=== PATIENT | female | born 1955 | race Two or more races ===

== ENCOUNTER 2017-01-22 20:18 | Inpatient (IN) | payer MEDICAID ==
[~2017-01-22] VITALS: Ht 157.5 cm; Wt 64.9 kg
[~2017-01-22 20:18] MED LIST: ASPIR 8181 MG ORAL; BENAZEPRIL HCL10 MG ORAL; BP MEDS; CIPROFLOXACIN500 M2 ORAL; HUMULIN 70100 UNIT/2 SUBQ; IRON325 M1 PO; LEVAQUIN750 MG ORAL; METFORMIN HCL500 M1 ORAL; METRONIDAZOLE500 MG ORAL; NORCO 5-325 TA1 EACH ORAL; NOVOLOG100 UNIT/3 SUBQ; [UNRECOGNIZED DRUG - SUPPLY] MC; [UNRECOGNIZED DRUG - SUPPLY] MC
[2017-01-22 20:30] VITALS: BP 179/61
[2017-01-22] MEDS ORDERED: IBUPROFEN600 MG ORAL (20:31)
[2017-01-22] MEDS ORDERED: Morphine Sulfate 4mg/ml Inj IVP ONE ×2 (21:00→23:30)
[2017-01-22 21:12] LABS: BASOPHILS % (AUTO) 0.4 % (0.0-2.0); EOSINOPHILS % (AUTO) 0.1 % (0.0-3.0); LYMPHOCYTES % (AUTO) 11.7 % (20.0-45.0); MEAN CORPUSCULAR HEMOGLOBIN 24.4 PG (27.0-31.0); MEAN CORPUSCULAR HGB CONC 31.9 G/DL (32.0-36.0); MEAN CORPUSCULAR VOLUME 76 FL (80-99); MEAN PLATELET VOLUME 6.4 FL (6.5-10.1); MONOCYTES % (AUTO) 7.2 % (1.0-10.0); NEUTROPHILS % (AUTO) 80.6 % (45.0-75.0); PLATELET COUNT 359 K/UL (150-450); RED BLOOD COUNT 4.69 M/UL (4.20-5.40); RED CELL DISTRIBUTION WIDTH 14.6 % (11.6-14.8); WHITE BLOOD COUNT 9.7 K/UL (4.8-10.8)
--- NOTE | 2017-01-22 21:20 | Emergency Room Report ---
History of Present Illness General Chief Complaint: Abdominal Pain Source: Patient (Rubén Marsh) Present Illness HPI Patient is a 61 female who presented after having increased abdominal pain for one day. Patient was noted to be in the right lower abdomen. Patient prior history of bowel obstructions as well as colostomy and urostomy for cervical cancer. The patient had gradually worsening pain over the past one day. She reported having nausea without vomiting. As reported having intermittent worsening of pain. She reports taking medications for diabetes as well as hypertension. (Rubén Marsh) Allergies: Coded Allergies: METOCLOPRAMIDE (Verified Allergy, Unknown, 05/08/11) Patient History Past Medical History: see triage record Now: No Reviewed Nursing Documentation: PMH: Agreed, PSxH: Agreed (Rubén Marsh) Nursing Documentation-PMH Hx Cardiac Problems: Yes Hx Hypertension: Yes Hx Pacemaker: No Hx Asthma: No Hx COPD: No Hx Diabetes: Yes Hx Cancer: Yes - CERVICAL 2004 Hx Gastrointestinal Problems: Yes - Colostomy Hx Dialysis: No Hx Neurological Problems: No Hx Cerebrovascular Accident: No Hx Seizures: No (Rubén Marsh) Review of Systems All Other Systems: negative except mentioned in HPI (Rubén Marsh) Physical Exam Vital Signs Date Time Temp Pulse Resp B/P Pulse Ox O2 Delivery O2 Flow Rate FiO2 01/22/17 20:27 99.7 81 22 190/71 99 Room Air General Appearance: alert, GCS 15, non-toxic, moderate distress Head: normocephalic ENT: hearing grossly normal, normal pharynx Neck: full range of motion, supple, thyroid normal Respiratory: chest non-tender, normal breath sounds Cardiovascular #1: normal peripheral pulses, regular rate, rhythm, no edema Gastrointestinal: normal inspection, normal bowel sounds, non tender, soft, no mass, no organomegaly Musculoskeletal: normal inspection, back normal Neurologic: normal inspection, alert, oriented x3, responsive, movie shot 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 Differential diagnoses included ischemic bowel, appendicitis, perforated viscus, abdominal aortic aneurysm, inferior myocardial infarction, viral gastroenteritis, bowel obstruction. Because of complexity of patient's case laboratory testing and imaging studies were ordered.The patient was given IV fluids as well as IV pain medications. Laboratory studies showed a normal white blood count. Given the patient's prior history of obstruction the patient will likely need further evaluation as an inpatient A CT of the abdomen pelvis was ordered and is currently pending.Dr. Michelle was contacted for inpatient management due to complexity of medical condition. Labs Test 01/22/17 20:51 01/22/17 21:15 White Blood Count 9.7 K/UL (4.8-10.8) Red Blood Count 4.69 M/UL (4.20-5.40) Hemoglobin 11.4 G/DL (12.0-16.0) Hematocrit 35.8 % (37.0-47.0) Mean Corpuscular Volume 76 FL (80-99) Mean Corpuscular Hemoglobin 24.4 PG (27.0-31.0) Mean Corpuscular Hemoglobin Concent 31.9 G/DL (32.0-36.0) Red Cell Distribution Width 14.6 % (11.6-14.8) Platelet Count 359 K/UL (150-450) Mean Platelet Volume 6.4 FL (6.5-10.1) Neutrophils (%) (Auto) 80.6 % (45.0-75.0) Lymphocytes (%) (Auto) 11.7 % (20.0-45.0) Monocytes (%) (Auto) 7.2 % (1.0-10.0) Eosinophils (%) (Auto) 0.1 % (0.0-3.0) Basophils (%) (Auto) 0.4 % (0.0-2.0) Sodium Level 139 mEQ/L (135-145) Potassium Level 3.6 mEQ/L (3.4-4.9) Chloride Level 101 mEQ/L (98-107) Carbon Dioxide Level 24 mEQ/L (20-30) Anion Gap 14 (5-15) Blood Urea Nitrogen 16 mg/dL (7-23) Creatinine 0.6 mg/dL (0.5-0.9) Estimat Glomerular Filtration Rate > 60 mL/min (>60) Glucose Level 251 mg/dL (74-106) Calcium Level 9.3 mg/dL (8.6-10.2) Total Bilirubin 0.4 mg/dL (0.0-1.2) Aspartate Amino Transf (AST/SGOT) 16 U/L (5-40) Alanine Aminotransferase (ALT/SGPT) 17 U/L (3-33) Alkaline Phosphatase 82 U/L (35-104) Total Protein 7.1 g/dL (6.6-8.7) Albumin 3.9 g/dL (3.5-5.2) Globulin 3.2 g/dL Albumin/Globulin Ratio 1.2 (1.0-2.7) Lipase 13 U/L (< 60) (Rubén Marsh) ER Course This is an out to me. She was admitted for UTI and abdominal pain. She had a CT scan done. CT scan showed small bowel obstructions. NG tube will be ordered an x-ray ordered. (AGUSTIN JACOBS M.D.) CT/MRI/US Diagnostic Results CT/MRI/US Diagnostic Results : Imaging Test Ordered: CT abdomen and pelvis Impression read by radiologist. Small bowel obstructions. (AGUSTIN JACOBS M.D.) Last Vital Signs Date Time Temp Pulse Resp B/P Pulse Ox O2 Delivery O2 Flow Rate FiO2 01/22/17 20:30 99.7 73 16 179/61 99 Room Air Status: unchanged (Rubén Marsh) Status: improved (AGUSTIN JACOBS M.D.) Disposition: ADMITTED INPATIENT Condition: Serious Referrals: NOT CHOSEN YU/,REFERRING (PCP) Rubén Marsh Jan 22, 2017 21:20 AGUSTIN JACOBS M.D. Jan 23, 2017 00:14
[2017-01-22 21:29] LABS: ALANINE AMINOTRANSFERASE 17 U/L (3-33); ALBUMIN/GLOBULIN RATIO 1.2 (1.0-2.7); ANION GAP 14 (5-15); ASPARTATE AMINO TRANSFERASE 16 U/L (5-40); CALCIUM 9.3 mg/dL (8.6-10.2); CARBON DIOXIDE 24 mEQ/L (20-30); CHLORIDE 101 mEQ/L (98-107); CREATININE 0.6 mg/dL (0.5-0.9); GLOMERULAR FILTRATION RATE > 60 mL/min (>60); HEMOLYSIS 1; LIPASE 13 U/L (< 60); POTASSIUM 3.6 mEQ/L (3.4-4.9); SODIUM 139 mEQ/L (135-145); TOTAL PROTEIN 7.1 g/dL (6.6-8.7)
[2017-01-22 21:44] LABS: INR 0.9 (0.9-1.1); PROTHROMBIN TIME 9.4 SEC (9.30-11.50)
[2017-01-22 21:55] LABS: APPEARANCE,URINE SLIGHTLY CLOUDY; KETONES,URINE 2+ (NEGATIVE); LEUKOCYTE ESTERASE ,URINE 3+ (NEGATIVE); NITRITE,URINE POSITIVE (NEGATIVE); PH,URINE 9 (4.5-8.0); PROTEIN,URINE 3+ (NEGATIVE); UROBILINOGEN,URINE 4 MG/DL (0.0-1.0)
[2017-01-22 22:13] LABS: RBC,URINE 15-20 /HPF (0 - 2)
[2017-01-22 22:14] LABS: AMORPHOUS SEDIMENT,UR FEW /LPF; BACTERIA,URINE MANY /HPF; ICTOTEST NEGATIVE; SQUAMOUS EPITHELIAL CELL,UR FEW /LPF (NONE/OCC); URIC ACID CRYSTALS,URINE FEW /LPF
[2017-01-22 22:30] VITALS: BP 145/59
[2017-01-22] MEDS ORDERED: cefTRIAXone 1 GM in NS 55 ML IVPB ONE (22:30)
[2017-01-22] MEDS ORDERED: Mylanta II UD 30ml ORAL PRN (23:45)
[2017-01-22] MEDS ORDERED: Ketorolac 30mg Inj IV PRN (23:45)
[2017-01-22] MEDS ORDERED: Nitroglycerin Subl 0.4mg tab (Bottle Of 25) SL PRN (23:45)
[2017-01-22] MEDS ORDERED: Morphine Sulfate 2mg/ml Inj IVP PRN (23:45)
[2017-01-22] MEDS ORDERED: Miralax 17gm pkt ORAL PRN (23:45)
[2017-01-23] VITALS: BP_SYST 135; BP_SYST 153; BP_DIAS 56; BP_DIAS 78
[2017-01-23] MEDS ORDERED: Vancomycin 1gm inj IVPB ONE (00:42)
[2017-01-23] MEDS ORDERED: Zosyn 3.375gm inj ONE (00:42)
[2017-01-23] MEDS ORDERED: Vancomycin 1gm/D5W 275ml IVPB SCH ×2 (01:00)
[2017-01-23] MEDS: Morphine Sulfate 4mg/ml Inj IVP PRN ×2 (03:28→09:51)
[2017-01-23] MEDS: Piperacillin/Tazobactam 3.375 GM in NS 110 ML IVPB SCH ×3 (03:28→18:36)
[2017-01-23 04:00] VITALS: BP 133/67
[2017-01-23] MEDS ORDERED: NovoLOG Insulin Flexpen SUBQ SCH (06:30)
[2017-01-23 06:42] LABS: MEAN CORPUSCULAR HEMOGLOBIN 24.2 PG (27.0-31.0); MEAN CORPUSCULAR HGB CONC 31.6 G/DL (32.0-36.0); MEAN CORPUSCULAR VOLUME 77 FL (80-99); MEAN PLATELET VOLUME 6.4 FL (6.5-10.1); PLATELET COUNT 326 K/UL (150-450); RED BLOOD COUNT 4.35 M/UL (4.20-5.40); RED CELL DISTRIBUTION WIDTH 14.8 % (11.6-14.8); WHITE BLOOD COUNT 8.7 K/UL (4.8-10.8)
[2017-01-23 06:50] LABS: HEMOGLOBIN A1C 7.8 % (< 6.0)
[2017-01-23 07:04] LABS: INR 0.9 (0.9-1.1); PROTHROMBIN TIME 9.5 SEC (9.30-11.50)
[2017-01-23 07:44] LABS: ALANINE AMINOTRANSFERASE 14 U/L (3-33); ALBUMIN/GLOBULIN RATIO 1.2 (1.0-2.7); AMYLASE 40 U/L (10-110); ANION GAP 13 (5-15); ASPARTATE AMINO TRANSFERASE 13 U/L (5-40); CALCIUM 8.3 mg/dL (8.6-10.2); CARBON DIOXIDE 25 mEQ/L (20-30); CHLORIDE 103 mEQ/L (98-107); CREATININE 0.6 mg/dL (0.5-0.9); GLOMERULAR FILTRATION RATE > 60 mL/min (>60); HEMOLYSIS 1; LIPASE 11 U/L (< 60); POTASSIUM 3.1 mEQ/L (3.4-4.9); SODIUM 141 mEQ/L (135-145); TOTAL PROTEIN 6.5 g/dL (6.6-8.7)
[2017-01-23 07:46] LABS: THYROID STIMULATING HORMONE 0.559 uIU/mL (0.300-4.500)
[2017-01-23 08:00] VITALS: BP 136/62
[2017-01-23] MEDS: Benazepril 10mg tab ORAL SCH (09:23)
[2017-01-23] MEDS: Heparin 5000 units/ml inj SUBQ SCH ×2 (09:29→20:33)
--- NOTE | 2017-01-23 09:48 | History and Physical ---
History of Present Illness General Date patient seen: Jan 23, 2017 Time patient seen: 09:00 Reason for Hospitalization: Abdominal Pain Present Illness HPI 61 female with PMH of DM, HTN, cervical cancer presented with increased right lower quadrant abdominal pain for one day. Patient with prior history of bowel obstructions as well as colostomy and urostomy for cervical cancer. Reported nausea w/out vomiting . CT A/P revealed small bowel obstruction versus ileus/enteritis, Fatty liver, Chronic persistent hydronephrosis patient afebrile, no leucocytosis anemic -11.4/35.8 UA with evidence of UTI patient admitted for further management Allergies: Coded Allergies: METOCLOPRAMIDE (Verified Allergy, Unknown, 05/08/11) Medication History Scheduled Aspirin* (Aspir 81*), 81 MG ORAL DAILY, (Reported) Benazepril Hcl* (Benazepril Hcl*), 10 MG ORAL DAILY, (Reported) Ibuprofen* (Motrin*), 600 MG ORAL FOUR TIMES A DAY, (Reported) Metformin Hcl* (Metformin Hcl*), 500 MG ORAL TWICE A DAY, (Reported) Scheduled PRN Ciprofloxacin Hcl* (Ciprofloxacin Hcl*), 500 MG ORAL EVERY 12 HOURS PRN Miscellaneous Medications Hum Insulin Nph/Reg Insulin Hm (Humulin 70-30 Vial), 0 SUBQ, (Reported) Durable Medical Equipment Colostomy Bags (One-Piece Drainable Pouch), 1 EACH [facility], (DME) Colostomy Washer (Adapt Barrier Ring), 1 EACH [facility], (DME) Patient History Healthcare decision maker Resuscitation status Advanced Directive on File Past Medical/Surgical History Past Medical/Surgical History: (1) Cervical cancer (2) Diabetes (3) HTN (hypertension) (4) Anemia Review of Systems Constitutional: Reports: weakness ENT: Reports: no symptoms Respiratory: Reports: no symptoms Cardiovascular: Reports: no symptoms Gastrointestinal: Reports: see HPI Genitourinary: Reports: other - hx of cervical Ca Musculoskeletal: Reports: no symptoms Psychiatric: Reports: no symptoms Neurological: Reports: no symptoms Endocrine: Reports: other - DM Hematologic/Lymphatic: Reports: no symptoms Physical Exam General Appearance: no apparent distress, alert Lines, tubes and drains: peripheral HEENT: normocephalic, atraumatic, anicteric Neck: supple Respiratory/Chest: lungs clear, normal breath sounds, no respiratory distress Cardiovascular/Chest: normal peripheral pulses, normal rate, regular rhythm Abdomen: soft - mild lower abdomen tenderness, no rebound, no guarding, no rigidity , other - colostomy Extremities: normal range of motion, non-tender, no calf tenderness Skin Exam: normal pigmentation, warm/dry Neurologic: alert, oriented x 3, responsive Musculoskeletal: normal muscle bulk Last 24 Hour Vital Signs Date Time Temp Pulse Resp B/P Pulse Ox O2 Delivery O2 Flow Rate FiO2 01/23/17 09:23 136/62 01/23/17 08:00 98.4 73 18 136/62 95 Room Air 01/23/17 04:11 98.2 01/23/17 04:00 98.4 82 20 133/67 Room Air 01/23/17 01:53 98.2 01/23/17 00:00 99.7 87 13 135/56 95 Room Air 01/23/17 00:00 99.7 87 13 135/56 95 Room Air 01/23/17 00:00 98.2 75 20 153/78 97 Room Air 01/22/17 23:53 99.7 01/22/17 22:30 99.7 78 17 145/59 96 Room Air 01/22/17 21:43 99.7 01/22/17 20:30 99.7 73 16 179/61 99 Room Air 01/22/17 20:27 99.7 81 22 190/71 99 Room Air Intake and Output 01/22/17 01/23/17 19:00 07:00 Intake Total 499.916 ml Output Total 1050 ml Balance -550.084 ml Intake IV Total 499.916 ml Output Urine Total 1050 ml Laboratory Tests Test 01/22/17 20:51 01/22/17 21:15 01/23/17 04:30 White Blood Count 9.7 K/UL (4.8-10.8) 8.7 K/UL (4.8-10.8) Red Blood Count 4.69 M/UL (4.20-5.40) 4.35 M/UL (4.20-5.40) Hemoglobin 11.4 G/DL (12.0-16.0) L 10.5 G/DL (12.0-16.0) L Hematocrit 35.8 % (37.0-47.0) L 33.3 % (37.0-47.0) L Mean Corpuscular Volume 76 FL (80-99) L 77 FL (80-99) L Mean Corpuscular Hemoglobin 24.4 PG (27.0-31.0) L 24.2 PG (27.0-31.0) L Mean Corpuscular Hemoglobin Concent 31.9 G/DL (32.0-36.0) L 31.6 G/DL (32.0-36.0) L Red Cell Distribution Width 14.6 % (11.6-14.8) 14.8 % (11.6-14.8) Platelet Count 359 K/UL (150-450) 326 K/UL (150-450) Mean Platelet Volume 6.4 FL (6.5-10.1) L 6.4 FL (6.5-10.1) L Neutrophils (%) (Auto) 80.6 % (45.0-75.0) H % (45.0-75.0) Lymphocytes (%) (Auto) 11.7 % (20.0-45.0) L % (20.0-45.0) Monocytes (%) (Auto) 7.2 % (1.0-10.0) % (1.0-10.0) Eosinophils (%) (Auto) 0.1 % (0.0-3.0) % (0.0-3.0) Basophils (%) (Auto) 0.4 % (0.0-2.0) % (0.0-2.0) Prothrombin Time 9.4 SEC (9.30-11.50) 9.5 SEC (9.30-11.50) Prothromb Time International Ratio 0.9 (0.9-1.1) 0.9 (0.9-1.1) Activated Partial Thromboplast Time 23 SEC (23-33) 24 SEC (23-33) Sodium Level 139 mEQ/L (135-145) 141 mEQ/L (135-145) Potassium Level 3.6 mEQ/L (3.4-4.9) 3.1 mEQ/L (3.4-4.9) L Chloride Level 101 mEQ/L (98-107) 103 mEQ/L (98-107) Carbon Dioxide Level 24 mEQ/L (20-30) 25 mEQ/L (20-30) Anion Gap 14 (5-15) 13 (5-15) Blood Urea Nitrogen 16 mg/dL (7-23) 11 mg/dL (7-23) Creatinine 0.6 mg/dL (0.5-0.9) 0.6 mg/dL (0.5-0.9) Estimat Glomerular Filtration Rate > 60 mL/min (>60) > 60 mL/min (>60) Glucose Level 251 mg/dL (74-106) H 271 mg/dL (74-106) H Calcium Level 9.3 mg/dL (8.6-10.2) 8.3 mg/dL (8.6-10.2) L Total Bilirubin 0.4 mg/dL (0.0-1.2) 0.4 mg/dL (0.0-1.2) Aspartate Amino Transf (AST/SGOT) 16 U/L (5-40) 13 U/L (5-40) Alanine Aminotransferase (ALT/SGPT) 17 U/L (3-33) 14 U/L (3-33) Alkaline Phosphatase 82 U/L (35-104) 74 U/L (35-104) Total Protein 7.1 g/dL (6.6-8.7) 6.5 g/dL (6.6-8.7) L Albumin 3.9 g/dL (3.5-5.2) 3.6 g/dL (3.5-5.2) Globulin 3.2 g/dL 2.9 g/dL Albumin/Globulin Ratio 1.2 (1.0-2.7) 1.2 (1.0-2.7) Lipase 13 U/L (< 60) 11 U/L (< 60) Urine Color Brown Urine Appearance Slightly cloudy Urine pH 9 (4.5-8.0) Urine Specific [place] 1.015 (1.005-1.035) Urine Protein 3+ (NEGATIVE) H Urine Glucose (UA) Negative (NEGATIVE) Urine Ketones 2+ (NEGATIVE) H Urine Occult Blood 4+ (NEGATIVE) H Urine Nitrite Positive (NEGATIVE) H Urine Bilirubin 1+ (NEGATIVE) H Urine Ictotest Negative Urine Urobilinogen 4 MG/DL (0.0-1.0) H Urine Leukocyte Esterase 3+ (NEGATIVE) H Urine RBC 15-20 /HPF (0 - 2) H Urine WBC 10-15 /HPF (0 - 2) H Urine Squamous Epithelial Cells Few /LPF (NONE/OCC) Urine Uric Acid Crystals Few /LPF (NONE) H Urine Amorphous Sediment Few /LPF (NONE) H Urine Bacteria Many /HPF (NONE) H Neutrophils % (Manual) Pending Lymphocytes % (Manual) Pending Platelet Estimate Pending Platelet Morphology Pending Hemoglobin A1c 7.8 % (< 6.0) H Amylase Level 40 U/L (10-110) Thyroid Stimulating Hormone (TSH) 0.559 uIU/mL (0.300-4.500) Height (Feet): 5 Height (Inches): 2.00 Weight (Pounds): 143 Medications Current Medications Medications (Trade) Dose Ordered Sig/Jeannie Route PRN Reason Start Time Stop Time Status Last Admin Dose Admin Acetaminophen (Tylenol) 650 mg Q4H PRN ORAL fever 01/22/17 23:45 02/21/17 23:44 Al Hydroxide/Mg Hydroxide (Mylanta II) 30 ml Q6H PRN ORAL dyspepsia 01/22/17 23:45 02/21/17 23:44 Benazepril HCl (Lotensin) 10 mg DAILY ORAL 01/23/17 09:00 02/22/17 08:59 01/23/17 09:23 Dextrose (Dextrose 50%) STAT PRN IV Hypoglycemia 01/22/17 23:45 02/21/17 23:44 Diphenhydramine HCl (Benadryl) 25 mg Q6H PRN ORAL Itching/Pruritis 01/22/17 23:45 02/21/17 23:44 Heparin Sodium (Porcine) (Heparin 5000 units/ml) 5,000 units EVERY 12 HOURS SUBQ 01/23/17 09:00 02/22/17 08:59 01/23/17 09:29 Insulin Aspart BEFORE MEALS AND HS SUBQ 01/23/17 06:30 02/22/17 06:29 Ketorolac Tromethamine 30 mg 30 mg Q6H PRN IV moderate pian 4-6 01/22/17 23:45 01/27/17 23:44 Morphine Sulfate (Morphine Sulfate) 4 mg Q2H PRN IVP For Severe Pain 01/23/17 03:15 01/30/17 03:14 01/23/17 03:28 Nitroglycerin (Ntg) 0.4 mg Q5M X 3 DOSES PRN SL Prn Chest Pain 01/22/17 23:45 02/21/17 23:44 Ondansetron HCl (Zofran) 4 mg Q6H PRN IVP Nausea & Vomiting 01/22/17 23:45 02/21/17 23:44 Piperacillin Sod/ Tazobactam Sod/ Sodium Chloride (Zosyn/Sodium Chloride) 110 ml @ 27.5 mls/hr Q8H IVPB 01/23/17 02:00 01/30/17 01:59 01/23/17 09:22 Polyethylene Glycol (Miralax) 17 gm HSPRN PRN ORAL Constipation 01/22/17 23:45 02/21/17 23:44 Sodium Chloride (Sodium Chloride 1000ml bag) 1,000 ml @ 50 mls/hr Q20H IV 01/23/17 00:00 02/22/17 00:00 01/23/17 00:29 Temazepam (Restoril) 15 mg HSPRN PRN ORAL Insomnia 01/22/17 23:45 01/29/17 23:44 Vancomycin HCl 1 ea 1 ea DAILY PRN MISC Per rx protocol 01/22/17 23:45 02/21/17 23:44 Vancomycin HCl/ Dextrose (Vancomycin/D5W) 275 ml @ 183.708 mls/hr Q12H IVPB 01/23/17 01:00 01/28/17 00:59 01/23/17 00:57 Assessment/Plan Assessment/Plan ASSESSMENT partial SBO UTI abdominal pain DM hx of cervical Ca HTN colostomy PLAN OF CARE MS floor NPO IVF NGT to suction surgery eval pain management colostomy care abdominal X ray in am empiric abx, fup with cx ID follows BS management with SS of insulin BP management with JASSON and optimize further as needed replace K, check K and Mg in am venous Duplex BLE abdominal US DVT prophylaxis case discussed and evaluated by supervising physician Jackie Alegre NP (Vanchtein) Jan 23, 2017 09:48
--- NOTE | 2017-01-23 10:18 | Diagnostic Imaging Report ---
Indication: Abdominal pain Technique: Continuous helical transaxial imaging of the abdomen and pelvis was obtained from the lung bases to the pubic symphysis during intravenous contrast administration. Coronal 2-D reformats were also obtained. Study obtained in a Siemens sensation [address] Total Dose length Product (DLP): [address] Dose Index Volume (CTDIvol): 19 mGy Comparison: 04/13/14 and 10/10/15 CTs Findings: Previous studies were reviewed. Once again there is persistent dilated segment of small bowel in the right lower quadrant of the abdomen associated with anastomotic sutures and moderate fecal material (fecalized small bowel) indicative of stasis. This is chronic and involves the terminal ileum. There is an apparent transition between this chronically dilated dilated loop and more distal terminal ileum which is relatively decompressed. Small bowel obstruction is the obvious concern and certainly possible but the transition between fecalized portion of terminal ileum and more distal terminal ileum was more or less seen before as well. The more proximal small bowel dilatation however is new since the last study and could reflect a bowel obstruction or ileus/enteritis. Please correlate clinically. There is no pneumatosis or free air. There is a small amount of free fluid present. The patient has had a previous total cystectomy with formation of ileal conduit and urostomy in the right lower quadrant. Once again there is mild hydronephrosis bilaterally which does not appear obstructive. Is there is a stone demonstrated within the ileal conduit (for example image 50 series 3). At the site of the urostomy there is a parastomal hernia containing nondilated small bowel. However there is no transition of the small bowel to suggest obstruction. A small right paraumbilical hernia noted containing small bowel without associated obstruction. Patient is had previous partial left hemicolectomy. There is a diverting left lower quadrant colostomy which appears unremarkable. The liver is low in attenuation consistent with fatty infiltration. Small hiatal hernia is present. Atrophic uterus is noted. Degenerative changes of the lumbar spine demonstrated multiple locations associated with vacuum phenomena and osteophytes. Anterolisthesis noted at L4-5. Impression: Development of moderate small bowel dilatation to the level of atonic fecalized surgically anastomosed region of partially resected terminal ileum in the right lower quadrant. Although the fecalized portion of the terminal ileum appearance is unchanged, the more proximal small bowel dilatation is new. Considerations include small bowel obstruction versus ileus/enteritis. Please correlate clinically. Followup is recommended. Chronic persistent hydronephrosis without apparent obstruction terminating in an ileal conduit. Urostomy with a parastomal hernia noted. Status post total cystectomy. 1.2 cm stone noted within the proximal ileal conduit. Status post left hemicolectomy and diverting colostomy. Fatty liver Hiatal hernia Spondylosis The CT scanner at [facility] is accredited by the [employer] and the scans are performed using dose optimization techniques as appropriate to a performed exam including Automatic Exposure control.
[2017-01-23 10:50] LABS: BAND NEUTROPHILS % (MANUAL) 3 % (0-8); BASOPHILS % (MANUAL) 0 % (0-2); EOSINOPHILS % (MANUAL) 1 % (0-3); LYMPHOCYTES % (MANUAL) 15 % (20-45); NEUTROPHILS % (MANUAL) 73 % (45-75); PLATELET ESTIMATE ADEQUATE; PLATELET MORPHOLOGY NORMAL; TOTAL CELLS COUNTED 100
--- NOTE | 2017-01-23 11:08 | General Progress Note ---
Progress Note Progress Note Consult dictated, pt examined. Pt has a partial SBO complicated by dietary indiscretions. She will need bowel rest for now. We will obtain a 2 view abdomen x-ray tomorrow. Bong Amaya MD Jan 23, 2017 11:08
[2017-01-23 12:00] VITALS: BP 150/67
[2017-01-23] MEDS: NovoLOG Insulin Flexpen SUBQ SCH ×3 (12:12→20:33)
[2017-01-23] MEDS ORDERED: KCl 10% 40mEq/30ml liquid NG ONE (13:00)
--- NOTE | 2017-01-23 13:21 | Consultation ---
Consult Note Consult Note ID Dic # [id number] MENDY WALDEN M.D. Jan 23, 2017 13:21
--- NOTE | 2017-01-23 14:16 | Consultation ---
DATE OF CONSULTATION: INFECTIOUS DISEASES CONSULTATION CONSULTING PHYSICIAN: Alton Edgar M.D. REQUESTING PHYSICIAN: Luis M Michelle M.D. REASON FOR CONSULTATION: Intraabdominal sepsis and antibiotic management. HISTORY OF PRESENT ILLNESS: The patient is an unfortunate 61-year-old female with multiple medical problems, who was admitted to this medical center due to abdominal pain. Surgical consultation was requested and the patient has partial small bowel obstruction. The patient was placed on NPO and G-tube was placed. An Infectious Disease consultation has been requested for further evaluation of the patient. PAST MEDICAL HISTORY: 1. History of colostomy. 2. History of urostomy. 3. History of cervical cancer. 4. Hypertension. 5. Diabetes MEDICATIONS: IV Zosyn and vancomycin. ALLERGIES: Metoclopramide. SOCIAL HISTORY: Negative for alcohol, drug abuse, or smoking. FAMILY HISTORY: Noncontributory. REVIEW OF SYSTEMS: A 10-point was done and except what is mentioned above has been negative. PHYSICAL EXAMINATION: VITAL SIGNS: Temperature 98.4 degrees, blood pressure 150/61, pulse 66, and respiratory rate 18. HEENT: Mild pale conjunctivae. No icterus. NECK: No lymphadenopathy. CHEST: Coarse breath sounds. HEART: S1 and S2. ABDOMEN: Soft. The patient has urostomy and colostomy. Nontender at the time of my exam . EXTREMITIES: No cyanosis at this time. NEUROLOGIC: Awake. LABORATORY AND DIAGNOSTIC DATA: White blood cell count is 8.7, hemoglobin 10.4, and platelets 226,000. UA showed 10 to 15 white blood cells. BUN is 13.6. ALT, AST, and alkaline phosphatase are unremarkable. CT of the abdomen, moderate small bowel dilatation and chronic persistent hydronephrosis. ASSESSMENT: The patient is a 61-year-old female with multiple medical problems, who has: 1. Partial small bowel obstruction. 2. Abdominal pain. PLAN: 1. We will continue the patient on IV Zosyn day #2, discontinue IV vancomycin. 2. Monitor CBC. 3. Monitor BMP. 4. Monitor urine culture. 5. We will follow surgical recommendation. 6. We will follow ultrasound of the abdomen. 7. Based on the patient's clinical course and labs, we will do further recommendation. I will follow the patient with you during this admission. Alton Edgar M.D. DR: NATHALIE JOB#: [id number] CC:
--- NOTE | 2017-01-23 15:46 | Consultation ---
DATE OF CONSULTATION: 01/23/2017 REASON FOR CONSULTATION: Abdominal pain, rule out small bowel obstruction. HISTORY OF PRESENT ILLNESS: This 61-year-old female ate some pizza and gelatin last night, resulting in nausea and abdominal pain. The patient has a complex history of having had a cervical carcinoma in 2003. She underwent a diverting sigmoid colostomy in 2004. Due to problems with vesicovaginal fistula, she underwent a cystectomy and ileal loop urinary diversion in 2005. The patient reports occasional problems due to dietary indiscretion. She has had prior problems with intestinal obstruction before. PAST MEDICAL HISTORY/PREVIOUS SURGERY: See history of present illness. ALLERGIES: Metoclopramide. MEDICATIONS: Aspirin 81 mg daily, benazepril 10 mg daily, Humulin insulin, metformin 500 mg twice a day. SOCIAL HISTORY: Tobacco, none. Alcohol, none. FAMILY HISTORY: Noncontributory. REVIEW OF SYSTEMS: Essentially negative. PHYSICAL EXAMINATION: GENERAL: Reveals a well-developed and well-nourished female, complaining of discomfort from her nasogastric tube. HEENT: Normocephalic, pupils are equal and reactive to light. There was no scleral icterus. NECK: Supple without adenopathy. LUNGS: Clear. HEART: Showed a regular rhythm without murmurs or gallops. ABDOMEN: Soft. There is a healed midline scar. There is a colostomy in the left lower quadrant. There is some stool in the bag. The right lower quadrant shows an ileal conduit with urine in the bag. There was no tenderness or guarding. There were no palpable masses. EXTREMITIES: Showed no clubbing, cyanosis, or edema. LABORATORY DATA: CBC today shows a white blood count of 8700, hemoglobin 10.5 grams percent, hematocrit 33.3%, platelet count 326,000. Urinalysis showed evidence of a urinary tract infection with many bacteria, 3+ leukocyte esterase, 10 to 15 white blood cells. Clinical chemistry today shows sodium 141, potassium 3.1 chloride 103, bicarbonate 25, BUN 11, creatinine 0.6, glucose 271. SGOT 14, SGPT 13, total bilirubin 0.4, amylase was normal at 40. The CT scan was reviewed with the radiologist. There is some dilated small bowel as well as fecalization in the terminal ileum. The changes appear somewhat chronic as a study from 2013 also showed the fecalization of the distal ileum. IMPRESSION: Partial small bowel obstruction, possibly exacerbated by dietary indiscretion. PLAN: The patient will need to continue on bowel rest and intravenous antibiotics for now. We will repeat an abdominal series tomorrow morning. Bong Amaya M.D. DR: Eden JOB#: [id number] CC:
[2017-01-23 15:59] VITALS: BP 135/68
[2017-01-23 20:11] VITALS: BP 121/64
[2017-01-23] MEDS ORDERED: Tubing IV Secondary IV ONE (22:57)
[2017-01-23] MEDS ORDERED: D5W 275ml ONE (22:57)
[2017-01-24 00:03] VITALS: BP 146/68
[2017-01-24] MEDS: Piperacillin/Tazobactam 3.375 GM in NS 110 ML IVPB SCH ×3 (01:17→17:00)
[2017-01-24] MEDS: Morphine Sulfate 4mg/ml Inj IVP PRN (01:18)
[2017-01-24 04:16] VITALS: BP 109/57
[2017-01-24] MEDS: NovoLOG Insulin Flexpen SUBQ SCH ×4 (06:35→21:06)
[2017-01-24 08:09] VITALS: BP_SYST 106; BP_SYST 120; BP_DIAS 62; BP_DIAS 66
[2017-01-24 08:22] LABS: ANION GAP 13 (5-15); CALCIUM 8.6 mg/dL (8.6-10.2); CARBON DIOXIDE 24 mEQ/L (20-30); CHLORIDE 107 mEQ/L (98-107); CREATININE 0.7 mg/dL (0.5-0.9); GLOMERULAR FILTRATION RATE > 60 mL/min (>60); HEMOLYSIS 2; MAGNESIUM 2.2 mg/dL (1.7-2.5); POTASSIUM 3.7 mEQ/L (3.4-4.9); SODIUM 144 mEQ/L (135-145)
[2017-01-24 08:28] LABS: EOSINOPHILS % (AUTO) 1.6 % (0.0-3.0); LYMPHOCYTES % (AUTO) 31.9 % (20.0-45.0); MEAN CORPUSCULAR HEMOGLOBIN 23.6 PG (27.0-31.0); MEAN CORPUSCULAR HGB CONC 30.5 G/DL (32.0-36.0); MEAN CORPUSCULAR VOLUME 77 FL (80-99); MEAN PLATELET VOLUME 6.5 FL (6.5-10.1); MONOCYTES % (AUTO) 8.1 % (1.0-10.0); NEUTROPHILS % (AUTO) 57.5 % (45.0-75.0); PLATELET COUNT 313 K/UL (150-450); RED BLOOD COUNT 4.32 M/UL (4.20-5.40)
[2017-01-24] MEDS: Benazepril 10mg tab ORAL SCH (09:16)
[2017-01-24] MEDS: Heparin 5000 units/ml inj SUBQ SCH ×2 (09:17→21:05)
--- NOTE | 2017-01-24 09:19 | Diagnostic Imaging Report ---
Indication: Abdominal pain Comparison: None Single view of the abdomen obtained NG tube is in good position. There is contrast within the stomach. Bowel gas pattern is nonspecific. There are multiple clips within the abdomen. Degenerative changes of the lumbar spine noted. Impression: No acute findings. NG tube in good position
[2017-01-24 12:00] VITALS: BP 131/65
--- NOTE | 2017-01-24 12:07 | Infectious Diseases Prog Note ---
Assessment/Plan Assessment/Plan A; Small bowel obstruction improving UTI DM Cervical cancer s/p Colostomy s/p Urostomy Anemia P; continue Zosyn will f/u cultures Subjective ROS Limited/Unobtainable: No Respiratory: Reports: no symptoms Cardiovascular: Reports: no symptoms Gastrointestinal/Abdominal: Reports: no symptoms Genitourinary: Reports: no symptoms Allergies: Coded Allergies: METOCLOPRAMIDE (Verified Allergy, Unknown, 05/08/11) Objective Vital Signs Last 24 Hour Vital Signs Date Time Temp Pulse Resp B/P Pulse Ox O2 Delivery O2 Flow Rate FiO2 01/24/17 09:16 120/62 01/24/17 08:09 98.1 57 18 120/62 97 Room Air 01/24/17 04:16 98.7 66 18 109/57 96 Room Air 01/24/17 01:58 97.3 01/24/17 00:03 97.3 70 18 146/68 97 Room Air 01/23/17 20:11 98.6 67 18 121/64 96 Room Air 01/23/17 15:59 97.7 69 18 135/68 97 Room Air 01/23/17 12:59 98.4 Height (Feet): 5 Height (Inches): 2.00 Weight (Pounds): 143 General Appearance: no acute distress HEENT: mucous membranes moist Respiratory/Chest: lungs clear Cardiovascular: normal rate Abdomen: soft, non tender, other - s/p colostomy, s/p urostomy Extremities: no edema Neurologic/Psychiatric: alert, oriented x 3, responsive Microbiology Date/Time Source Procedure Growth Status 01/22/17 21:15 Urine,Clean Catch Urine Culture - Preliminary Gram Negative Bacillus 1 Resulted Laboratory Tests Test 01/24/17 05:45 White Blood Count 5.0 K/UL (4.8-10.8) Red Blood Count 4.32 M/UL (4.20-5.40) Hemoglobin 10.2 G/DL (12.0-16.0) L Hematocrit 33.3 % (37.0-47.0) L Mean Corpuscular Volume 77 FL (80-99) L Mean Corpuscular Hemoglobin 23.6 PG (27.0-31.0) L Mean Corpuscular Hemoglobin Concent 30.5 G/DL (32.0-36.0) L Red Cell Distribution Width 15.0 % (11.6-14.8) H Platelet Count 313 K/UL (150-450) Mean Platelet Volume 6.5 FL (6.5-10.1) Neutrophils (%) (Auto) 57.5 % (45.0-75.0) Lymphocytes (%) (Auto) 31.9 % (20.0-45.0) Monocytes (%) (Auto) 8.1 % (1.0-10.0) Eosinophils (%) (Auto) 1.6 % (0.0-3.0) Basophils (%) (Auto) 1.0 % (0.0-2.0) Sodium Level 144 mEQ/L (135-145) Potassium Level 3.7 mEQ/L (3.4-4.9) Chloride Level 107 mEQ/L (98-107) Carbon Dioxide Level 24 mEQ/L (20-30) Anion Gap 13 (5-15) Blood Urea Nitrogen 13 mg/dL (7-23) Creatinine 0.7 mg/dL (0.5-0.9) Estimat Glomerular Filtration Rate > 60 mL/min (>60) Glucose Level 148 mg/dL (74-106) #H Calcium Level 8.6 mg/dL (8.6-10.2) Magnesium Level 2.2 mg/dL (1.7-2.5) Current Medications Medications (Trade) Dose Ordered Sig/Jeannie Route PRN Reason Start Time Stop Time Status Last Admin Dose Admin Acetaminophen (Tylenol) 650 mg Q4H PRN ORAL fever 01/22/17 23:45 02/21/17 23:44 01/23/17 12:00 Al Hydroxide/Mg Hydroxide (Mylanta II) 30 ml Q6H PRN ORAL dyspepsia 01/22/17 23:45 02/21/17 23:44 Benazepril HCl (Lotensin) 10 mg DAILY ORAL 01/23/17 09:00 02/22/17 08:59 01/24/17 09:16 Dextrose (Dextrose 50%) STAT PRN IV Hypoglycemia 01/22/17 23:45 02/21/17 23:44 Diphenhydramine HCl (Benadryl) 25 mg Q6H PRN ORAL Itching/Pruritis 01/22/17 23:45 02/21/17 23:44 Heparin Sodium (Porcine) (Heparin 5000 units/ml) 5,000 units EVERY 12 HOURS SUBQ 01/23/17 09:00 02/22/17 08:59 01/24/17 09:17 Insulin Aspart (NovoLOG) if NPO give half of coverage BEFORE MEALS AND HS SUBQ 01/23/17 12:30 02/22/17 12:29 01/24/17 06:35 Ketorolac Tromethamine 30 mg 30 mg Q6H PRN IV moderate pian 4-6 01/22/17 23:45 01/27/17 23:44 Morphine Sulfate (Morphine Sulfate) 4 mg Q2H PRN IVP For Severe Pain 01/23/17 03:15 01/30/17 03:14 01/24/17 01:18 Nitroglycerin (Ntg) 0.4 mg Q5M X 3 DOSES PRN SL Prn Chest Pain 01/22/17 23:45 02/21/17 23:44 Ondansetron HCl (Zofran) 4 mg Q6H PRN IVP Nausea & Vomiting 01/22/17 23:45 02/21/17 23:44 Piperacillin Sod/ Tazobactam Sod/ Sodium Chloride (Zosyn/Sodium Chloride) 110 ml @ 27.5 mls/hr Q8H IVPB 01/23/17 02:00 01/30/17 01:59 01/24/17 10:44 Polyethylene Glycol (Miralax) 17 gm HSPRN PRN ORAL Constipation 01/22/17 23:45 02/21/17 23:44 Sodium Chloride 1,000 ml @ 50 mls/hr Q20H IV 01/23/17 00:00 02/22/17 00:00 01/23/17 20:30 Temazepam (Restoril) 15 mg HSPRN PRN ORAL Insomnia 01/22/17 23:45 01/29/17 23:44 GUANAKO CASTRO Jan 24, 2017 12:07
--- NOTE | 2017-01-24 12:24 | Pulmonology Progress Note ---
Assessment/Plan Assessment/Plan ASSESSMENT partial SBO UTI abdominal pain DM hx of cervical Ca HTN colostomy PLAN OF CARE MS floor NPO IVF NGT with suction stopped by surgeon,. no drainage abdominal X ray 01/23 no evidence of bowel obstruction pain management colostomy care start clear liquid diet as tolerated surgery follows empiric abx, urine cx + GNB ID follows BS management with SS of insulin , [id number], not at goal BP management with JASSON and optimize further as needed K stable after replacement , Mg stable venous Duplex BLE abdominal US DVT prophylaxis case discussed and evaluated by supervising physician Subjective Allergies: Coded Allergies: METOCLOPRAMIDE (Verified Allergy, Unknown, 05/08/11) Subjective afebrile, no leucocytosis abdominal pain resolved abdominal X ray pending NGT with suction dc by surgeon , no drainage Objective Last 24 Hour Vital Signs Date Time Temp Pulse Resp B/P Pulse Ox O2 Delivery O2 Flow Rate FiO2 01/24/17 12:00 98.2 62 18 131/65 97 Room Air 01/24/17 09:16 120/62 01/24/17 08:09 98.1 57 18 120/62 97 Room Air 01/24/17 04:16 98.7 66 18 109/57 96 Room Air 01/24/17 01:58 97.3 01/24/17 00:03 97.3 70 18 146/68 97 Room Air 01/23/17 20:11 98.6 67 18 121/64 96 Room Air 01/23/17 15:59 97.7 69 18 135/68 97 Room Air 01/23/17 12:59 98.4 Intake and Output 01/23/17 01/24/17 19:00 07:00 Intake Total 610.0 ml 370.0 ml Output Total 900 ml 1050 ml Balance -290.0 ml -680.0 ml Intake IV Total 610.0 ml 370.0 ml Other 900 ml 1050 ml Objective General Appearance: no apparent distress, alert Lines, tubes and drains: peripheral HEENT: normocephalic, atraumatic, anicteric, NGT Neck: supple Respiratory/Chest: lungs clear, normal breath sounds, no respiratory distress Cardiovascular/Chest: normal peripheral pulses, normal rate, regular rhythm Abdomen: soft - mild lower abdomen tenderness, no rebound, no guarding, no rigidity , other - colostomy Extremities: normal range of motion, non-tender, no calf tenderness Skin Exam: normal pigmentation, warm/dry Neurologic: alert, oriented x 3, responsive Musculoskeletal: normal muscle bulk Microbiology Date/Time Source Procedure Growth Status 01/22/17 21:15 Urine,Clean Catch Urine Culture - Preliminary Gram Negative Bacillus 1 Resulted Laboratory Tests 01/24/17 05:45: White Blood Count 5.0, Red Blood Count 4.32, Hemoglobin 10.2L, Hematocrit 33.3L , Mean Corpuscular Volume 77L, Mean Corpuscular Hemoglobin 23.6L, Mean Corpuscular Hemoglobin Concent 30.5L, Red Cell Distribution Width 15.0H, Platelet Count 313, Mean Platelet Volume 6.5, Neutrophils (%) (Auto) 57.5, Lymphocytes (%) (Auto) 31.9, Monocytes (%) (Auto) 8.1, Eosinophils (%) (Auto) 1.6, Basophils (%) (Auto) 1.0, Sodium Level 144, Potassium Level 3.7, Chloride Level 107, Carbon Dioxide Level 24, Anion Gap 13, Blood Urea Nitrogen 13, Creatinine 0.7, Estimat Glomerular Filtration Rate > 60, Glucose Level 148#H, Calcium Level 8.6, Magnesium Level 2.2 Current Medications Medications (Trade) Dose Ordered Sig/Jeannie Route PRN Reason Start Time Stop Time Status Last Admin Dose Admin Acetaminophen (Tylenol) 650 mg Q4H PRN ORAL fever 01/22/17 23:45 02/21/17 23:44 01/23/17 12:00 Al Hydroxide/Mg Hydroxide (Mylanta II) 30 ml Q6H PRN ORAL dyspepsia 01/22/17 23:45 02/21/17 23:44 Benazepril HCl (Lotensin) 10 mg DAILY ORAL 01/23/17 09:00 02/22/17 08:59 01/24/17 09:16 Dextrose (Dextrose 50%) STAT PRN IV Hypoglycemia 01/22/17 23:45 02/21/17 23:44 Diphenhydramine HCl (Benadryl) 25 mg Q6H PRN ORAL Itching/Pruritis 01/22/17 23:45 02/21/17 23:44 Heparin Sodium (Porcine) (Heparin 5000 units/ml) 5,000 units EVERY 12 HOURS SUBQ 01/23/17 09:00 02/22/17 08:59 01/24/17 09:17 Insulin Aspart (NovoLOG) if NPO give half of coverage BEFORE MEALS AND HS SUBQ 01/23/17 12:30 02/22/17 12:29 01/24/17 06:35 Ketorolac Tromethamine 30 mg 30 mg Q6H PRN IV moderate pian 4-6 01/22/17 23:45 01/27/17 23:44 Morphine Sulfate (Morphine Sulfate) 4 mg Q2H PRN IVP For Severe Pain 01/23/17 03:15 01/30/17 03:14 01/24/17 01:18 Nitroglycerin (Ntg) 0.4 mg Q5M X 3 DOSES PRN SL Prn Chest Pain 01/22/17 23:45 02/21/17 23:44 Ondansetron HCl (Zofran) 4 mg Q6H PRN IVP Nausea & Vomiting 01/22/17 23:45 02/21/17 23:44 Piperacillin Sod/ Tazobactam Sod/ Sodium Chloride (Zosyn/Sodium Chloride) 110 ml @ 27.5 mls/hr Q8H IVPB 01/23/17 02:00 01/30/17 01:59 01/24/17 10:44 Polyethylene Glycol (Miralax) 17 gm HSPRN PRN ORAL Constipation 01/22/17 23:45 02/21/17 23:44 Sodium Chloride 1,000 ml @ 50 mls/hr Q20H IV 01/23/17 00:00 02/22/17 00:00 01/23/17 20:30 Temazepam (Restoril) 15 mg HSPRN PRN ORAL Insomnia 01/22/17 23:45 01/29/17 23:44 Jackie Alegre NP (Vanchtein) Jan 24, 2017 12:24
--- NOTE | 2017-01-24 14:11 | General Progress Note ---
Progress Note Progress Note Afebrile, VSS. Pt is feeling better, no N or V. KUB yesterday did not reveal an obstructive pattern. Colostomy is draining well. We will start a clear liquid diet. Bong Amaya MD Jan 24, 2017 14:11
[2017-01-24 16:15] VITALS: BP 142/70
[2017-01-24 20:13] VITALS: BP 138/68
[2017-01-25] MEDS: Piperacillin/Tazobactam 3.375 GM in NS 110 ML IVPB SCH ×2 (01:25→09:02)
[2017-01-25 04:48] VITALS: BP 117/57
[2017-01-25] MEDS: NovoLOG Insulin Flexpen SUBQ SCH ×2 (05:59→11:53)
[2017-01-25 07:15] LABS: BASOPHILS % (AUTO) 0.7 % (0.0-2.0); EOSINOPHILS % (AUTO) 2.4 % (0.0-3.0); LYMPHOCYTES % (AUTO) 35.7 % (20.0-45.0); MEAN CORPUSCULAR HEMOGLOBIN 23.6 PG (27.0-31.0); MEAN CORPUSCULAR HGB CONC 30.4 G/DL (32.0-36.0); MEAN CORPUSCULAR VOLUME 78 FL (80-99); MEAN PLATELET VOLUME 6.5 FL (6.5-10.1); MONOCYTES % (AUTO) 11.6 % (1.0-10.0); NEUTROPHILS % (AUTO) 49.6 % (45.0-75.0); PLATELET COUNT 285 K/UL (150-450); RED BLOOD COUNT 4.03 M/UL (4.20-5.40); RED CELL DISTRIBUTION WIDTH 15.2 % (11.6-14.8); WHITE BLOOD COUNT 4.4 K/UL (4.8-10.8)
[2017-01-25 07:35] LABS: ANION GAP 13 (5-15); CALCIUM 8.7 mg/dL (8.6-10.2); CARBON DIOXIDE 22 mEQ/L (20-30); CHLORIDE 106 mEQ/L (98-107); CREATININE 0.6 mg/dL (0.5-0.9); GLOMERULAR FILTRATION RATE > 60 mL/min (>60); HEMOLYSIS 2; POTASSIUM 3.6 mEQ/L (3.4-4.9); SODIUM 141 mEQ/L (135-145)
[2017-01-25 08:00] VITALS: BP 138/71
[2017-01-25] MEDS: Benazepril 10mg tab ORAL SCH (09:00)
[2017-01-25] MEDS: Heparin 5000 units/ml inj SUBQ SCH (09:01)
--- NOTE | 2017-01-25 09:36 | Diagnostic Imaging Report ---
Indication: Abdominal pain Comparison: 01/23/17 Single view of the abdomen obtained Findings: Bowel gas pattern is nonspecific. Surgical clips noted. NG tube previously seen was removed. No mass, ectopic calcifications, or abnormal gas collections are identified. The bones are unremarkable. Impression: No significant change.
--- NOTE | 2017-01-25 09:37 | Diagnostic Imaging Report ---
Indication:Abdominal pain Technique: Grayscale and duplex Doppler imaging of the abdomen performed. Comparison: None Findings: The liver is echogenic with no biliary dilatation or focal lesions. The main portal vein is patent by Doppler examination. There is no free fluid or splenomegaly. There are some pelvocaliectasis bilaterally. Urinary bladder and IVC are unremarkable. Demonstrated part of the pancreas and spleen appear unremarkable. Gallbladder is unremarkable. No biliary ductal dilatation is appreciated. Impression: Fatty liver. Mild pelvocaliectasis demonstrated bilaterally. Findings may be normal. Please correlate clinically
[2017-01-25 11:44] VITALS: BP 156/90
--- NOTE | 2017-01-25 11:49 | General Progress Note ---
Progress Note Progress Note surgery: patient seen and examined at bedside. doing well. no acute events. comfortable. tolerating clears. ambulatory. no pain. no n/v/f/c. afebrile, HD stable, labs okay, exam benign. X-rays okay okay to d/c from surgical standpoint. diet as tolerated. Andrea Bernal Jan 25, 2017 11:49
--- NOTE | 2017-01-25 13:40 | Diagnostic Imaging Report ---
APPROVED REPORT CPT Code: 45823 Present Symptoms Lower Extremity Pain: Bilateral BILATERAL: Imaging reveals a patent deep venous system bilaterally. There is no evidence of thrombus within the femoral, popliteal or tibial segments. The greater saphenous veins are also within normal limits. Doppler indicates normal spontaneous flow within these segments.
--- NOTE | 2017-01-25 14:18 | Pulmonology Progress Note ---
Assessment/Plan Problems: (1) Abdominal pain (2) Diabetes (3) Anemia (4) Colostomy care (5) Cervical cancer Assessment/Plan improving symptomatic treatment dc home Subjective ROS Limited/Unobtainable: No Constitutional: Reports: no symptoms Respiratory: Reports: no symptoms Allergies: Coded Allergies: METOCLOPRAMIDE (Verified Allergy, Unknown, 05/08/11) Objective Last 24 Hour Vital Signs Date Time Temp Pulse Resp B/P Pulse Ox O2 Delivery O2 Flow Rate FiO2 01/25/17 11:44 97.0 58 18 156/90 98 Room Air 01/25/17 09:00 138/71 01/25/17 08:00 60 18 138/71 98 Room Air 01/25/17 04:48 98.3 58 18 117/57 98 Room Air 01/24/17 20:13 98.1 53 15 138/68 100 Room Air 01/24/17 16:15 97.9 58 18 142/70 99 Room Air Intake and Output 01/24/17 01/25/17 19:00 07:00 Intake Total 1075.0 ml 250 ml Output Total 900 ml Balance 1075.0 ml -650 ml Intake Oral 610 ml IV Total 465.0 ml 250 ml Output Urine Total 600 ml Other 300 ml General Appearance: WD/WN HEENT: normocephalic, atraumatic Respiratory/Chest: chest wall non-tender, lungs clear Cardiovascular: normal peripheral pulses, normal rate Abdomen: normal bowel sounds, soft, non tender Genitourinary: normal external genitalia Extremities: no clubbing Skin: no ulcers Microbiology Date/Time Source Procedure Growth Status 01/22/17 21:15 Urine,Clean Catch Urine Culture - Final Escherichia Coli Complete Laboratory Tests 01/25/17 05:30: White Blood Count 4.4L, Red Blood Count 4.03L, Hemoglobin 9.5L, Hematocrit 31.3L , Mean Corpuscular Volume 78L, Mean Corpuscular Hemoglobin 23.6L, Mean Corpuscular Hemoglobin Concent 30.4L, Red Cell Distribution Width 15.2H, Platelet Count 285, Mean Platelet Volume 6.5, Neutrophils (%) (Auto) 49.6, Lymphocytes (%) (Auto) 35.7, Monocytes (%) (Auto) 11.6H, Eosinophils (%) (Auto) 2.4, Basophils (%) (Auto) 0.7, Sodium Level 141, Potassium Level 3.6, Chloride Level 106, Carbon Dioxide Level 22, Anion Gap 13, Blood Urea Nitrogen 13, Creatinine 0.6, Estimat Glomerular Filtration Rate > 60, Glucose Level 184H, Calcium Level 8.7 Current Medications Medications (Trade) Dose Ordered Sig/Jeannie Route PRN Reason Start Time Stop Time Status Last Admin Dose Admin Acetaminophen (Tylenol) 650 mg Q4H PRN ORAL fever 01/22/17 23:45 02/21/17 23:44 01/23/17 12:00 Al Hydroxide/Mg Hydroxide (Mylanta II) 30 ml Q6H PRN ORAL dyspepsia 01/22/17 23:45 02/21/17 23:44 Benazepril HCl (Lotensin) 10 mg DAILY ORAL 01/23/17 09:00 02/22/17 08:59 01/25/17 09:00 Dextrose (Dextrose 50%) STAT PRN IV Hypoglycemia 01/22/17 23:45 02/21/17 23:44 Diphenhydramine HCl (Benadryl) 25 mg Q6H PRN ORAL Itching/Pruritis 01/22/17 23:45 02/21/17 23:44 Heparin Sodium (Porcine) (Heparin 5000 units/ml) 5,000 units EVERY 12 HOURS SUBQ 01/23/17 09:00 02/22/17 08:59 01/25/17 09:01 Insulin Aspart (NovoLOG) if NPO give half of coverage BEFORE MEALS AND HS SUBQ 01/23/17 12:30 02/22/17 12:29 01/25/17 11:53 Ketorolac Tromethamine 30 mg 30 mg Q6H PRN IV moderate pian 4-6 01/22/17 23:45 01/27/17 23:44 Morphine Sulfate (Morphine Sulfate) 4 mg Q2H PRN IVP For Severe Pain 01/23/17 03:15 01/30/17 03:14 01/24/17 01:18 Nitroglycerin (Ntg) 0.4 mg Q5M X 3 DOSES PRN SL Prn Chest Pain 01/22/17 23:45 02/21/17 23:44 Ondansetron HCl (Zofran) 4 mg Q6H PRN IVP Nausea & Vomiting 01/22/17 23:45 02/21/17 23:44 Piperacillin Sod/ Tazobactam Sod/ Sodium Chloride (Zosyn/Sodium Chloride) 110 ml @ 27.5 mls/hr Q8H IVPB 01/23/17 02:00 01/30/17 01:59 01/25/17 09:02 Polyethylene Glycol (Miralax) 17 gm HSPRN PRN ORAL Constipation 01/22/17 23:45 02/21/17 23:44 Sodium Chloride 1,000 ml @ 50 mls/hr Q20H IV 01/23/17 00:00 02/22/17 00:00 01/24/17 16:59 Temazepam (Restoril) 15 mg HSPRN PRN ORAL Insomnia 01/22/17 23:45 01/29/17 23:44 ANNETTE SCRUGGS Jan 25, 2017 14:18
--- NOTE | 2017-01-25 14:53 | GI Initial Consult Note ---
History of Present Illness General Date patient seen: Jan 25, 2017 Time patient seen: 11:00 Reason for Hospitalization: Abdominal Pain Referring physician: ANNETTE SCRUGGS Reason for Consultation: ABDOMINAL PAIN Present Illness HPI Patient is a 61 female who presented after having increased abdominal pain for one day. Patient was noted to be in the right lower abdomen. Patient prior history of bowel obstructions as well as colostomy and urostomy for cervical cancer. The patient had gradually worsening pain over the past one day. She reported having nausea without vomiting. As reported having intermittent worsening of pain. She reports taking medications for diabetes as well as hypertension. GI Consult. HPI as noted above. GI consulted for abdominal pain. Pt seen on floor A&Ox4 sitting by bedside. HX DM, , Cervical CA in 2003 with radiation and chemo, and multiple abdominal surgeries for SBO. Colostomy noted with no hematochezia or melena. Urostomy noted RLQ - clear yellow. Presents today with abdominal pain r/o SBO. Home Meds Active Scripts Colostomy Bags (ONE-PIECE DRAINABLE POUCH) 1 Each Each, 1 EACH , #14 Prov:Rubén Marsh 05/30/16 Colostomy Washer (Adapt Barrier Ring) 1 Each Miscell, 1 EACH , #14 Prov:Rubén Marsh 05/30/16 Ciprofloxacin Hcl* (CIPROFLOXACIN HCL*) 500 Mg Tab, 500 MG ORAL EVERY 12 HOURS Y , #5 TAB Prov:JOSE MANUEL CASTRO 04/15/14 Reported Medications Ibuprofen* (MOTRIN*) 600 Mg Tablet, 600 MG ORAL FOUR TIMES A DAY, #30 TAB 0 Refills 01/22/17 Hum Insulin Nph/Reg Insulin Hm (HUMULIN 70-30 VIAL) 100 Unit/1 Ml Vial, 0 SUBQ, VIAL 04/13/14 Benazepril Hcl* (BENAZEPRIL HCL*) 10 Mg Tablet, 10 MG ORAL DAILY, TAB 04/13/14 Metformin Hcl* (METFORMIN HCL*) 500 Mg Tablet, 500 MG ORAL TWICE A DAY, TAB 04/13/14 Aspirin* (ASPIR 81*) 81 Mg Tablet.dr, 81 MG ORAL DAILY, TAB 10/21/13 Allergies: Coded Allergies: METOCLOPRAMIDE (Verified Allergy, Unknown, 05/08/11) Patient History History Provided By: Patient, Medical Record PMH Narrative Hx Cardiac Problems: Yes Hx Hypertension: Yes Hx Pacemaker: No Hx Asthma: No Hx COPD: No Hx Diabetes: Yes Hx Cancer: Yes - CERVICAL 2004 Hx Gastrointestinal Problems: Yes - Colostomy Hx Dialysis: No Hx Neurological Problems: No Hx Cerebrovascular Accident: No Hx Seizures: No Review of Systems All Other Systems: negative except mentioned in HPI Physical Exam Vital Signs Date Time Temp Pulse Resp B/P Pulse Ox O2 Delivery O2 Flow Rate FiO2 01/22/17 20:27 99.7 81 22 190/71 99 Room Air Sp02 EP Interpretation: reviewed Labs Laboratory Tests Test 01/25/17 05:30 White Blood Count 4.4 K/UL (4.8-10.8) L Red Blood Count 4.03 M/UL (4.20-5.40) L Hemoglobin 9.5 G/DL (12.0-16.0) L Hematocrit 31.3 % (37.0-47.0) L Mean Corpuscular Volume 78 FL (80-99) L Mean Corpuscular Hemoglobin 23.6 PG (27.0-31.0) L Mean Corpuscular Hemoglobin Concent 30.4 G/DL (32.0-36.0) L Red Cell Distribution Width 15.2 % (11.6-14.8) H Platelet Count 285 K/UL (150-450) Mean Platelet Volume 6.5 FL (6.5-10.1) Neutrophils (%) (Auto) 49.6 % (45.0-75.0) Lymphocytes (%) (Auto) 35.7 % (20.0-45.0) Monocytes (%) (Auto) 11.6 % (1.0-10.0) H Eosinophils (%) (Auto) 2.4 % (0.0-3.0) Basophils (%) (Auto) 0.7 % (0.0-2.0) Sodium Level 141 mEQ/L (135-145) Potassium Level 3.6 mEQ/L (3.4-4.9) Chloride Level 106 mEQ/L (98-107) Carbon Dioxide Level 22 mEQ/L (20-30) Anion Gap 13 (5-15) Blood Urea Nitrogen 13 mg/dL (7-23) Creatinine 0.6 mg/dL (0.5-0.9) Estimat Glomerular Filtration Rate > 60 mL/min (>60) Glucose Level 184 mg/dL (74-106) H Calcium Level 8.7 mg/dL (8.6-10.2) General Appearance: well appearing, no apparent distress, alert Head: normocephalic EENT: PERRL/EOMI, normal ENT inspection Neck: supple Respiratory: no respiratory distress Cardiovascular: normal rate Gastrointestinal: other - colostomy Musculoskeletal: back normal Neurologic: normal inspection, alert, oriented x3, responsive Psychiatric: normal inspection, judgement/insight normal, memory normal Skin: normal inspection, normal color, no rash Lymphatic: normal inspection, no adenopathy GI: Plan Problems: (1) Colostomy care (2) Abdominal pain (3) Diabetes (4) Anemia (5) Small bowel obstruction Plan APCT reviewed >> Development of moderate small bowel dilatation to the level of atonic focalized surgically anastomosed region of partially resected terminal ileum in the right lower quadrant. Considerations include small bowel obstruction versus ileus/ enteritis. KUB reviewed >> No acute findings. Abdominal U/S reviewed >> fatty liver fu surgical recs >> okay to d/c from surgical standpoint colostomy draining well >> colostomy care prn adv to ADA diet H2B monitor H&H, transfuse prn fu labs Discussed with Dr. Garcia. Thank you for referring this patient, we will follow. Teresa Randhawa N.P. Jan 25, 2017 14:53
--- NOTE | 2017-02-02 13:54 | Discharge Summary ---
Discharge Summary Hospital Course Date of Admission Jan 22, 2017 at 22:16 Date of Discharge Jan 25, 2017 at 14:20 Admitting Diagnosis abdominal pain, cervical ca HPI Keisha Haley is a 61 year old female who was admitted on Jan 22, 2017 at 22: 16 for Abdominal Pain/Cervical Cancer Hospital Course dc summary#[id number] Discharge Medications Continued Medications: Aspirin* (Aspir 81*) 81 Mg Tablet.dr 81 MG ORAL DAILY, TAB Benazepril Hcl* (Benazepril Hcl*) 10 Mg Tablet 10 MG ORAL DAILY, TAB Ciprofloxacin Hcl* (Ciprofloxacin Hcl*) 500 Mg Tab 500 MG ORAL EVERY 12 HOURS PRN for 5 Days, #10 TAB (This prescription has been renewed) Hum Insulin Nph/Reg Insulin Hm (Humulin 70-30 Vial) 100 Unit/1 Ml Vial 0 SUBQ, VIAL Ibuprofen* (Motrin*) 600 Mg Tablet 600 MG ORAL FOUR TIMES A DAY, #30 TAB 0 Refills Metformin Hcl* (Metformin Hcl*) 500 Mg Tablet 500 MG ORAL TWICE A DAY, TAB Discharge Condition Upon Discharge: stable Discharge Disposition Patient was discharged to Home () Discharge Diagnoses: Codey (Mary)Jackie NP Feb 02, 2017 13:54
[2017-02-02] MEDS ORDERED: CIPROFLOXACIN500 M2 ORAL (13:55)
--- NOTE | 2017-02-02 17:31 | Discharge Summary 2 SIG ---
DATE OF ADMISSION: 01/22/2017 DATE OF DISCHARGE: 01/25/2017 REASON FOR ADMISSION: The patient is a 61-year-old female with past medical history significant for cervical cancer, diabetes and hypertension presented with increased right lower quadrant abdominal pain for one day. The patient has a prior history of bowel obstruction as well as a colostomy and urostomy for cervical cancer. The patient reported nausea, but without vomiting. CT of the abdomen and pelvis done in the emergency room revealed small bowel obstruction versus ileus/enteritis. Fatty liver. Chronic persistent hydronephrosis. The patient was afebrile. No leukocytosis. Anemic, hemoglobin 11.4 and hematocrit 35.8. Urinalysis with evidence of urinary tract infection. The patient was admitted for further management. ADMITTING DIAGNOSES: 1. Partial small bowel obstruction. 2. Urinary tract infection. 3. Abdominal pain likely secondary to partial small bowel obstruction. 4. Diabetes mellitus. 5. History of cervical cancer. 6. Hypertension. 7. Colostomy. 8. Anemia. HOSPITAL STAY: The patient was admitted. Surgery consult was requested. GI consult was requested. Pain management provided. Initially NPO, intravenous fluids, NG tube to suction and colostomy care. Surgeon seen and evaluated the patient. Per surgeon, the patient had a partial small bowel obstruction possibly exacerbated by dietary indiscretions. Recommended bowel rest, IV antibiotics and repeat again abdominal x-ray in the morning. The patient was on empiric antibiotic. ID followed. Blood sugar was managed with sliding scale of insulin. Blood pressure was managed with JASSON inhibitor and was stable. Electrolytes were replaced as needed. Venous duplex of bilateral lower extremity was negative. DVT prophylaxis provided. Abdominal ultrasound revealed fatty liver. Urine culture positive for E coli. Antibiotic regimen optimized as per ID. Follow up x-ray. Surgery closely followed. The patient was feeling better. No nausea. No vomiting. KUB did not relieve any obstructive pattern. Colostomy was draining well. The patient was started on clear liquid diet. The patient able to tolerate diet. Diet was advanced as tolerated. Hemodynamically stable. Exam benign. No nausea. No vomiting. No fever. No chills. Ambulatory, tolerated diet, and pain control. Surgery cleared the patient for discharge. The patient also seen by GI doctor prior to discharge. GI recommended H2 orestes. Monitor hemoglobin and hematocrit and transfuse as needed prior to discharge. No leukocytosis. Hemoglobin 9.5 and hematocrit 31.3. Electrolytes stable after replacement. The patient was stable for discharge home. DISCHARGE DIAGNOSES: 1. Partial small bowel obstruction, resolved. 2. Abdominal pain secondary to partial small bowel obstruction, resolved. 3. Diabetes mellitus. 4. Hypertension. 5. Anemia of chronic disease. 6. History of cervical cancer. 7. Colostomy. DISCHARGE MEDICATIONS: See medication reconciliation list. Continue Cipro for five more days as outlined in medication reconciliation list. DISCHARGE INSTRUCTIONS: The patient to follow up with the primary medical doctor. Encouraged compliance with medication regimen. Luis M Michelle M.D. I have been assigned to dictate discharge summary on this account and I was not involved in the patient's management. Jackie Goodmad[facility] hospitalShirl[facility] NSooPSoo DR: EFREM JOB#: [id number] CC:
== END 2017-01-25 14:20 | disposition home or self-care (01) | DRG 247 ==
LOC: EMR 21:12 → 4W 22:16 → EDBEDREQ 22:58
DX: K56.60 Unspecified intestinal obstruction (principal); K76.0 Fatty (change of) liver, not elsewhere classified; N39.0 Urinary tract infection, site not specified; I10 Essential (primary) hypertension; E11.9 Type 2 diabetes mellitus without complications; D63.8 Anemia in other chronic diseases classified elsewhere; Z98.890 Other specified postprocedural states; Z85.41 Personal history of malignant neoplasm of cervix uteri; Z88.8 Allergy status to other drugs, medicaments and biological substances; Z43.3 Encounter for attention to colostomy
CPT/HCPCS: 36415; 74000; 74177; 76700; 80048; 80053; 81003; 82150; 82962; 83036; 83690; 83735; 84443; 85007; 85025; 85610; 85730; 87086; 87181; 93970; J1815; J2405

== ENCOUNTER 2017-12-22 00:51 | Inpatient (IN) | payer MEDICAID ==
[~2017-12-22] VITALS: Ht 152.4 cm; Wt 63.5 kg
[~2017-12-22 00:51] MED LIST changes: +IBUPROFEN600 MG ORAL
--- NOTE | 2017-12-22 01:29 | Emergency Room Report ---
History of Present Illness General Chief Complaint: Abdominal Pain Source: Patient Present Illness HPI 62-year-old female history of diabetes, cervical cancer, colostomy bag, as well as suprapubic ostomy, p/w abdominal pain one day. Patient states pain started today, localized to all over the abdomen, non radiating, sharp in nature, intermittent. No relieving or exacerbating factors. Severity is 10 out of 10 Denies nvd. Denies fever, chills. \ Allergies: Coded Allergies: METOCLOPRAMIDE (Verified Allergy, Unknown, 05/08/11) Patient History Past Medical History: see triage record Past Surgical History: none Pertinent Family History: none Last Menstrual Period: NA Reviewed Nursing Documentation: PMH: Agreed; PSxH: Agreed Nursing Documentation-PMH Hx Cardiac Problems: Yes Hx Hypertension: Yes Hx Pacemaker: No Hx Asthma: No Hx COPD: No Hx Diabetes: Yes Hx Cancer: Yes - CERVICAL 2004 Hx Gastrointestinal Problems: Yes - Colostomy Hx Dialysis: No Hx Neurological Problems: No Hx Cerebrovascular Accident: No Hx Seizures: No Review of Systems All Other Systems: negative except mentioned in HPI Physical Exam Vital Signs Date Time Temp Pulse Resp B/P (MAP) Pulse Ox O2 Delivery O2 Flow Rate FiO2 12/22/17 01:06 98.8 72 18 171/71 99 Room Air 98.8 Sp02 EP Interpretation: reviewed, normal General Appearance: alert, GCS 15, moderate distress Head: normocephalic, atraumatic Eyes: bilateral eye normal inspection, bilateral eye PERRL, bilateral eye EOMI ENT: normal ENT inspection, normal pharynx, normal voice, moist mucus membranes Neck: normal inspection, full range of motion, supple Respiratory: normal inspection, lungs clear, normal breath sounds, no respiratory distress, no wheezing, speaking full sentences, chest symmetrical Cardiovascular #1: normal inspection, regular rate, rhythm, normal capillary refill Cardiovascular #2: 2+ radial (R), 2+ radial (L) Gastrointestinal: other - Well-healed vertical surgical scar on abdomen, ostomy bag in place, bladder ostomy as well, diffuse tenderness and voluntary guarding, no rigidity. Musculoskeletal: normal inspection, back normal, normal range of motion, non- tender Neurologic: normal inspection, alert, oriented x3, responsive, motor strength/ tone normal, sensory intact, normal gait, speech normal Psychiatric: normal inspection, judgement/insight normal, memory normal Skin: normal inspection, normal color, no rash, warm/dry, well hydrated, normal turgor Medical Decision Making Diagnostic Impression: Primary Impression: Small bowel obstruction Additional Impression: UTI (lower urinary tract infection) ER Course 8-year-old female with abdominal pain Differential Diagnosis: Gastritis, gastroenteritis, cholecystitis, appendicitis, diverticulitis, SBO, mesenteric ischemia, cardiac, UTI/pyelo Plan: Basic labs, ua, ekg pain control, IVF CT abdopelvis ER course: Patient has remained HD stable during ED stay. noted to have UTI given ceftriaxone states pain lessen with morphine +SBO on CT abdo pelvis Disposition: Patient will be admitted to med surg. Discussed with hospitalist Dr Michelle, also Dr Bernal consulted from surgery Please note that this Emergency Department Report was dictated using [employer] boiler technology software, occasionally this can lead to erroneous entry secondary to interpretation by the dictation equipment Laboratory Tests Test 12/22/17 01:25 White Blood Count 7.6 K/UL (4.8-10.8) Red Blood Count 4.77 M/UL (4.20-5.40) Hemoglobin 11.1 G/DL (12.0-16.0) L Hematocrit 35.2 % (37.0-47.0) L Mean Corpuscular Volume 74 FL (80-99) L Mean Corpuscular Hemoglobin 23.3 PG (27.0-31.0) L Mean Corpuscular Hemoglobin Concent 31.6 G/DL (32.0-36.0) L Red Cell Distribution Width 15.3 % (11.6-14.8) H Platelet Count 311 K/UL (150-450) Mean Platelet Volume 6.5 FL (6.5-10.1) Neutrophils (%) (Auto) 73.4 % (45.0-75.0) Lymphocytes (%) (Auto) 19.4 % (20.0-45.0) L Monocytes (%) (Auto) 5.7 % (1.0-10.0) Eosinophils (%) (Auto) 0.9 % (0.0-3.0) Basophils (%) (Auto) 0.5 % (0.0-2.0) Urine Color Pale yellow Urine Appearance Cloudy Urine pH 9 (4.5-8.0) Urine Specific [place] 1.015 (1.005-1.035) Urine Protein 2+ (NEGATIVE) H Urine Glucose (UA) Negative (NEGATIVE) Urine Ketones Negative (NEGATIVE) Urine Occult Blood 4+ (NEGATIVE) H Urine Nitrite Negative (NEGATIVE) Urine Bilirubin Negative (NEGATIVE) Urine Urobilinogen Normal MG/DL (0.0-1.0) Urine Leukocyte Esterase 3+ (NEGATIVE) H Urine RBC 30-40 /HPF (0 - 2) H Urine WBC Tntc /HPF (0 - 2) H Urine Squamous Epithelial Cells Few /LPF (NONE/OCC) Urine Bacteria Many /HPF (NONE) H Sodium Level 140 MMOL/L (136-145) Potassium Level 3.7 MMOL/L (3.5-5.1) Chloride Level 103 MMOL/L (98-107) Carbon Dioxide Level 28 MMOL/L (21-32) Anion Gap 9 mmol/L (5-15) Blood Urea Nitrogen 8 mg/dL (7-18) Creatinine 0.7 MG/DL (0.55-1.30) Estimate Glomerular Filtration Rate > 60 mL/min (>60) Glucose Level 152 MG/DL (74-106) H Lactic Acid Level 1.20 mmol/L (0.66-2.22) Calcium Level 9.0 MG/DL (8.5-10.1) Total Bilirubin 0.3 MG/DL (0.2-1.0) Aspartate Amino Transferase (AST) 17 U/L (15-37) Alanine Aminotransferase (ALT) 19 U/L (12-78) Alkaline Phosphatase 83 U/L (46-116) Total Protein 7.7 G/DL (6.4-8.2) Albumin 3.6 G/DL (3.4-5.0) Globulin 4.1 g/dL Albumin/Globulin Ratio 0.9 (1.0-2.7) L Lipase 57 U/L (73-393) L CT/MRI/US Diagnostic Results CT/MRI/US Diagnostic Results : Imaging Test Ordered: CT ABDO PELVIS Impression CT ABDOMEN & PELVIS With Contrast: Findings: Lung bases are clear. Heart is not enlarged. Liver, gallbladder, spleen, pancreas, and adrenals are unremarkable. Symmetric nephrograms. Bilateral hydroureteronephrosis down to an ileal conduit. No stones. Once again seen is right lower quadrant small bowel dilatation, which persists through the level of the right lower quadrant ostomy. Whereas previously the bowel was fluid-filled, there is now intraluminal fecal material, suggesting progression of a long-standing process. Decompressed small bowel loops are also present. Once again seen is a fluid-filled ileal conduit down to the level of the right lower quadrant ostomy, which may represent obstruction. Small stones persist. Large stone seen on the prior scan has passed. No change in the appearance of the right lower quadrant small bowel anastomosis. Presacral edema is again seen. Left lower quadrant colostomy is unchanged. No parastomal hernia. Multiple small ventral hernias containing segments of obstructed and nonobstructed small bowel. No ascites or free air. Impression: Small bowel obstruction. 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 Last Vital Signs Date Time Temp Pulse Resp B/P (MAP) Pulse Ox O2 Delivery O2 Flow Rate FiO2 12/22/17 01:06 98.8 72 18 171/71 99 Room Air 98.8 Disposition: ELOPED Condition: Serious Scripts Cephalexin* (KEFLEX*) 500 Mg Capsule 500 MG ORAL EVERY 6 HOURS for 7 Days, #28 CAP Prov: Valentina Marshall M.D. 12/22/17 Valentina Marshall M.D. December 22, 2017 01:29
[2017-12-22] MEDS ORDERED: Morphine Sulfate 4mg/ml Inj ONE (01:32)
[2017-12-22 01:41] LABS: BASOPHILS % (AUTO) 0.5 % (0.0-2.0); EOSINOPHILS % (AUTO) 0.9 % (0.0-3.0); HEMATOCRIT 35.2 % (37.0-47.0); HEMOGLOBIN 11.1 G/DL (12.0-16.0); LYMPHOCYTES % (AUTO) 19.4 % (20.0-45.0); MEAN CORPUSCULAR VOLUME 74 FL (80-99); MONOCYTES % (AUTO) 5.7 % (1.0-10.0); NEUTROPHILS % (AUTO) 73.4 % (45.0-75.0); PLATELET COUNT 311 K/UL (150-450); RED BLOOD COUNT 4.77 M/UL (4.20-5.40); RED CELL DISTRIBUTION WIDTH 15.3 % (11.6-14.8); WHITE BLOOD COUNT 7.6 K/UL (4.8-10.8)
[2017-12-22 01:43] LABS: APPEARANCE,URINE CLOUDY; BILIRUBIN, URINE NEGATIVE (NEGATIVE); COLOR,URINE PALE YELLOW; GLUCOSE, URINE (UA) NEGATIVE (NEGATIVE); KETONES,URINE NEGATIVE (NEGATIVE); LEUKOCYTE ESTERASE ,URINE 3+ (NEGATIVE); NITRITE,URINE NEGATIVE (NEGATIVE); PH,URINE 9 (4.5-8.0); PROTEIN,URINE 2+ (NEGATIVE); UROBILINOGEN,URINE NORMAL MG/DL (0.0-1.0)
[2017-12-22] MEDS ORDERED: Morphine Sulfate 4mg/ml Inj IVP ONE (01:45)
[2017-12-22] MEDS ORDERED: Isovue-300 100ml vial INJ PRN (01:45)
[2017-12-22 01:54] LABS: ANION GAP 9 mmol/L (5-15); BLOOD UREA NITROGEN 8 mg/dL (7-18); CARBON DIOXIDE 28 MMOL/L (21-32); CHLORIDE 103 MMOL/L (98-107); CREATININE 0.7 MG/DL (0.55-1.30); POTASSIUM 3.7 MMOL/L (3.5-5.1); SODIUM 140 MMOL/L (136-145)
[2017-12-22 02:01] LABS: ALANINE AMINOTRANSFERASE 19 U/L (12-78); ALBUMIN 3.6 G/DL (3.4-5.0); ALBUMIN/GLOBULIN RATIO 0.9 (1.0-2.7); ALKALINE PHOSPHATASE 83 U/L (46-116); ASPARTATE AMINO TRANSFERASE 17 U/L (15-37); BILIRUBIN,TOTAL 0.3 MG/DL (0.2-1.0)
[2017-12-22] MEDS ORDERED: cefTRIAXone 1 GM in NS 55 ML IVPB ONE (02:15)
[2017-12-22 02:55] VITALS: BP 151/65
[2017-12-22] MEDS ORDERED: CEPHALEXIN500 MG ORAL (02:59)
[2017-12-22] MEDS ORDERED: HYDROMORPHONE HC4 M1 PO (04:37)
[2017-12-22 05:16] VITALS: BP 129/64
[2017-12-22 08:00] VITALS: BP 126/65
[2017-12-22] MEDS: D5 1/2NS 1,000 ML IV SCH ×2 (08:09→20:21)
[2017-12-22] MEDS: Morphine Sulfate 4mg/ml Inj IVP PRN ×3 (08:09→20:13)
[2017-12-22] MEDS: Heparin 5000 units/ml inj SUBQ SCH ×2 (08:19→20:17)
--- NOTE | 2017-12-22 09:11 | Diagnostic Imaging Report ---
Indication: Abdominal pain Technique: Continuous helical transaxial imaging of the abdomen and pelvis was obtained from the lung bases to the pubic symphysis during intravenous contrast administration. Coronal 2-D reformats were also obtained. Study obtained in a Siemens sensation [address] Automatic Exposure Control was utilized. Total Dose length Product (DLP): 625.[address] Dose Index Volume (CTDIvol): 13.68 mGy Comparison: 01/22/2017 Findings: Lung bases are clear. The patient has had prior radical cystectomy and ureteral diversion surgery with the ileal conduit. The ileal conduit is persistently dilated. Some degree of impediment to outflow or obstruction of the conduit is not excluded. Please correlate clinically. The ileal conduit appears to show an abrupt caliber change right at the site of the right lower quadrant ostomy opening. There is also mild, chronic hydronephrosis mainly at the levels of the renal pelvis. Small intraluminal stones noted within the ileal conduit. Dilatation of the ileal conduit may be associated with presence of a parastomal hernia which contains small bowel. The small bowel associated with the parastomal hernia show signs of stasis with chronic dilatation and fecalization. This is also the loop of bowel that is associated with anastomotic sutures and it is likely that the chronic dilatation and a postsurgical phenomenon. These findings more or less unchanged from the last 2 CT examinations dating back to 10/10/2015. Doubt this is obstructive. There is also a left lower quadrant diverting colostomy demonstrated. Small stones demonstrated within the ileal conduit. Minimal bilateral hydronephrosis noted, all chronic. Small amount of the presacral fluid or edema noted. Degenerative changes of the lumbar spine are present. The lung bases are clear. Gallbladder, liver and spleen, pancreas appear unremarkable. IMPRESSION: Mild dilatation of the ileal conduit which appears to be at the ostomy site in the right lower quadrant. This is a chronic phenomenon and has been present on multiple prior studies. That said, with still consider the possibility of a partial impediment to outflow or obstruction. Please correlate clinically with regard to output of the urostomy. Small stones noted within the ileostomy conduit. Chronic dilatation of the distal small bowel loops in an area of anastomosis and surgery. Fecalization indicative of stasis. This is a chronic phenomenon likely related to surgery and has been present on multiple prior studies dating back to 2015. Doubt obstruction. The CT scanner at [facility] is accredited by the [employer] and the scans are performed using dose optimization techniques as appropriate to a performed exam including Automatic Exposure control.
[2017-12-22 12:00] VITALS: BP 156/70
--- NOTE | 2017-12-22 14:45 | Consultation ---
History of Present Illness General Date patient seen: December 22, 2017 Chief Complaint: Abdominal Pain Reason for Consultation: abdominal pain Present Illness HPI 62-year-old female history of diabetes, cervical cancer, colostomy bag, as well as suprapubic ostomy presented with abdominal pain x1day. Patient states pain started just prior to admission and localized to all over the abdomen, non radiating, sharp in nature, intermittent. No relieving or exacerbating factors. Severity is 10 out of 10. Denies fever, chills. Has had history of such episodes intermittently for some time now. CT ordered and reviewed. Multiple findings but stable as prior. surgery called to evaluate for abdominal pain Allergies: Coded Allergies: METOCLOPRAMIDE (Verified Allergy, Unknown, 05/08/11) Medication History Scheduled Aspirin* (Aspir 81*), 81 MG ORAL DAILY, (Reported) Benazepril Hcl* (Benazepril Hcl*), 10 MG ORAL DAILY, (Reported) Cephalexin* (Keflex*), 500 MG ORAL EVERY 6 HOURS Hydromorphone Hcl (Hydromorphone Hcl), 4 MG PO Q4HR, (Reported) Ibuprofen* (Motrin*), 600 MG ORAL FOUR TIMES A DAY, (Reported) Metformin Hcl* (Metformin Hcl*), 500 MG ORAL TWICE A DAY, (Reported) Scheduled PRN Ciprofloxacin Hcl* (Ciprofloxacin Hcl*), 500 MG ORAL EVERY 12 HOURS PRN Miscellaneous Medications Hum Insulin Nph/Reg Insulin Hm (Humulin 70-30 Vial), 0 SUBQ, (Reported) Durable Medical Equipment Colostomy Bags (One-Piece Drainable Pouch), 1 EACH [facility], (DME) Colostomy Washer (Adapt Barrier Ring), 1 EACH [facility], (DME) Patient History History Provided By: Patient, Medical Record, PMD Healthcare decision maker gray Haley Resuscitation status Full Code Advanced Directive on File Past Medical/Surgical History Past Medical/Surgical History: (1) UTI (lower urinary tract infection) (2) UTI (lower urinary tract infection) (3) Small bowel obstruction (4) Sepsis (5) colitis (6) Anemia (7) Diabetes (8) Cervical cancer (9) HTN (hypertension) (10) Colostomy care (11) Small bowel obstruction (12) Abdominal pain Review of Systems All Other Systems: negative except mentioned in HPI Physical Exam General Appearance: no apparent distress Lines, tubes and drains: peripheral Neck: normal inspection Respiratory/Chest: normal breath sounds, no respiratory distress, no accessory muscle use Cardiovascular/Chest: normal peripheral pulses Abdomen: normal bowel sounds, soft, no organomegaly, no mass, tender, other - ostomy Left / urostomy Right Extremities: normal range of motion Skin Exam: normal pigmentation Neurologic: alert Last 24 Hour Vital Signs Date Time Temp Pulse Resp B/P (MAP) Pulse Ox O2 Delivery O2 Flow Rate FiO2 12/22/17 14:35 98.2 12/22/17 12:00 98.2 68 20 156/70 98 98.2 12/22/17 08:39 97.1 12/22/17 08:09 97.1 12/22/17 08:00 97.7 66 21 126/65 100 97.7 12/22/17 05:16 97.1 62 18 129/64 98 Room Air 97.1 12/22/17 04:40 98.8 65 18 151/65 98 Room Air 209.8 12/22/17 02:55 65 18 151/65 98 Room Air 12/22/17 01:57 98.8 12/22/17 01:06 98.8 72 18 171/71 99 Room Air 98.8 Intake and Output 12/21/17 12/22/17 19:00 07:00 Output Total 60 ml Balance -60 ml Output Urine Total 60 ml # Voids 1 Laboratory Tests Test 12/22/17 01:25 White Blood Count 7.6 K/UL (4.8-10.8) Red Blood Count 4.77 M/UL (4.20-5.40) Hemoglobin 11.1 G/DL (12.0-16.0) L Hematocrit 35.2 % (37.0-47.0) L Mean Corpuscular Volume 74 FL (80-99) L Mean Corpuscular Hemoglobin 23.3 PG (27.0-31.0) L Mean Corpuscular Hemoglobin Concent 31.6 G/DL (32.0-36.0) L Red Cell Distribution Width 15.3 % (11.6-14.8) H Platelet Count 311 K/UL (150-450) Mean Platelet Volume 6.5 FL (6.5-10.1) Neutrophils (%) (Auto) 73.4 % (45.0-75.0) Lymphocytes (%) (Auto) 19.4 % (20.0-45.0) L Monocytes (%) (Auto) 5.7 % (1.0-10.0) Eosinophils (%) (Auto) 0.9 % (0.0-3.0) Basophils (%) (Auto) 0.5 % (0.0-2.0) Urine Color Pale yellow Urine Appearance Cloudy Urine pH 9 (4.5-8.0) Urine Specific [place] 1.015 (1.005-1.035) Urine Protein 2+ (NEGATIVE) H Urine Glucose (UA) Negative (NEGATIVE) Urine Ketones Negative (NEGATIVE) Urine Occult Blood 4+ (NEGATIVE) H Urine Nitrite Negative (NEGATIVE) Urine Bilirubin Negative (NEGATIVE) Urine Urobilinogen Normal MG/DL (0.0-1.0) Urine Leukocyte Esterase 3+ (NEGATIVE) H Urine RBC 30-40 /HPF (0 - 2) H Urine WBC Tntc /HPF (0 - 2) H Urine Squamous Epithelial Cells Few /LPF (NONE/OCC) Urine Bacteria Many /HPF (NONE) H Sodium Level 140 MMOL/L (136-145) Potassium Level 3.7 MMOL/L (3.5-5.1) Chloride Level 103 MMOL/L (98-107) Carbon Dioxide Level 28 MMOL/L (21-32) Anion Gap 9 mmol/L (5-15) Blood Urea Nitrogen 8 mg/dL (7-18) Creatinine 0.7 MG/DL (0.55-1.30) Estimat Glomerular Filtration Rate > 60 mL/min (>60) Glucose Level 152 MG/DL (74-106) H Lactic Acid Level 1.20 mmol/L (0.66-2.22) Calcium Level 9.0 MG/DL (8.5-10.1) Total Bilirubin 0.3 MG/DL (0.2-1.0) Aspartate Amino Transf (AST/SGOT) 17 U/L (15-37) Alanine Aminotransferase (ALT/SGPT) 19 U/L (12-78) Alkaline Phosphatase 83 U/L (46-116) Total Protein 7.7 G/DL (6.4-8.2) Albumin 3.6 G/DL (3.4-5.0) Globulin 4.1 g/dL Albumin/Globulin Ratio 0.9 (1.0-2.7) L Lipase 57 U/L (73-393) L Height (Feet): 5 Height (Inches): 0.00 Weight (Pounds): 140 Medications Current Medications Medications (Trade) Dose Ordered Sig/Jeannie Route PRN Reason Start Time Stop Time Status Last Admin Dose Admin Dextrose/Sodium Chloride 1,000 ml @ 75 mls/hr [id number] IV 12/22/17 08:00 01/21/18 07:59 12/22/17 08:09 Heparin Sodium (Porcine) (Heparin 5000 units/ml) 5,000 units EVERY 12 HOURS SUBQ 12/22/17 09:00 01/21/18 08:59 12/22/17 08:19 Iopamidol (Isovue-300 100ml) 100 ml NOW PRN INJ Radiology Procedure 12/22/17 01:45 Morphine Sulfate (Morphine Sulfate) 4 mg Q4H PRN IVP For Pain 12/22/17 08:00 12/29/17 07:59 12/22/17 14:35 Assessment/Plan Problem List: (1) Small bowel obstruction Assessment & Plan: unlikely to have SBO as ostomy functional and CT findings chronic. likely has some mild ileus or chronic slow bowel transit given CT findings but this is chronic issue. abdominal pain likely from UTI. exam benign. -okay for diet from surgical standpoint -abx for uti -treat conservatively. thank you for this consultation. will follow with recs. Status: stable Andrea Bernal December 22, 2017 14:45
--- NOTE | 2017-12-22 15:04 | Consultation ---
History of Present Illness General Date patient seen: December 22, 2017 Chief Complaint: Abdominal Pain Reason for Consultation: abdominal pain Present Illness HPI 62-year-old female history of diabetes, cervical cancer, colostomy bag, as well as suprapubic ostomy, p/w abdominal pain one day. pain started today, localized to all over the abdomen, non radiating, sharp in nature, intermittent. No relieving or exacerbating factors. Severity is 10 out of 10 Allergies: Coded Allergies: METOCLOPRAMIDE (Verified Allergy, Unknown, 05/08/11) Medication History Scheduled Aspirin* (Aspir 81*), 81 MG ORAL DAILY, (Reported) Benazepril Hcl* (Benazepril Hcl*), 10 MG ORAL DAILY, (Reported) Cephalexin* (Keflex*), 500 MG ORAL EVERY 6 HOURS Hydromorphone Hcl (Hydromorphone Hcl), 4 MG PO Q4HR, (Reported) Ibuprofen* (Motrin*), 600 MG ORAL FOUR TIMES A DAY, (Reported) Metformin Hcl* (Metformin Hcl*), 500 MG ORAL TWICE A DAY, (Reported) Scheduled PRN Ciprofloxacin Hcl* (Ciprofloxacin Hcl*), 500 MG ORAL EVERY 12 HOURS PRN Miscellaneous Medications Hum Insulin Nph/Reg Insulin Hm (Humulin 70-30 Vial), 0 SUBQ, (Reported) Durable Medical Equipment Colostomy Bags (One-Piece Drainable Pouch), 1 EACH [facility], (DME) Colostomy Washer (Adapt Barrier Ring), 1 EACH [facility], (DME) Patient History Healthcare decision maker gray Haley Resuscitation status Full Code Advanced Directive on File Past Medical/Surgical History Past Medical/Surgical History: (1) Colostomy care (2) Cervical cancer Review of Systems All Other Systems: negative except mentioned in HPI Physical Exam General Appearance: WD/WN Lines, tubes and drains: peripheral Neck: non-tender Respiratory/Chest: chest wall non-tender, lungs clear Breasts: no masses Cardiovascular/Chest: normal peripheral pulses Abdomen: normal bowel sounds Genitourinary/Rectal: normal rectal exam Last 24 Hour Vital Signs Date Time Temp Pulse Resp B/P (MAP) Pulse Ox O2 Delivery O2 Flow Rate FiO2 12/22/17 14:35 98.2 12/22/17 12:00 98.2 68 20 156/70 98 98.2 12/22/17 08:39 97.1 12/22/17 08:09 97.1 12/22/17 08:00 97.7 66 21 126/65 100 97.7 12/22/17 05:16 97.1 62 18 129/64 98 Room Air 97.1 12/22/17 04:40 98.8 65 18 151/65 98 Room Air 209.8 12/22/17 02:55 65 18 151/65 98 Room Air 12/22/17 01:57 98.8 12/22/17 01:06 98.8 72 18 171/71 99 Room Air 98.8 Intake and Output 12/21/17 12/22/17 19:00 07:00 Output Total 60 ml Balance -60 ml Output Urine Total 60 ml # Voids 1 Laboratory Tests Test 12/22/17 01:25 White Blood Count 7.6 K/UL (4.8-10.8) Red Blood Count 4.77 M/UL (4.20-5.40) Hemoglobin 11.1 G/DL (12.0-16.0) L Hematocrit 35.2 % (37.0-47.0) L Mean Corpuscular Volume 74 FL (80-99) L Mean Corpuscular Hemoglobin 23.3 PG (27.0-31.0) L Mean Corpuscular Hemoglobin Concent 31.6 G/DL (32.0-36.0) L Red Cell Distribution Width 15.3 % (11.6-14.8) H Platelet Count 311 K/UL (150-450) Mean Platelet Volume 6.5 FL (6.5-10.1) Neutrophils (%) (Auto) 73.4 % (45.0-75.0) Lymphocytes (%) (Auto) 19.4 % (20.0-45.0) L Monocytes (%) (Auto) 5.7 % (1.0-10.0) Eosinophils (%) (Auto) 0.9 % (0.0-3.0) Basophils (%) (Auto) 0.5 % (0.0-2.0) Urine Color Pale yellow Urine Appearance Cloudy Urine pH 9 (4.5-8.0) Urine Specific [place] 1.015 (1.005-1.035) Urine Protein 2+ (NEGATIVE) H Urine Glucose (UA) Negative (NEGATIVE) Urine Ketones Negative (NEGATIVE) Urine Occult Blood 4+ (NEGATIVE) H Urine Nitrite Negative (NEGATIVE) Urine Bilirubin Negative (NEGATIVE) Urine Urobilinogen Normal MG/DL (0.0-1.0) Urine Leukocyte Esterase 3+ (NEGATIVE) H Urine RBC 30-40 /HPF (0 - 2) H Urine WBC Tntc /HPF (0 - 2) H Urine Squamous Epithelial Cells Few /LPF (NONE/OCC) Urine Bacteria Many /HPF (NONE) H Sodium Level 140 MMOL/L (136-145) Potassium Level 3.7 MMOL/L (3.5-5.1) Chloride Level 103 MMOL/L (98-107) Carbon Dioxide Level 28 MMOL/L (21-32) Anion Gap 9 mmol/L (5-15) Blood Urea Nitrogen 8 mg/dL (7-18) Creatinine 0.7 MG/DL (0.55-1.30) Estimat Glomerular Filtration Rate > 60 mL/min (>60) Glucose Level 152 MG/DL (74-106) H Lactic Acid Level 1.20 mmol/L (0.66-2.22) Calcium Level 9.0 MG/DL (8.5-10.1) Total Bilirubin 0.3 MG/DL (0.2-1.0) Aspartate Amino Transf (AST/SGOT) 17 U/L (15-37) Alanine Aminotransferase (ALT/SGPT) 19 U/L (12-78) Alkaline Phosphatase 83 U/L (46-116) Total Protein 7.7 G/DL (6.4-8.2) Albumin 3.6 G/DL (3.4-5.0) Globulin 4.1 g/dL Albumin/Globulin Ratio 0.9 (1.0-2.7) L Lipase 57 U/L (73-393) L Height (Feet): 5 Height (Inches): 0.00 Weight (Pounds): 140 Medications Current Medications Medications (Trade) Dose Ordered Sig/Jeannie Route PRN Reason Start Time Stop Time Status Last Admin Dose Admin Dextrose/Sodium Chloride 1,000 ml @ 75 mls/hr [id number] IV 12/22/17 08:00 01/21/18 07:59 12/22/17 08:09 Heparin Sodium (Porcine) (Heparin 5000 units/ml) 5,000 units EVERY 12 HOURS SUBQ 12/22/17 09:00 01/21/18 08:59 12/22/17 08:19 Iopamidol (Isovue-300 100ml) 100 ml NOW PRN INJ Radiology Procedure 12/22/17 01:45 Morphine Sulfate (Morphine Sulfate) 4 mg Q4H PRN IVP For Pain 12/22/17 08:00 12/29/17 07:59 12/22/17 14:35 Assessment/Plan Problem List: (1) Abdominal pain ICD Codes: R10.9 - Abdominal pain SNOMED: 64121660 (2) Small bowel obstruction ICD Codes: K56.69 - Other intestinal obstruction SNOMED: 458857191 (3) Colostomy care ICD Codes: Z43.3 - Encounter for attention to colostomy SNOMED: 887943290 (4) Diabetes ICD Codes: E11.9 - Type 2 diabetes mellitus without complications SNOMED: 83295892 Assessment/Plan GI and surgery evaluation IV fluids check electrolytes sliding scale Luis M Michelle MD December 22, 2017 15:04
--- NOTE | 2017-12-22 15:53 | Cardiology Report ---
APPROVED REPORT EKG Measurement Heart [id number] Normal sinus rhythm Nonspecific ST abnormality Abnormal ECG
[2017-12-22 16:00] VITALS: BP 121/59
[2017-12-22 19:47] VITALS: BP 134/69
--- NOTE | 2017-12-22 19:48 | History & Physical ---
History and Physical History & Physicial Dictated for Int Med Dr Murillo no. [id number]. Johnathon Richard MD December 22, 2017 19:48
[2017-12-22] MEDS: NovoLOG Insulin Flexpen SUBQ SCH (22:01)
[2017-12-22] MEDS ORDERED: cefTRIAXone 1 GM in D5W 110 ML IVPB SCH (23:00)
[2017-12-22] MEDS ORDERED: cefTRIAXone 1 GM in D5W 55 ML IVPB SCH (23:00)
[2017-12-23] VITALS: BP 138/68
--- NOTE | 2017-12-23 02:30 | History and Physical Report ---
DATE OF ADMISSION: 12/22/2017 CHIEF COMPLAINT: The patient is a 62-year-old female, who presents with chief complaint of abdominal pain. HISTORY OF PRESENT ILLNESS: Began yesterday, 12/21/2017. The patient began to experience abdominal pain. Abdominal pain is generalized. The patient states it comes and goes. The patient presented to [facility] emergency room. The patient has a history of colostomy and ostomy. The patient is admitted for abdominal pain to rule out obstruction. PAST MEDICAL HISTORY: Significant for: 1. Diabetes type 2. 2. Hypertension. 3. History of cervical cancer, status post chemotherapy and radiation therapy in 2003. PAST SURGICAL HISTORY: Significant for: 1. Colostomy in 2005. 2. Ostomy in 2006. 3. section x1. CURRENT MEDICATIONS: 1. Aspirin 81 mg one tablet p.o. daily. 2. Benazepril 10 mg p.o. daily. 3. 70/30 insulin subcutaneously at bedtime. 4. Metformin 500 mg p.o. twice daily. ALLERGIES: To Reglan. SOCIAL HISTORY: The patient is . The patient is disabled. The patient denies tobacco or alcohol use. REVIEW OF SYSTEMS: CONSTITUTIONAL: The patient denies weight loss or weight gain. The patient denies fevers or chills. HEENT: The patient denies ear or throat pain. The patient denies headache. CARDIOVASCULAR: The patient denies palpitations or chest pain. CHEST: The patient denies wheeze or shortness of breath. ABDOMEN: The patient complains of generalized abdominal pain as above. The patient denies nausea, vomiting, diarrhea, or constipation. GENITOURINARY: The patient denies dysuria or increased frequency of urination. NEUROMUSCULAR: The patient denies seizures or generalized weakness. PHYSICAL EXAMINATION: GENERAL: The patient is a well-developed and well-nourished female, in no apparent distress. VITAL SIGNS: Temperature 97.7 degrees, respirations 21, pulse 66, and blood pressure 126/65. HEENT: Eyes, pupils are equal and responsive to light and accommodation. Extraocular movements are intact. NECK: Supple without lymphadenopathy. CHEST: Lungs are clear to auscultation bilaterally without wheezes or rales. CARDIOVASCULAR: Regular rhythm and rate. S1 and S2 are normal without murmurs, rubs, or gallops. ABDOMEN: Soft, nontender, and nondistended with positive bowel sounds. There is pain to palpation in all four quadrants. There is no rebound or guarding noted. EXTREMITIES: Negative for clubbing, cyanosis, or edema. RECTAL/GENITAL: Refused. NEUROLOGIC: Cranial nerves II through XII are grossly intact without focal deficits. Motor strength is 5/5 bilaterally. Deep tendon reflexes are 2+ plantar. LABORATORY STUDIES: WBC 7.6, hemoglobin 11.1, hematocrit 35.2, and platelets 311,000. Sodium 140, potassium 3.7, chloride 103, CO2 28, BUN 8, creatinine 0.7, and glucose 152. Urinalysis showed 4+ blood, 3+ leukocyte esterase, 30 to 40 rbc's with wbc too numerous to count. A CT scan of the abdomen demonstrates acute obstruction. ASSESSMENT: This is a 62-year-old female with: 1. Abdominal pain. 2. Urinary tract infection. 3. Diabetes type 2. 4. Hypertension. 5. Colostomy in situ. 6. Ostomy in situ. TREATMENT: 1. Abdominal pain. A General Surgery consultation has been obtained with Dr. Bernal. Abdominal pain seems to be secondary to urinary tract infection and not obstruction. We will follow recommendation of General Surgery. 2. Urinary tract infection. The patient has been placed empirically on ceftriaxone. Urine culture is pending. 3. Hypertension. Continue benazepril as above. 4. Diabetes type 2. The patient has been placed on a regular insulin sliding scale. Johnathon Richard M.D. DR: BRIAN JOB#: [id number] CC:
[2017-12-23 04:00] VITALS: BP 136/66
[2017-12-23] MEDS: NovoLOG Insulin Flexpen SUBQ SCH ×2 (05:50→12:15)
[2017-12-23 08:18] LABS: ANION GAP 9 mmol/L (5-15); BLOOD UREA NITROGEN 6 mg/dL (7-18); CALCIUM 8.6 MG/DL (8.5-10.1); CARBON DIOXIDE 25 MMOL/L (21-32); CHLORIDE 105 MMOL/L (98-107); CREATININE 0.6 MG/DL (0.55-1.30); POTASSIUM 3.5 MMOL/L (3.5-5.1); SODIUM 139 MMOL/L (136-145)
[2017-12-23 08:19] LABS: BASOPHILS % (AUTO) 0.7 % (0.0-2.0); EOSINOPHILS % (AUTO) 2.7 % (0.0-3.0); HEMATOCRIT 31.5 % (37.0-47.0); LYMPHOCYTES % (AUTO) 27.1 % (20.0-45.0); MEAN CORPUSCULAR VOLUME 75 FL (80-99); MONOCYTES % (AUTO) 11.2 % (1.0-10.0); NEUTROPHILS % (AUTO) 58.4 % (45.0-75.0); PLATELET COUNT 253 K/UL (150-450); RED BLOOD COUNT 4.22 M/UL (4.20-5.40); WHITE BLOOD COUNT 3.8 K/UL (4.8-10.8)
[2017-12-23 08:48] VITALS: BP 140/76
[2017-12-23] MEDS: Heparin 5000 units/ml inj SUBQ SCH (09:04)
[2017-12-23] MEDS: D5 1/2NS 1,000 ML IV SCH (11:03)
[2017-12-23 11:44] VITALS: BP 142/78
[2017-12-23] MEDS: Morphine Sulfate 4mg/ml Inj IVP PRN (12:10)
--- NOTE | 2017-12-23 14:31 | Pulmonology Progress Note ---
Assessment/Plan Problems: (1) Abdominal pain (2) Small bowel obstruction (3) Colostomy care (4) Diabetes Subjective Allergies: Coded Allergies: METOCLOPRAMIDE (Verified Allergy, Unknown, 05/08/11) Objective Last 24 Hour Vital Signs Date Time Temp Pulse Resp B/P (MAP) Pulse Ox O2 Delivery O2 Flow Rate FiO2 12/23/17 12:40 98.1 12/23/17 12:10 98.1 12/23/17 11:44 98.1 65 18 142/78 98 98.1 12/23/17 08:48 98.1 64 18 140/76 98 98.1 12/23/17 04:00 98.1 61 18 136/66 97 98.1 12/23/17 00:00 98.2 62 18 138/68 97 98.2 12/22/17 19:47 98.1 65 18 134/69 98 98.1 12/22/17 16:00 98.4 67 19 121/59 97 98.4 12/22/17 14:35 98.2 Intake and Output 12/22/17 12/23/17 19:00 07:00 Intake Total 375 ml 525 ml Balance 375 ml 525 ml Intake IV Total 375 ml 525 ml # Voids 3 Microbiology Date/Time Source Procedure Growth Status 12/22/17 01:25 Urine,Clean Catch Urine Culture - Preliminary Gram Negative Bacillus 1 Resulted Laboratory Tests 12/23/17 07:12: White Blood Count 3.8L, Red Blood Count 4.22, Hemoglobin 10.0L, Hematocrit 31.5L , Mean Corpuscular Volume 75L, Mean Corpuscular Hemoglobin 23.8L, Mean Corpuscular Hemoglobin Concent 31.9L, Red Cell Distribution Width 15.0H, Platelet Count 253, Mean Platelet Volume 7.3, Neutrophils (%) (Auto) 58.4, Lymphocytes (%) (Auto) 27.1, Monocytes (%) (Auto) 11.2H, Eosinophils (%) (Auto) 2.7, Basophils (%) (Auto) 0.7, Sodium Level 139, Potassium Level 3.5, Chloride Level 105, Carbon Dioxide Level 25, Anion Gap 9, Blood Urea Nitrogen 6L, Creatinine 0.6, Estimat Glomerular Filtration Rate > 60, Glucose Level 159H, Calcium Level 8.6 Current Medications Medications (Trade) Dose Ordered Sig/Jeannie Route PRN Reason Start Time Stop Time Status Last Admin Dose Admin Ceftriaxone Sodium 1 gm/ Dextrose 110 ml @ 220 mls/hr Q24H IVPB 12/22/17 23:00 12/29/17 22:59 12/22/17 22:02 Dextrose (Dextrose 50%) 25 ml STAT PRN IV Hypoglycemia 12/22/17 19:45 01/21/18 19:44 Dextrose (Dextrose 50%) 50 ml STAT PRN IV Hypoglycemia 12/22/17 19:45 01/21/18 19:44 Dextrose/Sodium Chloride 1,000 ml @ 75 mls/hr [id number] IV 12/22/17 08:00 01/21/18 07:59 12/23/17 11:03 Heparin Sodium (Porcine) (Heparin 5000 units/ml) 5,000 units EVERY 12 HOURS SUBQ 12/22/17 09:00 01/21/18 08:59 12/23/17 09:04 Insulin Aspart (NovoLOG) BEFORE MEALS AND HS SUBQ 12/22/17 21:00 01/21/18 20:59 12/23/17 12:15 Iopamidol (Isovue-300 100ml) 100 ml NOW PRN INJ Radiology Procedure 12/22/17 01:45 Morphine Sulfate (Morphine Sulfate) 4 mg Q4H PRN IVP For Pain 12/22/17 08:00 12/29/17 07:59 12/23/17 12:10 Luis M Michelle MD December 23, 2017 14:31
--- NOTE | 2017-12-23 14:36 | Consultation ---
Consult Note Consult Note Job ID # [id number] Torrey Caballero MD December 23, 2017 14:36
--- NOTE | 2017-12-23 15:30 | General Surgery Progress Note ---
General Surgery-Progress Note Subjective Symptoms: improved, pain absent, tolerating diet, other - ostomy functional Objective Last 24 Hour Vital Signs Date Time Temp Pulse Resp B/P (MAP) Pulse Ox O2 Delivery O2 Flow Rate FiO2 12/23/17 12:40 98.1 12/23/17 12:10 98.1 12/23/17 11:44 98.1 65 18 142/78 98 98.1 12/23/17 08:48 98.1 64 18 140/76 98 98.1 12/23/17 04:00 98.1 61 18 136/66 97 98.1 12/23/17 00:00 98.2 62 18 138/68 97 98.2 12/22/17 19:47 98.1 65 18 134/69 98 98.1 12/22/17 16:00 98.4 67 19 121/59 97 98.4 I&O Intake and Output 12/22/17 12/23/17 19:00 07:00 Intake Total 375 ml 525 ml Balance 375 ml 525 ml Intake IV Total 375 ml 525 ml # Voids 3 Cardiovascular: RSR Respiratory: clear Abdomen: soft, flat, non-tender, present bowel sounds Extremities: no cyanosis Laboratory Tests Test 12/23/17 07:12 White Blood Count 3.8 K/UL (4.8-10.8) L Red Blood Count 4.22 M/UL (4.20-5.40) Hemoglobin 10.0 G/DL (12.0-16.0) L Hematocrit 31.5 % (37.0-47.0) L Mean Corpuscular Volume 75 FL (80-99) L Mean Corpuscular Hemoglobin 23.8 PG (27.0-31.0) L Mean Corpuscular Hemoglobin Concent 31.9 G/DL (32.0-36.0) L Red Cell Distribution Width 15.0 % (11.6-14.8) H Platelet Count 253 K/UL (150-450) Mean Platelet Volume 7.3 FL (6.5-10.1) Neutrophils (%) (Auto) 58.4 % (45.0-75.0) Lymphocytes (%) (Auto) 27.1 % (20.0-45.0) Monocytes (%) (Auto) 11.2 % (1.0-10.0) H Eosinophils (%) (Auto) 2.7 % (0.0-3.0) Basophils (%) (Auto) 0.7 % (0.0-2.0) Neutrophils % (Manual) Pending Lymphocytes % (Manual) Pending Platelet Estimate Pending Platelet Morphology Pending Reticulocyte Count Pending Sodium Level 139 MMOL/L (136-145) Potassium Level 3.5 MMOL/L (3.5-5.1) Chloride Level 105 MMOL/L (98-107) Carbon Dioxide Level 25 MMOL/L (21-32) Anion Gap 9 mmol/L (5-15) Blood Urea Nitrogen 6 mg/dL (7-18) L Creatinine 0.6 MG/DL (0.55-1.30) Estimat Glomerular Filtration Rate > 60 mL/min (>60) Glucose Level 159 MG/DL (74-106) H Calcium Level 8.6 MG/DL (8.5-10.1) Iron Level Pending Unsaturated Iron Binding Pending Ferritin Pending Vitamin B12 Level Pending Folate Pending Hepatitis A IgM Antibody Pending Hepatitis B Surface Antigen Pending Hepatitis B Core IgM Antibody Pending Hepatitis C Antibody Pending HIV (1&2) Antibody Rapid Pending Plan Problems: (1) Small bowel obstruction Assessment & Plan: unlikely to have SBO as ostomy functional and CT findings chronic. likely has some mild ileus or chronic slow bowel transit given CT findings but this is chronic issue. abdominal pain likely from UTI. exam benign. -okay for diet from surgical standpoint -abx for uti -treat conservatively. thank you for this consultation. will follow with recs. Andrea Bernal December 23, 2017 15:30
[2017-12-23] MEDS ORDERED: Tubing IV Secondary IV ONE (15:49)
[2017-12-23] MEDS ORDERED: D5 1/2NS 1000ml IV ONE (15:49)
[2017-12-23 16:04] LABS: FERRITIN 10 NG/ML (8-388)
[2017-12-23 16:27] LABS: % IRON SATURATION 11 % (15-50); IRON 41 ug/dL (50-175); TOTAL IRON BINDING CAPACITY 359 ug/dL (250-450)
--- NOTE | 2017-12-24 02:16 | Consultation ---
DATE OF CONSULTATION: 12/23/2017 NOTE: POOR AUDIO HEMATOLOGY/ONCOLOGY CONSULTATION CONSULTING PHYSICIAN: Annie Parsons M.D. REFERRING PHYSICIAN: Jordan Murillo M.D. REASON FOR CONSULTATION: Cervical cancer and anemia. HISTORY OF PRESENT ILLNESS: The patient is an extremely pleasant, unfortunate 62-year-old female with a history of cervical cancer that is going back to 2003. Apparently, at that time, the patient was evaluated at [facility]. The patient did undergo extensive surgery requiring ostomy as well as urostomy. The patient did undergo apparently chemotherapy and radiation. I have had an extensive discussion with the patient through network systems operator at the bedside. The patient does not recall the exact course of radiation and chemotherapy or the name of the doctor, who actually treated her. The patient apparently has been followed up closely at [facility] on yearly basis. The patient does not recall any known history of recurrence of disease. The patient currently has to have significant abdominal pain for approximately 1 day. The patient is concerned about possibility of any intra-abdominal pathology related to cancer, radiation, or other issues. The patient apparently was complaining of her reports of other consultants on admission 05/04. Currently, the patient does not have any abdominal pain. PAST MEDICAL HISTORY: History of cervical cancer, status post extensive surgery, ostomy, colostomy, as well as urine diversion with urinary bag in place on the abdominal wall. History of diabetes, history of chronic intermittent abdominal pain, and history of hypertension. PAST SURGICAL HISTORY: As above. ALLERGIES: No drug allergies that the patient recalls. FAMILY HISTORY: The patient does not have any cancer in the family. SOCIAL HISTORY: The patient denies any tobacco, alcohol, or drugs. The patient resides at home. REVIEW OF SYSTEMS: CONSTITUTIONAL: The patient denies any headaches, vision changes, or hearing loss. PULMONARY: The patient denies any shortness of breath or cough. The patient denies any pleuritic chest pain. NEUROLOGIC: The patient has no focal weakness or numbness. SKIN: The patient denies any bruising or petechiae. ABDOMEN: The patient does have an ostomy in place. The patient did have significant abdominal pain on admission, currently significantly improved. GENITOURINARY: The patient does have a urinary diversion with urinary bag in place. PHYSICAL EXAMINATION: GENERAL: The patient is a well-developed female, currently in no acute distress. The patient is alert and oriented. She has been evaluated via [facility] waxer tender. VITAL SIGNS: Temperature of 98 degrees, pulse of 68, breathing at 20, and blood pressure of 130/60. HEENT: Sclerae anicteric. CHEST: Clear to auscultation with no rhonchi noted. ABDOMEN: Soft. Minimally tender around the ostomy area, however, no rebound or guarding whatsoever. There is an ostomy placed with brown soft stool in place. No blood noted. There is also a urinary diversion bag with clear mildly yellowish urine with no cloudiness. EXTREMITIES: There is no cyanosis, clubbing, or edema. LYMPH NODES: There is no cervical, supraclavicular, , axillary, or groin adenopathy. BREASTS: Done with the mica laminating machine feeder in the room. Bilateral breast examination, no nodularity noted. Of note, the patient has had mammograms in the past. The patient also has had a colonoscopy per the report. LABORATORY AND DIAGNOSTIC DATA: Laboratory as well as investigations includes a white count of 7.6, hemoglobin of 11, and platelet count of 311,000. CT scan of the abdomen and pelvis was done. The report has been evaluated, discussed with the patient, as well as the nursing staff, Rustam. The study demonstrated a mild dilation of the ileal conduit, which appeared to be at the ostomy site in the right lower quadrant. This is chronic phenomenon has been present on multiple prior studies. ASSESSMENT AND PLAN: 1. Cervical cancer, status post extensive course of surgery, chemotherapy, and radiation. The patient is currently with no evidence of disease on the CT scan. The patient is being followed by her physicians at [facility]. I have had extensive discussion with the patient. I have reassured her that the CT scan does not demonstrate based on the radiologist's report any evidence of disease. The patient does have significant abdominal pain. In the future, the patient needs to be evaluated by the surgical team at [facility]. Consideration for PICC line at that point has been made if necessary. However, the CT does not demonstrate any evidence of abnormalities at this point in time. The patient's diagnosis was in 2003, no need for any chest CT scan at this point in time. The patient is to have clinical examination by [facility]. 2. Anemia, mild. The patient has been followed in this regard. The patient's iron and ferritin needs to be evaluated. The patient needs to have a gastrointestinal evaluation. The patient continues to have anemia. Outpatient evaluation can be done with evaluation of the patient's B12, folate, iron, ferritin, serum protein electrophoresis, urine protein electrophoresis, as well as serum light chains. Obviously, if the patient's anemia worsens, this will require hematologic outpatient evaluation. 3. Abdominal pain, currently significantly improved. No evidence of obstruction based on the CT scan. The patient has been followed up by multiple teams here in the hospital. Oncologically, however, the patient is cleared at this point in time. 4. Increase ambulation. 5. Disposition per primary team. Annie Parsons M.D. DR: ANAND JOB#: [id number] CC:
--- NOTE | 2017-12-24 03:16 | Consultation ---
DATE OF CONSULTATION: 12/23/2017 NOTE: POOR AUDIO HEMATOLOGY/ONCOLOGY CONSULTATION CONSULTING PHYSICIAN: Torrey Caballero M.D. REQUESTING PHYSICIAN: Johnathon Richard M.D. REASON FOR CONSULTATION: Evaluation of anemia and cervical cancer. IDENTIFYING DATA: Dear Dr. Richard, The patient is a pleasant 62-year-old female with past medical history significant for diabetes mellitus, cervical cancer, colostomy bag, with ostomy, at this time presents with abdominal pain, localized all over the abdomen, non-sharp, nonradiating. No fevers, chills, or night sweats. Pain 10/10. At this time, hemoglobin of 10 and hematocrit of 32. Hematology/Oncology Service was consulted given ongoing history of malignancy. PAST MEDICAL HISTORY: Cervical cancer, status post chemotherapy and radiation in 2003; hypertension; diabetes mellitus; anemia; and leukopenia. PAST SURGICAL HISTORY: As noted above. CURRENT MEDICATIONS: Aspirin, benazepril, insulin, and metformin. ALLERGIES: To Reglan. SOCIAL HISTORY: , disabled. No alcohol, tobacco, or illicit drug use. REVIEW OF SYSTEMS: CONSTITUTIONAL: No fevers, chills, or night sweats. SKIN: No rashes, bumps, or itching. HEENT: No headache, hearing or vision changes. BREASTS: No lumps, pain, or discharge. PULMONARY: No cough, sputum, or shortness of breath. GASTROINTESTINAL: No nausea, vomiting, or diarrhea. GENITOURINARY: No dysuria, frequency, or urgency. MUSCULOSKELETAL: No joint swelling, muscle pain, or trauma. PHYSICAL EXAMINATION: VITAL SIGNS: Reviewed. GENERAL: No distress. PULMONARY: Decreased breath sounds. CARDIOVASCULAR: Regular rate. No S3 or S4. ABDOMEN: Soft, nontender, and nondistended. EXTREMITIES: No cyanosis, swelling, or edema noted. LABORATORY AND DIAGNOSTIC DATA: WBC 5.8, hemoglobin 10, hematocrit 32, and platelet count 253,000. Chemistry, BUN of 6 and creatinine 0.6. Lactic acid . Albumin 3.6. Lipase 57. Imaging, CT scan of the abdomen and pelvis reviewed. Mild dilation of the ileal conduit. Mild dilation of the small bowel. Historical labs have been reviewed. The patient has not had hepatitis or HIV checked. ASSESSMENT AND RECOMMENDATIONS: 1. Leukopenia, potentially secondary to underlying infection versus reactive process. 2. Abdominal pain, chronic slow bowel transit, has been seen by Surgical Service. 3. Hepatitis and HIV pending. 4. Anemia due to underlying chronic disease. Anemia workup has been ordered at this time and results are pending. 5. Cervical cancer, status post resection, colostomy bag. Closely monitor. No changes, many years since last treatment. 6. Abdominal pain, has been seen by Surgical Service. 7. Urinary tract infection, is on broad-spectrum antibiotics. 8. Diabetes mellitus type 2, on regular insulin sliding scale. 9. I appreciate the consultation. Thank you for consultation. Torrey Caballero M.D. DR: DENNIS JOB#: [id number] CC:
--- NOTE | 2017-12-25 12:30 | Discharge Summary ---
Discharge Summary Discharge Summary _ DATE OF ADMISSION: 12/22/2017 DATE OF DISCHARGE: 12/23/2017 ATTENDING: Dr. Jordan Murillo CONSULTANTS: Dr. Luis M Parsons BRIEF HOSPITAL COURSE: Patient is a 62-year-old female, presented with chief complaint of abdominal pain. Symptoms began 12/21/2017, when she developed abdominal pain, pain was generalized and comes and goes. Intensity was 10 over 10, she denied any nausea or vomiting. Denied fever or chills. She has medical history significant for diabetes mellitus type 2, hypertension, history of cervical CA status post chemotherapy and radiation therapy in 2003 and colostomy in 2005. On evaluation at ED, there was no leukocytosis, urinalysis was with 3+ leukocyte esterase, 30-40 RBC, too many to count WBC. She had a CT of the abdomen and pelvis that showed small bowel obstruction. She was then admitted for further workup. Surgical evaluation was done. Abdominal exam was benign, unlikely for SBO as ostomy was functional. CT findings may be chronic. No surgical intervention was recommended. She was continued on IV ceftriaxone. She was started on diet. She was seen by oncologist. Patient currently with no evidence of disease on CT scan. She was reassured that CT scan did not demonstrate any evidence of disease. She was recommended to undergo clinical examination by gynecology -oncologist at a [facility] facility. In terms of anemia, workup showed iron level of 41, TIBC 259 and ferritin of 10. HIV and hepatitis panel were negative. Urine culture came out positive for Escherichia coli sensitive to ceftriaxone. She was discharged home. FINAL DIAGNOSES: Abdominal pain possible small bowel obstruction Escherichia coli UTI Colostomy Diabetes mellitus Iron deficiency anemia Leukopenia Anemia due to underlying chronic disease Cervical cancer status post resection DISPOSITION: Patient was discharged home. DISCHARGE MEDICATIONS: Refer to Discharge Medication List. DISCHARGE INSTRUCTIONS: Follow up with PCP in a [facility]/ [facility]. I have been assigned to dictate discharge summary on this account, and I was not involved in the patient's management. Shellie Falk NP Dec 25, 2017 12:30
== END 2017-12-23 15:50 | disposition home or self-care (01) | DRG 251 ==
LOC: EMR 01:22 → 4W 03:40 → EDBEDREQ 04:03
DX: R10.9 Unspecified abdominal pain (principal); Z43.3 Encounter for attention to colostomy; I10 Essential (primary) hypertension; N39.0 Urinary tract infection, site not specified; E11.9 Type 2 diabetes mellitus without complications; D50.9 Iron deficiency anemia, unspecified; Z43.5 Encounter for attention to cystostomy; Z85.41 Personal history of malignant neoplasm of cervix uteri; Z92.3 Personal history of irradiation; Z79.4 Long term (current) use of insulin; Z88.8 Allergy status to other drugs, medicaments and biological substances; Z79.84 Long term (current) use of oral hypoglycemic drugs; D72.819 Decreased white blood cell count, unspecified
CPT/HCPCS: 36415; 74177; 80048; 80053; 81003; 82607; 82728; 82746; 82962; 83036; 83540; 83550; 83605; 83690; 85007; 85025; 85044; 85060; 86703; 86705; 86709; 86803; 87086; 87181; 87340; 93005; 96372; 96374; 96375; 99284; J1815; J2405

== ENCOUNTER 2018-02-09 17:42 | Emergency (ER) | payer MEDICAID ==
[~2018-02-09] VITALS: Ht 157.5 cm; Wt 64.9 kg
[~2018-02-09 17:42] MED LIST changes: +CEPHALEXIN500 MG ORAL; +HYDROMORPHONE HC4 M1 PO
[2018-02-09 17:57] VITALS: BP 136/72
[2018-02-09] MEDS ORDERED: Isovue-300 100ml vial INJ PRN (18:15)
[2018-02-09 18:57] LABS: BASOPHILS % (AUTO) 0.8 % (0.0-2.0); EOSINOPHILS % (AUTO) 2.7 % (0.0-3.0); HEMATOCRIT 34.3 % (37.0-47.0); HEMOGLOBIN 10.9 G/DL (12.0-16.0); LYMPHOCYTES % (AUTO) 23.2 % (20.0-45.0); MEAN CORPUSCULAR VOLUME 73 FL (80-99); MONOCYTES % (AUTO) 9.3 % (1.0-10.0); NEUTROPHILS % (AUTO) 64.1 % (45.0-75.0); PLATELET COUNT 395 K/UL (150-450); RED BLOOD COUNT 4.67 M/UL (4.20-5.40); RED CELL DISTRIBUTION WIDTH 14.9 % (11.6-14.8); WHITE BLOOD COUNT 6.6 K/UL (4.8-10.8)
[2018-02-09 18:58] LABS: APPEARANCE,URINE CLEAR; BILIRUBIN, URINE NEGATIVE (NEGATIVE); COLOR,URINE PALE YELLOW; GLUCOSE, URINE (UA) NEGATIVE (NEGATIVE); KETONES,URINE NEGATIVE (NEGATIVE); LEUKOCYTE ESTERASE ,URINE 2+ (NEGATIVE); NITRITE,URINE NEGATIVE (NEGATIVE); PH,URINE 8 (4.5-8.0); PROTEIN,URINE 2+ (NEGATIVE); UROBILINOGEN,URINE NORMAL MG/DL (0.0-1.0)
[2018-02-09 19:09] LABS: ANION GAP 8 mmol/L (5-15); BLOOD UREA NITROGEN 12 mg/dL (7-18); CALCIUM 9.1 MG/DL (8.5-10.1); CARBON DIOXIDE 25 MMOL/L (21-32); CHLORIDE 102 MMOL/L (98-107); CREATININE 0.6 MG/DL (0.55-1.30); POTASSIUM 3.7 MMOL/L (3.5-5.1); SODIUM 135 MMOL/L (136-145)
[2018-02-09 19:13] LABS: ALANINE AMINOTRANSFERASE 18 U/L (12-78); ALBUMIN 3.3 G/DL (3.4-5.0); ALBUMIN/GLOBULIN RATIO 0.7 (1.0-2.7); ALKALINE PHOSPHATASE 100 U/L (46-116); ASPARTATE AMINO TRANSFERASE 16 U/L (15-37); BILIRUBIN,TOTAL 0.1 MG/DL (0.2-1.0)
[2018-02-09] MEDS ORDERED: cefTRIAXone 1 GM in NS 55 ML IVPB ONE (19:30)
--- NOTE | 2018-02-09 20:33 | Emergency Room Report ---
History of Present Illness General Chief Complaint: Gastrointestinal Illness Source: Patient Present Illness HPI This patient has both a colostomy and urostomy bag. This is secondary to a history of cervical cancer. This initial surgery was in 2003. She has failed takedown procedures which is why she continues to have a colostomy and urostomy bag. She states that for the past 2 months she has noticed watery stool in her colostomy. She has not seen her primary care physician for this. She denies fever or chills. She denies pain. She denies nausea or vomiting. She has no other complaints. Allergies: Coded Allergies: METOCLOPRAMIDE (Verified Allergy, Unknown, 05/08/11) Patient History Past Medical History: see triage record, DM Past Surgical History: other - colostomy, urostomy Social History: Denies: smoking, alcohol use, drug use Reviewed Nursing Documentation: PMH: Agreed; PSxH: Agreed Nursing Documentation-PMH Hx Cardiac Problems: No Hx Hypertension: Yes Hx Pacemaker: No Hx Asthma: No Hx COPD: No Hx Diabetes: Yes Hx Cancer: Yes - CERVICAL 2003 Hx Gastrointestinal Problems: Yes - Colostomy Hx Dialysis: No Hx Neurological Problems: No Hx Cerebrovascular Accident: No Hx Seizures: No Review of Systems All Other Systems: negative except mentioned in HPI Physical Exam Vital Signs Date Time Temp Pulse Resp B/P (MAP) Pulse Ox O2 Delivery O2 Flow Rate FiO2 02/09/18 17:46 98.4 77 18 136/72 95 Room Air 98.4 Sp02 EP Interpretation: reviewed, normal General Appearance: no apparent distress, alert, GCS 15, non-toxic Head: normocephalic, atraumatic Eyes: bilateral eye normal inspection, bilateral eye PERRL ENT: hearing grossly normal, normal pharynx, no angioedema, normal voice Neck: full range of motion, supple/symm/no masses Respiratory: chest non-tender, lungs clear, normal breath sounds, no respiratory distress, no retraction, no accessory muscle use, speaking full sentences Cardiovascular #1: regular rate, rhythm, no edema Gastrointestinal: normal bowel sounds, non tender, soft, non-distended, no guarding, no rebound, other - Colostomy bag clean, no stool. Site clear. Urostomy bag clean/site intact and normal. Rectal: deferred Musculoskeletal: back normal, gait/station normal, normal range of motion, non- tender Neurologic: alert, oriented x3, responsive, motor strength/tone normal, sensory intact, speech normal Psychiatric: judgement/insight normal, memory normal, mood/affect normal, no suicidal/homicidal ideation Skin: normal color, no rash, warm/dry, well hydrated Medical Decision Making Diagnostic Impression: Primary Impression: Diarrhea Additional Impression: UTI (urinary tract infection) ER Course This patient has 2 months of diarrhea. Given the colostomy and urostomy bags, I did obtain a CT of the abdomen and pelvis. There are areas of mild small bowel wall thickening consistent with a mild enteritis. Otherwise incidental finding of other ventral wall hernias. The patient is well-appearing and nontoxic. Laboratory workup is benign. The patient did have a urinalysis that showed some evidence of infection. However, this could be colonization given a urostomy bag. Given the mild enteritis and the findings on urinalysis, I will go ahead and give the patient a course of antibiotics. I will give Cipro to treat both the enteritis and the UTI. The patient is instructed to follow closely with her primary care physician for further testing to include stool testing. At this time, there is no emergency medical condition. The patient is given close return precautions and follow-up instructions. Laboratory Tests Test 02/09/18 18:25 White Blood Count 6.6 K/UL (4.8-10.8) Red Blood Count 4.67 M/UL (4.20-5.40) Hemoglobin 10.9 G/DL (12.0-16.0) L Hematocrit 34.3 % (37.0-47.0) L Mean Corpuscular Volume 73 FL (80-99) L Mean Corpuscular Hemoglobin 23.4 PG (27.0-31.0) L Mean Corpuscular Hemoglobin Concent 31.9 G/DL (32.0-36.0) L Red Cell Distribution Width 14.9 % (11.6-14.8) H Platelet Count 395 K/UL (150-450) Mean Platelet Volume 5.8 FL (6.5-10.1) L Neutrophils (%) (Auto) 64.1 % (45.0-75.0) Lymphocytes (%) (Auto) 23.2 % (20.0-45.0) Monocytes (%) (Auto) 9.3 % (1.0-10.0) Eosinophils (%) (Auto) 2.7 % (0.0-3.0) Basophils (%) (Auto) 0.8 % (0.0-2.0) Urine Color Pale yellow Urine Appearance Clear Urine pH 8 (4.5-8.0) Urine Specific [place] 1.010 (1.005-1.035) Urine Protein 2+ (NEGATIVE) H Urine Glucose (UA) Negative (NEGATIVE) Urine Ketones Negative (NEGATIVE) Urine Occult Blood 4+ (NEGATIVE) H Urine Nitrite Negative (NEGATIVE) Urine Bilirubin Negative (NEGATIVE) Urine Urobilinogen Normal MG/DL (0.0-1.0) Urine Leukocyte Esterase 2+ (NEGATIVE) H Urine RBC 10-15 /HPF (0 - 2) H Urine WBC 20-30 /HPF (0 - 2) H Urine Squamous Epithelial Cells Occasional /LPF Urine Bacteria Few /HPF (NONE) Sodium Level 135 MMOL/L (136-145) L Potassium Level 3.7 MMOL/L (3.5-5.1) Chloride Level 102 MMOL/L (98-107) Carbon Dioxide Level 25 MMOL/L (21-32) Anion Gap 8 mmol/L (5-15) Blood Urea Nitrogen 12 mg/dL (7-18) Creatinine 0.6 MG/DL (0.55-1.30) Estimate Glomerular Filtration Rate > 60 mL/min (>60) Glucose Level 159 MG/DL (74-106) H Calcium Level 9.1 MG/DL (8.5-10.1) Total Bilirubin 0.1 MG/DL (0.2-1.0) L Aspartate Amino Transferase (AST) 16 U/L (15-37) Alanine Aminotransferase (ALT) 18 U/L (12-78) Alkaline Phosphatase 100 U/L (46-116) Total Protein 7.8 G/DL (6.4-8.2) Albumin 3.3 G/DL (3.4-5.0) L Globulin 4.5 g/dL Albumin/Globulin Ratio 0.7 (1.0-2.7) L Lipase 100 U/L (73-393) CT/MRI/US Diagnostic Results CT/MRI/US Diagnostic Results : Imaging Test Ordered: CT abd/pelvis Impression See official report. No bowel injection. Areas of mild small bowel wall thickening suggesting mild enteritis. Bilateral enterostomies are noted. Interval development of parastomal hernia at the right lower quadrant enterostomy, containing a moderate segmental nonobstructive small bowel. Multiple other ventral wall hernias are present. Presacral edema is again noted. Last Vital Signs Date Time Temp Pulse Resp B/P (MAP) Pulse Ox O2 Delivery O2 Flow Rate FiO2 02/09/18 17:57 98.4 84 18 136/72 95 Room Air 98.4 Status: improved Disposition: HOME, SELF-CARE Condition: Improved Referrals: NON PHYSICIAN (PCP) Pamela Quigley DO Feb 09, 2018 20:33
[2018-02-09] MEDS ORDERED: CIPROFLOXACIN500 M2 ORAL (20:51)
[2018-02-09 21:14] VITALS: BP 126/50
--- NOTE | 2018-02-10 08:59 | Diagnostic Imaging Report ---
Clinical Indication: Abdominal pain with watery stool x1 month Technique: No oral contrast utilized, per emergency room physician request IV administration nonionic contrast. Venous phase spiral acquisition obtained through the abdomen and pelvis. Multiplanar reconstructions were generated. Total dose length product 629.91 mGycm. CTDIvol(s) 13.01 mGy. Dose reduction achieved using automated exposure control Comparison: 12/22/2017 Findings: There is a right lower urinary diversion. A few loops of small bowel are herniated into this. The urinary diversion pouch is considerably less dilated than on the prior study. One or more high attenuation foci in the conduit may represent small calculi. These were described previously There is also a distal descending colostomy. Small bowel loops are nondilated. There is equivocally minimal small bowel wall thickening of the jejunum. Previously demonstrated small bowel dilatation leading into the urinary conduit hernia has resolved. There is also an adjacent but probably separate small ventral hernia containing a knuckle of small bowel There is a surgical distal ileal anastomosis in the right lower quadrant which is slightly distended with feces but much less so than on the previous study. No free or loculated intraperitoneal air or fluid is evident. There is evidence of prior Rodriguez procedure, as well as a colocolic anastomosis at the rectosigmoid junction. Again demonstrated is infiltration of the presacral fat. The distal esophagus, stomach, duodenum are unremarkable. There is an umbilical hernia containing a knuckle of small bowel again demonstrated. The liver demonstrates a capsular calcification in the tip of the right lobe, and a subcentimeter low-attenuation lesion in segment 4A which is too small to characterize, most likely benign simple cyst or bile hamartoma. The gallbladder, bile ducts, pancreas, spleen, adrenals are unremarkable. The kidneys again demonstrate mild bilateral hydronephrosis and proximal extrarenal pelves. As mentioned above, there is evidence of prior urinary diversion surgery. The bladder is surgically absent. The uterus and adnexal structures are unremarkable. The included lung bases demonstrate posterior dependent atelectatic changes. The bones demonstrate degenerative spondylosis changes. There is grade 1-2 L4 on L5 spondylolisthesis without associated spondylolysis. Impression: Equivocal mild proximal small bowel wall thickening, could indicate mild enteritis changes. Right lower quadrant urinary diversion, appearing less distended than on previous study of 12/22/2017. Associated evidence of prior cystectomy. Note calculi within the diversion pouch, also previously reported Persistent herniation of small bowel into the above. Note, however, that previously demonstrated small bowel distention and stasis appears to have resolved. Evidence of other extensive bowel surgery, including multiple ileoileal anastomoses, descending colostomy and Rodriguez procedure, prior rectosigmoid anastomosis. Mild bilateral hydronephrosis, decreased from previous exam. Umbilical and right lower quadrant ventral hernias, containing a knuckle of small bowel, apparently nonobstructive Other findings as noted, including alignment abnormality at L4-5, degenerative spondylosis, posterior dependent pulmonary atelectatic changes This agrees with the preliminary interpretation provided overnight by [facility] teleradiology service. The CT scanner at [facility] is accredited by the [employer] and the scans are performed using protocols designed to limit radiation exposure to as low as reasonably achievable to attain images of sufficient resolution adequate for diagnostic evaluation.
== END 2018-02-09 21:12 | disposition home or self-care (01) ==
LOC: EMR 18:20
DX: R19.7 Diarrhea, unspecified (principal); N39.0 Urinary tract infection, site not specified; Z93.3 Colostomy status; Z88.8 Allergy status to other drugs, medicaments and biological substances; I10 Essential (primary) hypertension; Z85.41 Personal history of malignant neoplasm of cervix uteri; E11.9 Type 2 diabetes mellitus without complications; M47.9 Spondylosis, unspecified; K42.9 Umbilical hernia without obstruction or gangrene; K43.9 Ventral hernia without obstruction or gangrene; N13.39 Other hydronephrosis
CPT/HCPCS: 36415; 74177; 80053; 81003; 83690; 85025; 87086; 87181; 96361; 96365; 99284; J0696; Q9967

== ENCOUNTER 2018-02-23 22:58 | Inpatient (IN) | payer MEDICAID ==
[~2018-02-23] VITALS: Ht 154.9 cm; Wt 63.0 kg
[2018-02-23 23:05] VITALS: BP 164/70
[2018-02-23] MEDS ORDERED: UNOBMED (23:11)
[2018-02-23] MEDS ORDERED: Isovue-300 100ml vial INJ PRN (23:30)
[2018-02-23] MEDS ORDERED: Morphine Sulfate 4mg/ml Inj (IV USE ONLY) IVP ONE (23:30)
[2018-02-24 00:34] LABS: BASOPHILS % (AUTO) 0.8 % (0.0-2.0); EOSINOPHILS % (AUTO) 1.3 % (0.0-3.0); HEMATOCRIT 37.2 % (37.0-47.0); HEMOGLOBIN 11.7 G/DL (12.0-16.0); LYMPHOCYTES % (AUTO) 22.6 % (20.0-45.0); MEAN CORPUSCULAR VOLUME 73 FL (80-99); MONOCYTES % (AUTO) 9.4 % (1.0-10.0); NEUTROPHILS % (AUTO) 65.9 % (45.0-75.0); PLATELET COUNT 329 K/UL (150-450); RED BLOOD COUNT 5.11 M/UL (4.20-5.40); RED CELL DISTRIBUTION WIDTH 14.4 % (11.6-14.8); WHITE BLOOD COUNT 5.8 K/UL (4.8-10.8)
[2018-02-24 00:39] LABS: ANION GAP 11 mmol/L (5-15); BLOOD UREA NITROGEN 9 mg/dL (7-18); CALCIUM 9.8 MG/DL (8.5-10.1); CARBON DIOXIDE 27 MMOL/L (21-32); CHLORIDE 103 MMOL/L (98-107); CREATININE 0.7 MG/DL (0.55-1.30); POTASSIUM 3.8 MMOL/L (3.5-5.1); SODIUM 141 MMOL/L (136-145)
[2018-02-24 00:46] LABS: ALANINE AMINOTRANSFERASE 21 U/L (12-78); ALBUMIN 3.6 G/DL (3.4-5.0); ALBUMIN/GLOBULIN RATIO 0.9 (1.0-2.7); ALKALINE PHOSPHATASE 97 U/L (46-116); ASPARTATE AMINO TRANSFERASE 8 U/L (15-37); BILIRUBIN,TOTAL 0.6 MG/DL (0.2-1.0)
[2018-02-24 01:18] LABS: APPEARANCE,URINE CLEAR; BILIRUBIN, URINE NEGATIVE (NEGATIVE); COLOR,URINE PALE YELLOW; GLUCOSE, URINE (UA) NEGATIVE (NEGATIVE); KETONES,URINE NEGATIVE (NEGATIVE); LEUKOCYTE ESTERASE ,URINE NEGATIVE (NEGATIVE); NITRITE,URINE NEGATIVE (NEGATIVE); PH,URINE 8 (4.5-8.0); PROTEIN,URINE NEGATIVE (NEGATIVE); UROBILINOGEN,URINE NORMAL MG/DL (0.0-1.0)
--- NOTE | 2018-02-24 02:21 | Emergency Room Report ---
History of Present Illness General Chief Complaint: Abdominal Pain Source: Patient Present Illness HPI 62-year-old female presents ED complaining of abdominal pain. Started yesterday. Left-sided, sharp, 8 out of 10, nonradiating. Getting worse today. Patient has colostomy and nephrostomy bags in place. History of cervical cancer. Surgery done many years ago at [facility]. Denies chest pain or shortness of breath. Denies fevers or chills. No other aggravating relieving factors. Denies any other associated symptoms Allergies: Coded Allergies: METOCLOPRAMIDE (Verified Allergy, Unknown, 02/23/18) Patient History Past Medical History: DM, HTN, other - cervical cancer Past Surgical History: other - colostomy, nephrostomy Pertinent Family History: none Social History: Denies: smoking, alcohol use, drug use Now: No Immunizations: UTD Reviewed Nursing Documentation: PMH: Agreed; PSxH: Agreed Nursing Documentation-PMH Hx Hypertension: Yes Hx Diabetes: Yes Hx Gastrointestinal Problems: Yes - colostomy,nephrostomy Review of Systems All Other Systems: negative except mentioned in HPI Physical Exam Vital Signs Date Time Temp Pulse Resp B/P (MAP) Pulse Ox O2 Delivery O2 Flow Rate FiO2 02/23/18 23:05 98.5 60 14 164/70 100 Nasal Cannula 2.0 98.5 Sp02 EP Interpretation: reviewed, normal General Appearance: alert, GCS 15, non-toxic, mild distress Head: normocephalic, atraumatic Eyes: bilateral eye normal inspection, bilateral eye PERRL ENT: hearing grossly normal, normal pharynx, no angioedema, normal voice Neck: full range of motion, supple/symm/no masses Respiratory: chest non-tender, lungs clear, normal breath sounds, speaking full sentences Cardiovascular #1: regular rate, rhythm, no edema Cardiovascular #2: 2+ carotid (R), 2+ carotid (L), 2+ radial (R), 2+ radial (L) , 2+ dorsalis pedis (R), 2+ dorsalis pedis (L) Gastrointestinal: normal bowel sounds, soft, non-distended, no guarding, no rebound, tenderness, other - neprhostomy/colostomy sites, C/D/I Rectal: deferred Genitourinary: normal inspection, no CVA tenderness Musculoskeletal: back normal, gait/station normal, normal range of motion, non- tender Neurologic: alert, oriented x3, responsive, motor strength/tone normal, sensory intact, speech normal Psychiatric: judgement/insight normal, memory normal, mood/affect normal, no suicidal/homicidal ideation Reflexes: 3+ bicep (R), 3+ bicep (L), 3+ tricep (R), 3+ tricep (L), 3+ knee (R) , 3+ knee (L) Skin: normal color, no rash, warm/dry, well hydrated Lymphatic: no adenopathy Medical Decision Making Diagnostic Impression: Primary Impression: SBO (small bowel obstruction) ER Course Hospital Course 62-year-old female presents to ED with abdominal pain. h/o colostomy/nephrostomy Differential diagnoses include: BPH, cystitis, pyelonephritis, kidney stone,SBO Clinical course Patient placed on stretcher. 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 After initial history and physical I ordered labs, IV fluids, UA, pain medication and CT scan Labs - no leukocytosis, Hb/Hct stable. electrolytes ok. CT abdomen and pelvis - SBO Patient continues to have pain requiring multiple rounds of analgesic medications Case discussed with Dr. Simons and he agreed to accept the patient to his service for further care and support. Dr. Millard agreed to consult on case I feel this is a highly complex case requiring extensive working including EKG/ Rhythm strip, Xray/CT/US, Blood/urine lab work, repeat exams while in ED, and administration of strong opiates/narcotics for pain control, admission to hospital or close patient follow up. Diagnosis - small bowel obstruction Patient admitted to floor in serious condition Labs Test 02/24/18 00:10 02/24/18 00:40 White Blood Count 5.8 K/UL (4.8-10.8) Red Blood Count 5.11 M/UL (4.20-5.40) Hemoglobin 11.7 G/DL (12.0-16.0) Hematocrit 37.2 % (37.0-47.0) Mean Corpuscular Volume 73 FL (80-99) Mean Corpuscular Hemoglobin 22.8 PG (27.0-31.0) Mean Corpuscular Hemoglobin Concent 31.3 G/DL (32.0-36.0) Red Cell Distribution Width 14.4 % (11.6-14.8) Platelet Count 329 K/UL (150-450) Mean Platelet Volume 6.3 FL (6.5-10.1) Neutrophils (%) (Auto) 65.9 % (45.0-75.0) Lymphocytes (%) (Auto) 22.6 % (20.0-45.0) Monocytes (%) (Auto) 9.4 % (1.0-10.0) Eosinophils (%) (Auto) 1.3 % (0.0-3.0) Basophils (%) (Auto) 0.8 % (0.0-2.0) Sodium Level 141 MMOL/L (136-145) Potassium Level 3.8 MMOL/L (3.5-5.1) Chloride Level 103 MMOL/L (98-107) Carbon Dioxide Level 27 MMOL/L (21-32) Anion Gap 11 mmol/L (5-15) Blood Urea Nitrogen 9 mg/dL (7-18) Creatinine 0.7 MG/DL (0.55-1.30) Estimat Glomerular Filtration Rate > 60 mL/min (>60) Glucose Level 173 MG/DL (74-106) Calcium Level 9.8 MG/DL (8.5-10.1) Total Bilirubin 0.6 MG/DL (0.2-1.0) Aspartate Amino Transf (AST/SGOT) 8 U/L (15-37) Alanine Aminotransferase (ALT/SGPT) 21 U/L (12-78) Alkaline Phosphatase 97 U/L (46-116) Total Protein 7.8 G/DL (6.4-8.2) Albumin 3.6 G/DL (3.4-5.0) Globulin 4.2 g/dL Albumin/Globulin Ratio 0.9 (1.0-2.7) Lipase 106 U/L (73-393) Urine Color Pale yellow Urine Appearance Clear Urine pH 8 (4.5-8.0) Urine Specific [place] 1.010 (1.005-1.035) Urine Protein Negative (NEGATIVE) Urine Glucose (UA) Negative (NEGATIVE) Urine Ketones Negative (NEGATIVE) Urine Occult Blood Negative (NEGATIVE) Urine Nitrite Negative (NEGATIVE) Urine Bilirubin Negative (NEGATIVE) Urine Urobilinogen Normal MG/DL (0.0-1.0) Urine Leukocyte Esterase Negative (NEGATIVE) CT/MRI/US Diagnostic Results CT/MRI/US Diagnostic Results : Imaging Test Ordered: CT A/P Impression small bowel obstruction Last Vital Signs Date Time Temp Pulse Resp B/P (MAP) Pulse Ox O2 Delivery O2 Flow Rate FiO2 02/24/18 00:04 98.4 02/23/18 23:06 65 18 100 Room Air 02/23/18 23:05 164/70 2.0 Status: improved Disposition: ADMITTED INPATIENT Condition: Serious Referrals: NOT CHOSEN IPA/,REFERRING (PCP) Rudolph Malik MD Feb 24, 2018 02:21
[2018-02-24 02:31] VITALS: BP 158/56
[2018-02-24] MEDS ORDERED: Morphine Sulfate 4mg/ml Inj (IV USE ONLY) IVP ONE ×3 (03:00→10:45)
[2018-02-24] MEDS ORDERED: UNOBMED (03:16)
[2018-02-24] MEDS ORDERED: Ketorolac 30mg Inj IV ONE (04:15)
[2018-02-24 04:42] VITALS: BP 156/54
[2018-02-24 08:00] VITALS: BP 165/80
[2018-02-24] MEDS: Morphine Sulfate 4mg/ml Inj (IV USE ONLY) IVP PRN ×2 (08:36→11:52)
--- NOTE | 2018-02-24 09:45 | Consultation ---
DATE OF CONSULTATION: 02/24/2018 CONSULTING PHYSICIAN: Elijah Garibay M.D. REQUESTING PHYSICIAN: Emergency room physician. REASON FOR CONSULTATION: Abdominal pain. HISTORY OF PRESENT ILLNESS: This is a 62-year-old female, who presented to emergency room complaining of one-day history of abdominal pain. The pain is crampy and located at mainly in the lower abdomen. This pain has been there and she denies any nausea or vomiting. She has had extensive surgeries, which includes , colostomy, and urinary diversion. Apparently, the last surgery had been in 2006. She stated that yesterday she had some feces from the colostomy, but since yesterday there has been no output from the colostomy. She denied any fever, cough, dysuria, or frequency. She has a history of previous similar episodes. PAST MEDICAL HISTORY: She claims to be allergic to Reglan. She denies asthma and cardiac diseases. She has a history of diabetes, hypertension, and urinary diversion. PAST SURGICAL HISTORY: Include x1, colostomy, urinary diversion apparently for uterine cervical cancer. It is not clear if she has had a hysterectomy or any other operation in the pelvis. MEDICATIONS: Please see the medicine reconciliation form. SOCIAL HISTORY: The patient is a 62-year-old female, who is , mother of five children. She is unemployed and denies smoking and drinking. REVIEW OF SYSTEMS: Noncontributory. PHYSICAL EXAMINATION: GENERAL: The patient appeared to be a well-developed, well-nourished, 62-year-old female, lying on the bed, complaining of abdominal pain. HEENT: Head is normocephalic and atraumatic. Eyes, pupils are equal, round, and reactive to light. Mouth is clear. NECK: There is no palpable thyromegaly or adenopathy. CHEST: Clear to auscultation and percussion. HEART: There is no gallop or murmur. ABDOMEN: Soft. She might have a mild distention. There is no tenderness. Bowel sounds are hypoactive. She has a colostomy on the left lower quadrant and urinary diversion on the right lower quadrant. She has a scar of the midline incision and transverse suprapubic incision. GENITAL: Deferred. EXTREMITIES: Within normal limits. DIAGNOSTIC DATA: CAT scan of the abdomen has been interpreted as small bowel obstruction, but review of the CAT scan reveals gas and stool in the transverse and descending colon. CBC, chemistry, and UA is normal. ASSESSMENT: Possible partial small bowel obstruction. RECOMMENDATION: At this time, the patient is NPO, on NG tube suctioning. I took the liberty of ordering a gastrografin small bowel follow-through. Eiljah Garibay M.D. DR: MELINA JOB#: [id number] CC:
--- NOTE | 2018-02-24 10:14 | Diagnostic Imaging Report ---
Indication: NG tube placement Technique: XRAY Abdomen 1v Comparison: Concurrent CT of the abdomen. Findings: NG tube tip in the stomach. There are some mildly dilated loops of small bowel consistent with findings of recent CT. Multiple surgical clips are noted in the abdomen. There are bilateral lower quadrant ostomies. Contrast is noted within the renal collecting systems from prior IV contrast administration. There are degenerative changes of the spine. No acute osseous abnormality seen. IMPRESSION: NG tube in the stomach. Additional findings are similar to prior CT.
[2018-02-24] MEDS ORDERED: Morphine Sulfate 4mg/ml Inj (IV USE ONLY) IVP SCH (10:45)
--- NOTE | 2018-02-24 11:57 | History and Physical ---
History of Present Illness General Date patient seen: Feb 24, 2018 Reason for Hospitalization: Abdominal Pain Present Illness HPI 62 yo F w/ Hx cervical cancer, colostomy, diverting urostomy and prior episodes of SBO presents w/ 24 hrs of abdominal pain and decreased colostomy output. She denies nausea, vomiting, fever, chills. She has been evaluated by surgery and NGT placed for decompression. small bowel followthrough has been ordered. Pt having moderate to severe pain in abdomen after po contrast (non radiating, RLQ, tender to palp and improved w/ opiates). Allergies: Coded Allergies: METOCLOPRAMIDE (Verified Allergy, Unknown, 05/08/11) Medication History Scheduled Aspirin* (Aspir 81*), 81 MG ORAL DAILY, (Reported) Benazepril Hcl* (Benazepril Hcl*), 10 MG ORAL DAILY, (Reported) Cephalexin* (Keflex*), 500 MG ORAL EVERY 6 HOURS Ciprofloxacin Hcl* (Ciprofloxacin Hcl*), 500 MG ORAL Q12H Hydromorphone Hcl (Hydromorphone Hcl), 4 MG PO Q4HR, (Reported) Ibuprofen* (Motrin*), 600 MG ORAL FOUR TIMES A DAY, (Reported) Metformin Hcl* (Metformin Hcl*), 500 MG ORAL TWICE A DAY, (Reported) Scheduled PRN Ciprofloxacin Hcl* (Ciprofloxacin Hcl*), 500 MG ORAL EVERY 12 HOURS PRN Miscellaneous Medications Hum Insulin Nph/Reg Insulin Hm (Humulin 70-30 Vial), 0 SUBQ, (Reported) Unable to Obtain Medications (Unable To Obtain Meds), (Reported) Unable to Obtain Medications (Unable To Obtain Meds), (Reported) Durable Medical Equipment Colostomy Bags (One-Piece Drainable Pouch), 1 EACH [facility], (DME) Colostomy Washer (Adapt Barrier Ring), 1 EACH [facility], (DME) Patient History Healthcare decision maker Resuscitation status Full Code Advanced Directive on File Review of Systems Constitutional: Denies: no symptoms, see HPI, chills, sweats, fever, malaise, weakness, other Eye: Denies: no symptoms, see HPI, eye pain, blurred vision, tearing, double vision, nose pain, nose congestion, acuity changes, discharge, other ENT: Denies: no symptoms, see HPI, ear pain, ear discharge, nose pain, nose congestion, throat pain, throat swelling, mouth pain, hearing loss, nasal discharge, other Respiratory: Denies: no symptoms, see HPI, cough, orthopnea, shortness of breath, stridor, wheezing, OCHOA, sputum, other Cardiovascular: Denies: no symptoms, see HPI, chest pain, edema, palpitations, syncope, PND, other Gastrointestinal: Reports: see HPI, abdominal pain; Denies: no symptoms, constipation, diarrhea, nausea, vomiting, melena, hematemesis, other Genitourinary: Denies: no symptoms, see HPI, discharge, dysuria, frequency, hematuria, pain, retention, incontinence, urgency, vag bleed/dc, other Musculoskeletal: Denies: no symptoms, see HPI, back pain, gout, joint pain, joint swelling, muscle pain, muscle stiffness, other Skin: Denies: no symptoms, see HPI, rash, change in color, change in hair/nails , dryness, lesions, other Neurological: Denies: no symptoms, see HPI, headache, numbness, paresthesia, seizure, tingling, tremors, focal weakness, syncope, dizziness, other Endocrine: Denies: no symptoms, see HPI, excessive sweating, flushing, intolerance to temperature, increased thirst, increased urine, unexplained weight loss, other Hematologic/Lymphatic: Denies: no symptoms, see HPI, anemia, blood clots, easy bleeding, easy bruising, swollen glands, diathesis, other Physical Exam General Appearance: WD/WN, alert, moderate distress HEENT: normocephalic, atraumatic, anicteric, mucous membranes moist, PERRL Neck: supple Respiratory/Chest: chest wall non-tender, lungs clear, normal breath sounds, no respiratory distress, no accessory muscle use, respiratory distress Cardiovascular/Chest: normal peripheral pulses, normal rate, regular rhythm, regularly irregular, no gallop/murmur, no JVD Abdomen: other - colostomy & urostomy in place. no colostomy output. distended abdomen. tympanic to precussion. absent bowel sounds. 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, no motor/sensory deficits, abnormal gait , alert, oriented x 3 Last 24 Hour Vital Signs Date Time Temp Pulse Resp B/P (MAP) Pulse Ox O2 Delivery O2 Flow Rate FiO2 8/2/18 09:00 Room Air 02/24/18 08:00 98.3 65 19 165/80 (108) 97 98.3 02/24/18 06:08 Room Air 02/24/18 04:43 98.8 57 16 156/54 96 Room Air 02/24/18 04:42 98.8 57 18 156/54 97 Room Air 98.8 02/24/18 04:11 98.8 02/24/18 04:10 98.8 02/24/18 03:20 98.8 02/24/18 02:50 98.8 02/24/18 02:31 98.8 54 18 158/56 100 Room Air 2.0 98.8 02/24/18 00:04 98.4 02/23/18 23:34 98.4 02/23/18 23:06 98.4 65 18 100 Room Air 98.4 02/23/18 23:05 98.5 60 14 164/70 100 Nasal Cannula 2.0 98.5 Intake and Output 02/23/18 02/24/18 19:00 07:00 Intake Total 1000 ml Output Total 1150 ml Balance -150 ml Intake Oral 0 ml IV Total 1000 ml Output Urine Total 1150 ml Laboratory Tests Test 02/24/18 00:10 02/24/18 00:40 White Blood Count 5.8 K/UL (4.8-10.8) Red Blood Count 5.11 M/UL (4.20-5.40) Hemoglobin 11.7 G/DL (12.0-16.0) L Hematocrit 37.2 % (37.0-47.0) Mean Corpuscular Volume 73 FL (80-99) L Mean Corpuscular Hemoglobin 22.8 PG (27.0-31.0) L Mean Corpuscular Hemoglobin Concent 31.3 G/DL (32.0-36.0) L Red Cell Distribution Width 14.4 % (11.6-14.8) Platelet Count 329 K/UL (150-450) Mean Platelet Volume 6.3 FL (6.5-10.1) L Neutrophils (%) (Auto) 65.9 % (45.0-75.0) Lymphocytes (%) (Auto) 22.6 % (20.0-45.0) Monocytes (%) (Auto) 9.4 % (1.0-10.0) Eosinophils (%) (Auto) 1.3 % (0.0-3.0) Basophils (%) (Auto) 0.8 % (0.0-2.0) Sodium Level 141 MMOL/L (136-145) Potassium Level 3.8 MMOL/L (3.5-5.1) Chloride Level 103 MMOL/L (98-107) Carbon Dioxide Level 27 MMOL/L (21-32) Anion Gap 11 mmol/L (5-15) Blood Urea Nitrogen 9 mg/dL (7-18) Creatinine 0.7 MG/DL (0.55-1.30) Estimat Glomerular Filtration Rate > 60 mL/min (>60) Glucose Level 173 MG/DL (74-106) H Calcium Level 9.8 MG/DL (8.5-10.1) Total Bilirubin 0.6 MG/DL (0.2-1.0) Aspartate Amino Transf (AST/SGOT) 8 U/L (15-37) L Alanine Aminotransferase (ALT/SGPT) 21 U/L (12-78) Alkaline Phosphatase 97 U/L (46-116) Total Protein 7.8 G/DL (6.4-8.2) Albumin 3.6 G/DL (3.4-5.0) Globulin 4.2 g/dL Albumin/Globulin Ratio 0.9 (1.0-2.7) L Lipase 106 U/L (73-393) Urine Color Pale yellow Urine Appearance Clear Urine pH 8 (4.5-8.0) Urine Specific [place] 1.010 (1.005-1.035) Urine Protein Negative (NEGATIVE) Urine Glucose (UA) Negative (NEGATIVE) Urine Ketones Negative (NEGATIVE) Urine Occult Blood Negative (NEGATIVE) Urine Nitrite Negative (NEGATIVE) Urine Bilirubin Negative (NEGATIVE) Urine Urobilinogen Normal MG/DL (0.0-1.0) Urine Leukocyte Esterase Negative (NEGATIVE) Height (Feet): 5 Height (Inches): 1.00 Weight (Pounds): 139 Medications Current Medications Medications (Trade) Dose Ordered Sig/Jeannie Route PRN Reason Start Time Stop Time Status Last Admin Dose Admin Dextrose (Dextrose 50%) 25 ml STAT PRN IV Hypoglycemia 02/24/18 11:30 03/26/18 11:29 Dextrose (Dextrose 50%) 50 ml STAT PRN IV Hypoglycemia 02/24/18 11:30 03/26/18 11:29 Dextrose/Sodium Chloride 1,000 ml @ 75 mls/hr [id number] IV 02/24/18 11:10 03/26/18 11:09 Insulin Aspart (NovoLOG) BEFORE MEALS AND HS SUBQ 02/24/18 16:30 03/26/18 16:29 Iopamidol (Isovue-300 100ml) 100 ml NOW PRN INJ Radiology Procedure 02/23/18 23:30 Morphine Sulfate (Morphine Sulfate) 4 mg ONCE IVP 02/24/18 10:45 02/24/18 11:45 02/24/18 11:00 Morphine Sulfate (Morphine Sulfate) 4 mg Q3H PRN IVP Severe Pain (Pain Scale 7-10) 02/24/18 05:45 03/03/18 05:44 02/24/18 08:36 Assessment/Plan Assessment/Plan #SBO - hx colostomy w/ prior episodes of obs #s/p Colostomy #s/p Urostomy #DM2 #HTN #Hx Cervical cancer - admit to in pt - surgery consult - npo - NGT in place for decompression - mIVF - small bowel follow through - trend chem, cbc - insulin sliding scale q4h while NPO - hold metformin while in house - hyral ivpb prn for sbp > 160 - pain control - supportive care - GI ppx w/ H2b IV BID - DVT ppx: SCDs, HSQ BID - FULL CODE anticipate pt will require in pt mgt for 2-3 days, dc home + HH vs SNF once stable for discharge I spent 70 min on this case, 48 min was dedicated to counseling and or care coordination time of this note may not reflect time of clinical encounter Buddy Newell MD Feb 24, 2018 11:57
[2018-02-24] MEDS ORDERED: Acetaminophen 650 MG SUPP RECTAL PRN ×2 (12:00)
[2018-02-24] MEDS ORDERED: DiphenhydrAMINE 50mg/ml Inj IVP PRN (12:00)
[2018-02-24] MEDS ORDERED: Morphine Sulfate 2mg/ml Inj(IV/IM USE ONLY) IVP PRN (12:00)
[2018-02-24] MEDS ORDERED: Nitroglycerin 2% oint pkt TOPIC PRN (12:15)
[2018-02-24] MEDS: D5 1/2NS 1,000 ML IV SCH (12:17)
[2018-02-24] MEDS: HYDROmorphone 1mg/ml Carpuject IVP PRN ×3 (12:20→20:43)
[2018-02-24 12:30] VITALS: BP 145/73
--- NOTE | 2018-02-24 14:02 | Diagnostic Imaging Report ---
Indication: Abdominal pain Technique: CT of the abdomen and pelvis utilizing automated exposure control with intravenous contrast. Venous scanning performed. Axial, sagittal and coronal reformats presented. Please note name discrepancy between PACS and the electronic medical record. Patient was admitted with name of " Keisha Kim," the name under which her current studies are in PACs. Patient with recent visit on 02/09/18 with name of Keisha Haley. She has multiple prior imaging studies under this name. Patient's identity was confirmed with the treating nurse on the floor. IT has been alerted and working to fix this discrepancy. CT dose: Total DLP 552.05 mGycm; CTDI vol 11.53 mGy Comparison: Multiple prior CT scans of the abdomen with the most recent being on 02/09/2018 and 12/22/2017. Findings: There is dependent atelectasis in the lung bases. Heart size within normal limits. There is no pericardial effusion. Liver contour appears smooth. No focal hepatic mass lesion is appreciated on this single phase exam. Hepatic veins and portal veins appear patent. There is a tiny nonspecific punctate calcification of the liver capsule of the inferior right hepatic lobe. No biliary ductal dilatation. The adrenal glands are unremarkable. There is unchanged fatty atrophy of the pancreas. Extensive prior abdominal surgery including cystectomy, ureteral diversion with right lower quadrant ileostomy, colonic resection with left lower quadrant colostomy. There is interval increased dilatation of the ileal conduit compared to the exam of 02/09/2018, with abrupt caliber change of the conduit at the site of the right lower quadrant ostomy opening. Again noted is a parastomal hernia that contains of loops of small bowel which are intervally dilated. Degree of distention of the small bowel loops is increased compared to 02/09/2018 but similar compared to the exam of 12/22/2017. Again noted is a dilated, chronically fecalized loop of small bowel in the right lower quadrant with anastomotic sutures line running through. The terminal ileum and colon are normal in caliber. There is some focal fluid or mild inflammation adjacent to some of the dilated loops near the parastomal hernia. No free intraperitoneal air. No pneumatosis intestinalis or portal venous gas at this time. There is chronic dilatation of the bilateral renal collecting systems, unchanged compared to the prior exams. Kidneys enhance symmetrically. Abdominal aorta is normal in caliber. There are degenerative changes in the spine with unchanged anterolisthesis of L4 on L5. No acute osseous abnormality identified. IMPRESSION: Please note name discrepancy between PACS and the electronic medical record. Patient was admitted with name of " Keisha Macielrepool Kim," the name under which her current studies are in PACs. Patient with recent visit on 02/09/18 with name of Keisha Haley. She has multiple prior imaging studies under this name. * Extensive prior abdominal surgery with radical cystectomy, ureteral diversion with right lower quadrant ileal conduit and partial colonic resection and left lower quadrant colostomy. 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 Findings are concerning for a degree of obstruction, although similar findings were seen on the exam of 12/22/17 as well as multiple prior exams. The fact that the bowel was decompressed on the exam of 02/09/2018 raises question for degree of chronic intermittent obstruction or possible ileus. Clinical correlation/follow-up recommended. Additional findings as above. This corresponds with the preliminary report. Images reviewed in person with the consulting surgeon on 02/24/2018. The CT scanner at [facility] is accredited by the [employer] and the scans are performed using protocols designed to limit radiation exposure to as low as reasonably achievable to attain images of sufficient resolution adequate for diagnostic evaluation.
--- NOTE | 2018-02-24 14:41 | Diagnostic Imaging Report ---
Indication: Shortness of breath Technique: XRAY Chest 1v Comparison: None Findings: Heart size and mediastinal contours are within normal limits. There is no focal airspace consolidation, pleural effusion or pneumothorax. A nasogastric tube courses below level of the diaphragms. Tip obscured by the dense contrast in the stomach. IMPRESSION: No focal consolidation, effusion or pneumothorax. NG tube courses below level of diaphragm, tip obscured by dense contrast in the stomach
--- NOTE | 2018-02-24 15:25 | Diagnostic Imaging Report ---
Indication: Abdominal pain. Small bowel obstruction. Technique: Braille Transcriber view the abdomen obtained. Water soluble contrast material was administered orally. Subsequently abdominal radiographs were obtained at timed intervals. Imaging was carried out until 2 1/2 hours post administration of oral contrast. Comparison: Concurrent CT of the abdomen and pelvis. Findings: Braille Transcriber radiograph demonstrates an indwelling nasogastric tube. There is dilatation of small bowel loops in the mid/lower abdomen, consistent with findings of prior CT. There is a right lower quadrant left lower quadrant ostomy bags. Multiple surgical clips are noted in keeping with history of extensive abdominal surgery. Lung bases are clear. There are degenerative changes of the spine. There is no acute osseous abnormality. By one half hours contrast is noted within the dilated loops of small bowel related to the parastomal hernia involving the right lower quadrant ostomy. These are still visualized on the T2 half hour post administration images. No definite contrast noted within the colon on final image. IMPRESSION: No definite evidence of contrast passage past the area of obstruction related to the right lower quadrant parastomal hernia by 2 1/2 hours postcontrast administration. Plan for repeat CT scan at approximately 16:00 (approximately 5.5 to 6 hours post oral contrast administration).
[2018-02-24 16:06] VITALS: BP_SYST 130; BP_SYST 169; BP_DIAS 84
[2018-02-24] MEDS: NovoLOG Insulin Flexpen SUBQ SCH ×2 (16:14→20:45)
--- NOTE | 2018-02-24 16:23 | Diagnostic Imaging Report ---
Indication: Abdominal pain Technique: CT of the abdomen and pelvis utilizing automated exposure control without intravenous contrast. Oral contrast was administered earlier the day for small bowel follow-through. Axial, sagittal and coronal reformats presented. CT dose: Total DLP 608.85 mGycm; CTDI vol 12.5 mGy Comparison: CT scan of the abdomen earlier the same day. Additional comparison made to Multiple prior CT scans of the abdomen with the most recent being on 02/09/2018 and 12/22/2017. Findings: Dilated loops of small bowel to the level of the dilated loop of ileum with anastomotic suture line filled with dense stool in the right lower quadrant, similar to the prior exam (series 3 image 102). There is no evidence of obstruction at the level of the parastomal hernia. Instead there is evidence of slow passage through the above-mentioned dilated loop of ileum with significant stool burden. Again, the terminal ileum distal to this is normal in caliber. No contrast is noted traversing across this region into the colon as of yet. The volume of stool burden in the dilated loops of distal ileum appears similar to exam of 12/22/2017 but increased significantly compared to exam of 02/09/2018, where there is no associated small bowel dilatation. Contrast is noted within the right lower quadrant ostomy bag, suggesting functioning of the ileal conduit. Additional findings without significant interval change compared to exam a few hours prior. IMPRESSION: No evidence of obstruction at the level of the parastomal hernia. Instead, site of obstruction/slow transit is noted to be in the previously described dilated loop of distal ileum in the right lower quadrant which contains an anastomotic suture line. No contrast is noted traversing across this region into the colon as of yet. Of note, the volume of stool in this loop appears similar to exam of 12/22/2017, where there was similar upstream small bowel dilatation. Stool burden in this region is increased significantly compared to exam of 02/09/2018, where there was no associated small bowel dilatation. Findings discussed with ordering surgeon Dr. Garibay via telephone conversation approximately 4:00 PM on 02/24/2018. The CT scanner at [facility] is accredited by the [employer] and the scans are performed using protocols designed to limit radiation exposure to as low as reasonably achievable to attain images of sufficient resolution adequate for diagnostic evaluation.
[2018-02-24] MEDS ORDERED: Hydromorphone 0.5mg/0.5ml inj IVP PRN (18:30)
[2018-02-24 20:00] VITALS: BP 147/80
[2018-02-24] MEDS: Heparin 5000 units/ml inj SUBQ SCH (20:45)
[2018-02-25] VITALS: BP 133/68
[2018-02-25] MEDS: HYDROmorphone 1mg/ml Carpuject IVP PRN ×4 (00:57→20:55)
[2018-02-25] MEDS: D5 1/2NS 1,000 ML IV SCH ×2 (01:37→14:19)
[2018-02-25 04:00] VITALS: BP 121/60
[2018-02-25 06:09] LABS: HEMATOCRIT 35.4 % (37.0-47.0); MEAN CORPUSCULAR VOLUME 74 FL (80-99); PLATELET COUNT 296 K/UL (150-450); RED CELL DISTRIBUTION WIDTH 14.9 % (11.6-14.8); WHITE BLOOD COUNT 2.9 K/UL (4.8-10.8)
[2018-02-25] MEDS: NovoLOG Insulin Flexpen SUBQ SCH ×4 (06:17→21:16)
[2018-02-25 06:35] LABS: ALANINE AMINOTRANSFERASE 17 U/L (12-78); ALBUMIN 3.2 G/DL (3.4-5.0); ALBUMIN/GLOBULIN RATIO 0.8 (1.0-2.7); ALKALINE PHOSPHATASE 83 U/L (46-116); ANION GAP 9 mmol/L (5-15); ASPARTATE AMINO TRANSFERASE 12 U/L (15-37); BILIRUBIN,TOTAL 0.6 MG/DL (0.2-1.0); BLOOD UREA NITROGEN 21 mg/dL (7-18); CALCIUM 9.1 MG/DL (8.5-10.1); CARBON DIOXIDE 28 MMOL/L (21-32); CHLORIDE 105 MMOL/L (98-107); CREATININE 0.7 MG/DL (0.55-1.30); POTASSIUM 3.9 MMOL/L (3.5-5.1); SODIUM 142 MMOL/L (136-145)
[2018-02-25 08:00] VITALS: BP 127/56
[2018-02-25] MEDS: Heparin 5000 units/ml inj SUBQ SCH ×2 (08:04→20:59)
[2018-02-25 12:00] VITALS: BP 126/61
--- NOTE | 2018-02-25 14:58 | General Surgery Progress Note ---
General Surgery-Progress Note Objective Last 24 Hour Vital Signs Date Time Temp Pulse Resp B/P (MAP) Pulse Ox O2 Delivery O2 Flow Rate FiO2 02/25/18 12:00 98.0 74 18 126/61 (82) 98 98.0 02/25/18 09:00 Room Air 02/25/18 08:00 99.0 76 18 127/56 (79) 99 99.0 02/25/18 04:00 97.0 77 20 121/60 (80) 97 97.0 02/25/18 00:00 97.2 87 20 133/68 (89) 97 97.2 02/24/18 21:00 Room Air 02/24/18 20:00 97.3 98 19 147/80 (102) 97 97.3 02/24/18 16:06 97.4 87 20 130/84 (99) 98 97.4 I&O Intake and Output 02/24/18 02/25/18 19:00 07:00 Intake Total 300 ml Output Total 1500 ml Balance -1500 ml 300 ml IV Total 300 ml Gastric Drainage Total 1500 ml # Voids 1 Respiratory: clear Abdomen: soft, flat, non-tender, other - hypoactive BS no BM Extremities: no tenderness Laboratory Tests Test 02/25/18 05:20 White Blood Count 2.9 K/UL (4.8-10.8) L Red Blood Count 4.80 M/UL (4.20-5.40) Hemoglobin 11.0 G/DL (12.0-16.0) L Hematocrit 35.4 % (37.0-47.0) L Mean Corpuscular Volume 74 FL (80-99) L Mean Corpuscular Hemoglobin 22.9 PG (27.0-31.0) L Mean Corpuscular Hemoglobin Concent 31.0 G/DL (32.0-36.0) L Red Cell Distribution Width 14.9 % (11.6-14.8) H Platelet Count 296 K/UL (150-450) Mean Platelet Volume 6.1 FL (6.5-10.1) L Neutrophils (%) (Auto) % (45.0-75.0) Lymphocytes (%) (Auto) % (20.0-45.0) Monocytes (%) (Auto) % (1.0-10.0) Eosinophils (%) (Auto) % (0.0-3.0) Basophils (%) (Auto) % (0.0-2.0) Differential Total Cells Counted 100 Neutrophils % (Manual) 38 % (45-75) L Lymphocytes % (Manual) 16 % (20-45) L Monocytes % (Manual) 18 % (1-10) H Eosinophils % (Manual) 0 % (0-3) Basophils % (Manual) 0 % (0-2) Metamyelocytes % 1 % (0-0) H Band Neutrophils 27 % (0-8) H Platelet Estimate Adequate Platelet Morphology Normal Hypochromasia 1+ Anisocytosis 1+ Microcytosis 2+ Sodium Level 142 MMOL/L (136-145) Potassium Level 3.9 MMOL/L (3.5-5.1) Chloride Level 105 MMOL/L (98-107) Carbon Dioxide Level 28 MMOL/L (21-32) Anion Gap 9 mmol/L (5-15) Blood Urea Nitrogen 21 mg/dL (7-18) H Creatinine 0.7 MG/DL (0.55-1.30) Estimat Glomerular Filtration Rate > 60 mL/min (>60) Glucose Level 339 MG/DL (74-106) #H Hemoglobin A1c 7.7 % (4.3-6.0) H Calcium Level 9.1 MG/DL (8.5-10.1) Total Bilirubin 0.6 MG/DL (0.2-1.0) Aspartate Amino Transf (AST/SGOT) 12 U/L (15-37) L Alanine Aminotransferase (ALT/SGPT) 17 U/L (12-78) Alkaline Phosphatase 83 U/L (46-116) Total Protein 7.3 G/DL (6.4-8.2) Albumin 3.2 G/DL (3.4-5.0) L Globulin 4.1 g/dL Albumin/Globulin Ratio 0.8 (1.0-2.7) L Assessment Additional Comments SBO Plan Additional Comments Conservative treatment Elijah Garibay MD Feb 25, 2018 14:58
--- NOTE | 2018-02-25 15:28 | General Progress Note ---
Assessment/Plan Assessment/Plan #SBO - hx colostomy w/ prior episodes of obs #s/p Colostomy #s/p Urostomy #DM2 #HTN #Hx Cervical cancer - surgery consult, recommends conservative mgt at this time - npo - NGT in place for decompression - mIVF - small bowel follow through - trend chem, cbc - insulin sliding scale q4h while NPO - hold metformin while in house - hyral ivpb prn for sbp > 160 - pain control - supportive care - GI ppx w/ H2b IV BID - DVT ppx: SCDs, HSQ BID - FULL CODE anticipate pt will require in pt mgt for 2-3 days, dc home + HH vs SNF once stable for discharge I spent 44 min on this case, 25 min was dedicated to counseling and or care coordination time of this note may not reflect time of clinical encounter Subjective Date patient seen: Feb 25, 2018 Allergies: Coded Allergies: METOCLOPRAMIDE (Verified Allergy, Unknown, 05/08/11) Subjective no acute events afebrile and hds pain meds increased Objective Last 24 Hour Vital Signs Date Time Temp Pulse Resp B/P (MAP) Pulse Ox O2 Delivery O2 Flow Rate FiO2 02/25/18 12:00 98.0 74 18 126/61 (82) 98 98.0 02/25/18 09:00 Room Air 02/25/18 08:00 99.0 76 18 127/56 (79) 99 99.0 02/25/18 04:00 97.0 77 20 121/60 (80) 97 97.0 02/25/18 00:00 97.2 87 20 133/68 (89) 97 97.2 02/24/18 21:00 Room Air 02/24/18 20:00 97.3 98 19 147/80 (102) 97 97.3 02/24/18 16:06 97.4 87 20 130/84 (99) 98 97.4 Intake and Output 02/24/18 02/25/18 19:00 07:00 Intake Total 300 ml Output Total 1500 ml Balance -1500 ml 300 ml IV Total 300 ml Gastric Drainage Total 1500 ml # Voids 1 Laboratory Tests 02/25/18 05:20: White Blood Count 2.9L, Red Blood Count 4.80, Hemoglobin 11.0L, Hematocrit 35.4L , Mean Corpuscular Volume 74L, Mean Corpuscular Hemoglobin 22.9L, Mean Corpuscular Hemoglobin Concent 31.0L, Red Cell Distribution Width 14.9H, Platelet Count 296, Mean Platelet Volume 6.1L, Neutrophils (%) (Auto) , Lymphocytes (%) (Auto) , Monocytes (%) (Auto) , Eosinophils (%) (Auto) , Basophils (%) (Auto) , Differential Total Cells Counted 100, Neutrophils % ( Manual) 38L, Lymphocytes % (Manual) 16L, Monocytes % (Manual) 18H, Eosinophils % (Manual) 0, Basophils % (Manual) 0, Metamyelocytes % 1H, Band Neutrophils 27H , Platelet Estimate Adequate, Platelet Morphology Normal, Hypochromasia 1+, Anisocytosis 1+, Microcytosis 2+, Sodium Level 142, Potassium Level 3.9, Chloride Level 105, Carbon Dioxide Level 28, Anion Gap 9, Blood Urea Nitrogen 21H, Creatinine 0.7, Estimat Glomerular Filtration Rate > 60, Glucose Level 339# H, Hemoglobin A1c 7.7H, Calcium Level 9.1, Total Bilirubin 0.6, Aspartate Amino Transf (AST/SGOT) 12L, Alanine Aminotransferase (ALT/SGPT) 17, Alkaline Phosphatase 83, Total Protein 7.3, Albumin 3.2L, Globulin 4.1, Albumin/Globulin Ratio 0.8L IMAGING: XRAY Small Bowel w/Gastrografi 02/24 - IMPRESSION: No definite evidence of contrast passage past the area of obstruction related to the right lower quadrant parastomal hernia by 2 1/[address] abd/p 02/24 - IMPRESSION: No evidence of obstruction at the level of the parastomal hernia. Instead, site of obstruction/slow transit is noted to be in the previously described dilated loop of distal ileum in the right lower quadrant which contains an anastomotic suture line. No contrast is noted traversing across this region into the colon as of yet. Of note, the volume of stool in this loop appears similar to exam of 12/22/2017, where there was similar upstream small bowel dilatation. Stool burden in this region is increased significantly compared to exam of 02/09/2018, where there was no associated small bowel dilatation. Findings discussed with ordering surgeon Dr. Garibay via telephone conversation approximately 4:00 PM on 02/24/2018. The CT scanner at [facility] is accredited by the [employer] and the scans are performed using protocols designed to limit radiation exposure to as low as reasonably achievable to attain images of sufficient resolution adequate for diagnostic evaluation. Height (Feet): 5 Height (Inches): 1.00 Weight (Pounds): 139 Buddy Newell MD Feb 25, 2018 15:28
[2018-02-25 16:00] VITALS: BP 133/68
[2018-02-25] MEDS ORDERED: Miralax 17gm pkt ORAL SCH (16:00)
--- NOTE | 2018-02-25 16:15 | Diagnostic Imaging Report ---
Clinical indication: Abdominal pain TECHNIQUE: One view of the abdomen Comparison: 02/24/2018, also manager of internal audit image from CT scan November 24, 2017 Findings: Interim transit of contrast into the colon. Small amount of residual contrast and small bowel feces are seen in the previously described right lower quadrant small bowel loop, which is less distended and contains less feces and previously. Right upper quadrant small bowel loops are slightly prominent, gas-filled. Nasogastric tube is again demonstrated, coiled in the gastric fundus. Impression: There are mildly dilated right mid abdominal gas-filled small bowel loops. However, since 02/24/2018, interim transit of nearly all of the ingested contrast into the colon. There is also decreased contrast and stool within the previously distended right right pelvic small bowel loop, indicating that the degree of obstruction, if any, is minimal Other findings as noted Dr. Garibay notified by phone of the findings at the time of interpretation
--- NOTE | 2018-02-25 19:21 | Consultation ---
Consult Note Assessment/Plan HEMATOLOGY/ONCOLOGY CONSULTATION CONSULTING PHYSICIAN: Torrey Caballero M.D. REFERRING PHYSICIAN: Reece Goodwin M.D. REASON FOR CONSULTATION: Cervical cancer and anemia. (Patient seen on prior admission) DOS: 02/25/18 HISTORY OF PRESENT ILLNESS: (Patient seen on prior admission) The patient is an extremely pleasant, unfortunate 62-year-old female with a history of cervical cancer that is going back to 2003. Apparently, at that time , the patient was evaluated at [facility] [place]. The patient did undergo extensive surgery requiring ostomy as well as urostomy. The patient did undergo apparently chemotherapy and radiation. The patient does not recall the exact course of radiation and chemotherapy or the name of the doctor, who actually treated her. The patient apparently has been followed up closely at the [facility] on yearly basis. The patient does not recall any known history of recurrence of disease. The patient currently has abd pain to have significant abdominal pain for approximately 1 day. The patient is concerned about possibility of any intra-abdominal pathology related to cancer, radiation, or other issues. The patient apparently was complaining of her reports of other consultants on admission 05/04. given dialudid and now pain better Currently, the patient does not have any abdominal pain. PAST MEDICAL HISTORY: History of cervical cancer, status post extensive surgery , ostomy, colostomy, as well as urine diversion with urinary bag in place on the abdominal wall. History of diabetes, history of chronic intermittent abdominal pain, and history of hypertension. PAST SURGICAL HISTORY: As above. ALLERGIES: No drug allergies that the patient recalls. FAMILY HISTORY: The patient does not have any cancer in the family. SOCIAL HISTORY: The patient denies any tobacco, alcohol, or drugs. The patient resides at home. REVIEW OF SYSTEMS: CONSTITUTIONAL: The patient denies any headaches, vision changes, or hearing loss. PULMONARY: The patient denies any shortness of breath or cough. The patient denies any pleuritic chest pain. NEUROLOGIC: The patient has no focal weakness or numbness. SKIN: The patient denies any bruising or petechiae. ABDOMEN: The patient does have an ostomy in place. The patient did have significant abdominal pain on admission, currently significantly improved. GENITOURINARY: The patient does have a urinary diversion with urinary bag in place. PHYSICAL EXAMINATION: GENERAL: The patient is a well-developed female, VITAL SIGNS: Temperature of 98 degrees, pulse of 68, breathing at 20 HEENT: Sclerae anicteric. CHEST: Clear to auscultation with no rhonchi noted. ABDOMEN: Soft. Minimally tender around the ostomy area, however, no rebound or guarding whatsoever. There is an ostomy placed with brown soft stool in place. No blood noted. There is also a urinary diversion bag with clear mildly yellowish urine with no cloudiness. EXTREMITIES: There is no cyanosis, clubbing, or edema. LYMPH NODES: There is no cervical, supraclavicular axillary, or groin adenopathy. LABORATORY AND DIAGNOSTIC DATA: Laboratory as well as investigations includes a white count of 2.6, hemoglobin of 11, and platelet count of 311,000. CT scan of the abdomen and pelvis was done. The report has been evaluated, discussed with the patient, as well as the nursing staff, Rustam. The study demonstrated a mild dilation of the ileal conduit, which appeared to be at the ostomy site in the right lower quadrant. This is chronic phenomenon has been present on multiple prior studies. ASSESSMENT AND PLAN: #. Cervical cancer, status post extensive course of surgery, chemotherapy, and radiation. The patient is currently with no evidence of disease on the CT scan. The patient is being followed by her physicians at the [facility]. I have had extensive discussion with the patient. I have reassured her that the CT scan does not demonstrate based on the radiologist's report any evidence of disease. The patient does have significant abd abdominal pain, has been recurrent, seen by gi and surgery. In the future, the patient needs to be evaluated by the surgical team at the [facility] --> Rec clinical examination by INFORMATION SYSTEMS SECURITY ANALYST Oncology at a the [facility]. --> hold off on sending any tumor markers, of limited clinical benefit #. Anemia of iron deficiency, mild. The patient has been followed in this regard. In past had low ferritin. --> The patient's iron and ferritin needs to be evaluated. If ferritin low, for now monitor --> appreciate gastrointestinal evaluation. The patient continues to have #. Leukopenia is likely related to reactive process, hepatitis and hiv negative before --> smear reviewed, no major abnormaltiies noted --> consider neupogen x 1 dose if leukopenia worsens #. Abdominal pain, currently significantly improved. No evidence of obstruction based on the CT scan. The patient has been followed up by multiple teams here in the hospital. --> appreciate Torrey Cordero MD Feb 25, 2018 19:21
[2018-02-25 20:00] VITALS: BP 124/71
--- NOTE | 2018-02-25 20:05 | General Progress Note ---
Assessment/Plan Assessment/Plan GI Consult Assessment - PSBO - s/p cervical CA surgery, f/b Chemo and XRT - XRT injury --> subsequent colostomy and urinary diversion - Iron deficiency anemia Recommendations - NPO - follow lab and exam - surgical f/u - outpatient EGD / Colon Thank you Claudio Michelle Subjective Allergies: Coded Allergies: METOCLOPRAMIDE (Verified Allergy, Unknown, 05/08/11) Objective Last 24 Hour Vital Signs Date Time Temp Pulse Resp B/P (MAP) Pulse Ox O2 Delivery O2 Flow Rate FiO2 02/25/18 16:00 98.7 67 17 133/68 (89) 97 98.7 02/25/18 12:00 98.0 74 18 126/61 (82) 98 98.0 02/25/18 09:00 Room Air 02/25/18 08:00 99.0 76 18 127/56 (79) 99 99.0 02/25/18 04:00 97.0 77 20 121/60 (80) 97 97.0 02/25/18 00:00 97.2 87 20 133/68 (89) 97 97.2 02/24/18 21:00 Room Air 02/24/18 20:00 97.3 98 19 147/80 (102) 97 97.3 Intake and Output 02/24/18 02/25/18 19:00 07:00 Intake Total 300 ml Output Total 1500 ml Balance -1500 ml 300 ml IV Total 300 ml Gastric Drainage Total 1500 ml # Voids 1 Laboratory Tests 02/25/18 05:20: White Blood Count 2.9L, Red Blood Count 4.80, Hemoglobin 11.0L, Hematocrit 35.4L , Mean Corpuscular Volume 74L, Mean Corpuscular Hemoglobin 22.9L, Mean Corpuscular Hemoglobin Concent 31.0L, Red Cell Distribution Width 14.9H, Platelet Count 296, Mean Platelet Volume 6.1L, Neutrophils (%) (Auto) , Lymphocytes (%) (Auto) , Monocytes (%) (Auto) , Eosinophils (%) (Auto) , Basophils (%) (Auto) , Differential Total Cells Counted 100, Neutrophils % ( Manual) 38L, Lymphocytes % (Manual) 16L, Monocytes % (Manual) 18H, Eosinophils % (Manual) 0, Basophils % (Manual) 0, Metamyelocytes % 1H, Band Neutrophils 27H , Platelet Estimate Adequate, Platelet Morphology Normal, Hypochromasia 1+, Anisocytosis 1+, Microcytosis 2+, Sodium Level 142, Potassium Level 3.9, Chloride Level 105, Carbon Dioxide Level 28, Anion Gap 9, Blood Urea Nitrogen 21H, Creatinine 0.7, Estimat Glomerular Filtration Rate > 60, Glucose Level 339# H, Hemoglobin A1c 7.7H, Calcium Level 9.1, Total Bilirubin 0.6, Aspartate Amino Transf (AST/SGOT) 12L, Alanine Aminotransferase (ALT/SGPT) 17, Alkaline Phosphatase 83, Total Protein 7.3, Albumin 3.2L, Globulin 4.1, Albumin/Globulin Ratio 0.8L Height (Feet): 5 Height (Inches): 1.00 Weight (Pounds): 139 Guy Michelle MD Feb 25, 2018 20:05
[2018-02-26] VITALS: BP 131/63
[2018-02-26 04:00] VITALS: BP 136/68
[2018-02-26 06:18] LABS: BASOPHILS % (AUTO) 0.5 % (0.0-2.0); EOSINOPHILS % (AUTO) 3.6 % (0.0-3.0); HEMATOCRIT 31.2 % (37.0-47.0); LYMPHOCYTES % (AUTO) 23.8 % (20.0-45.0); MEAN CORPUSCULAR VOLUME 74 FL (80-99); MONOCYTES % (AUTO) 12.8 % (1.0-10.0); NEUTROPHILS % (AUTO) 59.3 % (45.0-75.0); PLATELET COUNT 235 K/UL (150-450); RED CELL DISTRIBUTION WIDTH 14.6 % (11.6-14.8); WHITE BLOOD COUNT 5.3 K/UL (4.8-10.8)
[2018-02-26] MEDS: D5 1/2NS 1,000 ML IV SCH ×2 (06:29→17:14)
[2018-02-26] MEDS: NovoLOG Insulin Flexpen SUBQ SCH ×4 (06:34→22:09)
[2018-02-26 06:54] LABS: ALANINE AMINOTRANSFERASE 14 U/L (12-78); ALBUMIN 2.8 G/DL (3.4-5.0); ALBUMIN/GLOBULIN RATIO 0.7 (1.0-2.7); ALKALINE PHOSPHATASE 67 U/L (46-116); ANION GAP 7 mmol/L (5-15); ASPARTATE AMINO TRANSFERASE 11 U/L (15-37); BILIRUBIN,TOTAL 0.4 MG/DL (0.2-1.0); BLOOD UREA NITROGEN 22 mg/dL (7-18); CALCIUM 8.8 MG/DL (8.5-10.1); CARBON DIOXIDE 29 MMOL/L (21-32); CHLORIDE 109 MMOL/L (98-107); CREATININE 0.7 MG/DL (0.55-1.30); POTASSIUM 3.7 MMOL/L (3.5-5.1); SODIUM 145 MMOL/L (136-145)
[2018-02-26 08:00] VITALS: BP 132/70
[2018-02-26] MEDS: Heparin 5000 units/ml inj SUBQ SCH ×2 (09:00→21:00)
--- NOTE | 2018-02-26 09:16 | General Progress Note ---
Assessment/Plan Assessment/Plan Assessment - PSBO - s/p cervical CA surgery, f/b Chemo and XRT - XRT injury --> subsequent colostomy and urinary diversion - Iron deficiency anemia Recommendations - start clears - follow lab and exam - surgical f/u - outpatient EGD / Colon Subjective ROS Limited/Unobtainable: Yes Allergies: Coded Allergies: METOCLOPRAMIDE (Verified Allergy, Unknown, 05/08/11) Subjective had bm Objective Last 24 Hour Vital Signs Date Time Temp Pulse Resp B/P (MAP) Pulse Ox O2 Delivery O2 Flow Rate FiO2 02/26/18 08:00 98.3 57 19 132/70 (90) 98 98.3 02/26/18 04:00 98.4 55 18 136/68 (90) 97 98.4 02/26/18 00:00 98.2 64 18 131/63 (85) 95 98.2 02/25/18 21:25 97.1 02/25/18 21:00 Room Air 02/25/18 20:55 97.1 02/25/18 20:00 97.1 55 19 124/71 (88) 99 97.1 02/25/18 16:00 98.7 67 17 133/68 (89) 97 98.7 02/25/18 12:00 98.0 74 18 126/61 (82) 98 98.0 Intake and Output 02/25/18 02/26/18 19:00 07:00 Output Total 500 ml 650 ml Balance -500 ml -650 ml Stool Total 0 ml Gastric Drainage Total 500 ml 650 ml Laboratory Tests 02/26/18 03:00: Stool Occult Blood Positive 02/26/18 05:35: White Blood Count 5.3#, Red Blood Count 4.20, Hemoglobin 10.0L, Hematocrit 31.2L , Mean Corpuscular Volume 74L, Mean Corpuscular Hemoglobin 23.7L, Mean Corpuscular Hemoglobin Concent 31.9L, Red Cell Distribution Width 14.6, Platelet Count 235, Mean Platelet Volume 6.7, Neutrophils (%) (Auto) 59.3, Lymphocytes (%) (Auto) 23.8, Monocytes (%) (Auto) 12.8H, Eosinophils (%) (Auto) 3.6H, Basophils (%) (Auto) 0.5, Sodium Level 145, Potassium Level 3.7, Chloride Level 109H, Carbon Dioxide Level 29, Anion Gap 7, Blood Urea Nitrogen 22H, Creatinine 0.7, Estimat Glomerular Filtration Rate > 60, Glucose Level 185#H, Calcium Level 8.8, Ferritin 27, Total Bilirubin 0.4, Aspartate Amino Transf (AST /SGOT) 11L, Alanine Aminotransferase (ALT/SGPT) 14, Alkaline Phosphatase 67, Total Protein 6.6, Albumin 2.8L, Globulin 3.8, Albumin/Globulin Ratio 0.7L Height (Feet): 5 Height (Inches): 1.00 Weight (Pounds): 139 General Appearance: alert EENT: PERRL/EOMI Neck: supple Cardiovascular: normal rate Respiratory/Chest: lungs clear Abdomen: soft, hypoactive bowel sounds Extremities: non-tender Edmond Garcia MD Feb 26, 2018 09:16
--- NOTE | 2018-02-26 10:23 | General Surgery Progress Note ---
General Surgery-Progress Note Subjective Symptoms: improved, pain absent, BM Objective Last 24 Hour Vital Signs Date Time Temp Pulse Resp B/P (MAP) Pulse Ox O2 Delivery O2 Flow Rate FiO2 02/26/18 08:00 98.3 57 19 132/70 (90) 98 98.3 02/26/18 04:00 98.4 55 18 136/68 (90) 97 98.4 02/26/18 00:00 98.2 64 18 131/63 (85) 95 98.2 02/25/18 21:25 97.1 02/25/18 21:00 Room Air 02/25/18 20:55 97.1 02/25/18 20:00 97.1 55 19 124/71 (88) 99 97.1 02/25/18 16:00 98.7 67 17 133/68 (89) 97 98.7 02/25/18 12:00 98.0 74 18 126/61 (82) 98 98.0 I&O Intake and Output 02/25/18 02/26/18 19:00 07:00 Output Total 500 ml 650 ml Balance -500 ml -650 ml Stool Total 0 ml Gastric Drainage Total 500 ml 650 ml Respiratory: clear Abdomen: soft, flat, non-tender, present bowel sounds Laboratory Tests Test 02/26/18 03:00 02/26/18 05:35 Stool Occult Blood Positive (NEGATIVE) White Blood Count 5.3 K/UL (4.8-10.8) # Red Blood Count 4.20 M/UL (4.20-5.40) Hemoglobin 10.0 G/DL (12.0-16.0) L Hematocrit 31.2 % (37.0-47.0) L Mean Corpuscular Volume 74 FL (80-99) L Mean Corpuscular Hemoglobin 23.7 PG (27.0-31.0) L Mean Corpuscular Hemoglobin Concent 31.9 G/DL (32.0-36.0) L Red Cell Distribution Width 14.6 % (11.6-14.8) Platelet Count 235 K/UL (150-450) Mean Platelet Volume 6.7 FL (6.5-10.1) Neutrophils (%) (Auto) 59.3 % (45.0-75.0) Lymphocytes (%) (Auto) 23.8 % (20.0-45.0) Monocytes (%) (Auto) 12.8 % (1.0-10.0) H Eosinophils (%) (Auto) 3.6 % (0.0-3.0) H Basophils (%) (Auto) 0.5 % (0.0-2.0) Sodium Level 145 MMOL/L (136-145) Potassium Level 3.7 MMOL/L (3.5-5.1) Chloride Level 109 MMOL/L (98-107) H Carbon Dioxide Level 29 MMOL/L (21-32) Anion Gap 7 mmol/L (5-15) Blood Urea Nitrogen 22 mg/dL (7-18) H Creatinine 0.7 MG/DL (0.55-1.30) Estimat Glomerular Filtration Rate > 60 mL/min (>60) Glucose Level 185 MG/DL (74-106) #H Calcium Level 8.8 MG/DL (8.5-10.1) Ferritin 27 NG/ML (8-388) Total Bilirubin 0.4 MG/DL (0.2-1.0) Aspartate Amino Transf (AST/SGOT) 11 U/L (15-37) L Alanine Aminotransferase (ALT/SGPT) 14 U/L (12-78) Alkaline Phosphatase 67 U/L (46-116) Total Protein 6.6 G/DL (6.4-8.2) Albumin 2.8 G/DL (3.4-5.0) L Globulin 3.8 g/dL Albumin/Globulin Ratio 0.7 (1.0-2.7) L Assessment Additional Comments SBO resolved Plan Additional Comments Elijah Ivy MD Feb 26, 2018 10:22
[2018-02-26] MEDS: HYDROmorphone 1mg/ml Carpuject IVP PRN ×2 (11:35→22:07)
[2018-02-26 12:00] VITALS: BP 149/70
--- NOTE | 2018-02-26 15:09 | General Progress Note ---
Assessment/Plan Status: progressing Assessment/Plan #PSBO - resolving #Acute anemia due to GI bleed - Hb drop w/ FOBT pos, no melena #s/p Colostomy #s/p Urostomy #DM2 #HTN #Hx Cervical cancer - close hemodynamic monitoring - surgery consult, recommends conservative mgt at this time - GI consult, appreciate recs - s/p NGT removal - diet per surg/gi - mIVF - trend chem, cbc - insulin sliding scale - hold metformin while in house - hyral ivpb prn for sbp > 160 - pain control - supportive care - GI ppx w/ H2b IV BID - DVT ppx: SCDs, HSQ BID - FULL CODE anticipate pt will require in pt mgt for 2-3 days, dc home + HH vs SNF once stable for discharge I spent 44 min on this case, 25 min was dedicated to counseling and or care coordination time of this note may not reflect time of clinical encounter Subjective Date patient seen: Feb 26, 2018 Allergies: Coded Allergies: METOCLOPRAMIDE (Verified Allergy, Unknown, 05/08/11) All Systems: reviewed and negative except above Subjective no acute events afebrile and hds psbo resolving NGT out Tolerating some PO Hb drop 11 ->10 w/ FOBT positive GI and Surgery following Objective Last 24 Hour Vital Signs Date Time Temp Pulse Resp B/P (MAP) Pulse Ox O2 Delivery O2 Flow Rate FiO2 02/26/18 12:00 98.4 67 20 149/70 (96) 96 98.4 02/26/18 08:30 Room Air 02/26/18 08:00 98.3 57 19 132/70 (90) 98 98.3 02/26/18 04:00 98.4 55 18 136/68 (90) 97 98.4 02/26/18 00:00 98.2 64 18 131/63 (85) 95 98.2 02/25/18 21:25 97.1 02/25/18 21:00 Room Air 02/25/18 20:55 97.1 02/25/18 20:00 97.1 55 19 124/71 (88) 99 97.1 02/25/18 16:00 98.7 67 17 133/68 (89) 97 98.7 Intake and Output 02/25/18 02/26/18 19:00 07:00 Output Total 500 ml 650 ml Balance -500 ml -650 ml Stool Total 0 ml Gastric Drainage Total 500 ml 650 ml Laboratory Tests 02/26/18 03:00: Stool Occult Blood Positive 02/26/18 05:35: White Blood Count 5.3#, Red Blood Count 4.20, Hemoglobin 10.0L, Hematocrit 31.2L , Mean Corpuscular Volume 74L, Mean Corpuscular Hemoglobin 23.7L, Mean Corpuscular Hemoglobin Concent 31.9L, Red Cell Distribution Width 14.6, Platelet Count 235, Mean Platelet Volume 6.7, Neutrophils (%) (Auto) 59.3, Lymphocytes (%) (Auto) 23.8, Monocytes (%) (Auto) 12.8H, Eosinophils (%) (Auto) 3.6H, Basophils (%) (Auto) 0.5, Sodium Level 145, Potassium Level 3.7, Chloride Level 109H, Carbon Dioxide Level 29, Anion Gap 7, Blood Urea Nitrogen 22H, Creatinine 0.7, Estimat Glomerular Filtration Rate > 60, Glucose Level 185#H, Calcium Level 8.8, Ferritin 27, Total Bilirubin 0.4, Aspartate Amino Transf (AST /SGOT) 11L, Alanine Aminotransferase (ALT/SGPT) 14, Alkaline Phosphatase 67, Total Protein 6.6, Albumin 2.8L, Globulin 3.8, Albumin/Globulin Ratio 0.7L Height (Feet): 5 Height (Inches): 1.00 Weight (Pounds): 139 Objective General Appearance: WD/WN, alert, moderate distress HEENT: normocephalic, atraumatic, anicteric, mucous membranes moist, PERRL Neck: supple Respiratory/Chest: chest wall non-tender, lungs clear, normal breath sounds, no respiratory distress, no accessory muscle use, respiratory distress Cardiovascular/Chest: normal peripheral pulses, normal rate, regular rhythm, regularly irregular, no gallop/murmur, no JVD Abdomen: other - colostomy & urostomy in place. no colostomy output. distended abdomen. tympanic to precussion. absent bowel sounds. Extremities: non-tender, normal inspection, non-pitting Neurologic: scientific database curator II-XII grossly normal, no motor/sensory deficits, abnormal gait , alert, oriented x 3 Buddy Newell MD Feb 26, 2018 15:09
[2018-02-26 16:00] VITALS: BP 117/74
[2018-02-26 16:36] LABS: EOSINOPHILS % (AUTO) 2.3 % (0.0-3.0); HEMOGLOBIN 9.8 G/DL (12.0-16.0); LYMPHOCYTES % (AUTO) 30.7 % (20.0-45.0); MEAN CORPUSCULAR VOLUME 73 FL (80-99); MONOCYTES % (AUTO) 9.4 % (1.0-10.0); NEUTROPHILS % (AUTO) 56.6 % (45.0-75.0); PLATELET COUNT 254 K/UL (150-450); RED BLOOD COUNT 4.26 M/UL (4.20-5.40); RED CELL DISTRIBUTION WIDTH 14.6 % (11.6-14.8); WHITE BLOOD COUNT 6.2 K/UL (4.8-10.8)
[2018-02-26] MEDS: Docusate Sod/Senna tab ORAL SCH (17:16)
[2018-02-26 20:00] VITALS: BP 144/69
[2018-02-27] VITALS: BP 144/72
[2018-02-27 00:22] LABS: BASOPHILS % (AUTO) 0.6 % (0.0-2.0); HEMATOCRIT 29.2 % (37.0-47.0); HEMOGLOBIN 9.1 G/DL (12.0-16.0); LYMPHOCYTES % (AUTO) 27.6 % (20.0-45.0); MEAN CORPUSCULAR VOLUME 73 FL (80-99); MONOCYTES % (AUTO) 12.1 % (1.0-10.0); NEUTROPHILS % (AUTO) 56.7 % (45.0-75.0); PLATELET COUNT 235 K/UL (150-450); RED BLOOD COUNT 3.99 M/UL (4.20-5.40); RED CELL DISTRIBUTION WIDTH 14.2 % (11.6-14.8); WHITE BLOOD COUNT 5.8 K/UL (4.8-10.8)
[2018-02-27 04:00] VITALS: BP 154/71
[2018-02-27] MEDS: D5 1/2NS 1,000 ML IV SCH (06:05)
[2018-02-27] MEDS: NovoLOG Insulin Flexpen SUBQ SCH ×2 (06:06→12:06)
[2018-02-27] MEDS: HYDROmorphone 1mg/ml Carpuject IVP PRN (06:21)
[2018-02-27 07:49] LABS: EOSINOPHILS % (AUTO) 2.7 % (0.0-3.0); HEMOGLOBIN 9.6 G/DL (12.0-16.0); LYMPHOCYTES % (AUTO) 23.5 % (20.0-45.0); MEAN CORPUSCULAR VOLUME 74 FL (80-99); MONOCYTES % (AUTO) 10.3 % (1.0-10.0); NEUTROPHILS % (AUTO) 62.5 % (45.0-75.0); PLATELET COUNT 242 K/UL (150-450); RED BLOOD COUNT 4.17 M/UL (4.20-5.40); RED CELL DISTRIBUTION WIDTH 14.5 % (11.6-14.8); WHITE BLOOD COUNT 5.6 K/UL (4.8-10.8)
[2018-02-27 08:00] VITALS: BP 142/60
[2018-02-27 08:23] LABS: ALANINE AMINOTRANSFERASE 14 U/L (12-78); ALBUMIN 2.8 G/DL (3.4-5.0); ALBUMIN/GLOBULIN RATIO 0.8 (1.0-2.7); ALKALINE PHOSPHATASE 65 U/L (46-116); ANION GAP 8 mmol/L (5-15); ASPARTATE AMINO TRANSFERASE 12 U/L (15-37); BILIRUBIN,TOTAL 0.3 MG/DL (0.2-1.0); BLOOD UREA NITROGEN 10 mg/dL (7-18); CALCIUM 8.4 MG/DL (8.5-10.1); CARBON DIOXIDE 26 MMOL/L (21-32); CHLORIDE 107 MMOL/L (98-107); CREATININE 0.7 MG/DL (0.55-1.30); POTASSIUM 3.5 MMOL/L (3.5-5.1); SODIUM 141 MMOL/L (136-145)
[2018-02-27] MEDS: Docusate Sod/Senna tab ORAL SCH (08:30)
[2018-02-27] MEDS: Heparin 5000 units/ml inj SUBQ SCH (08:33)
[2018-02-27] MEDS ORDERED: D5 1/2NS 1000ml IV ONE (09:10)
--- NOTE | 2018-02-27 10:24 | General Progress Note ---
Assessment/Plan Assessment/Plan Assessment - PSBO - s/p cervical CA surgery, f/b Chemo and XRT - XRT injury --> subsequent colostomy and urinary diversion - Iron deficiency anemia Recommendations - on full liquid diet - follow lab and exam - surgical f/u - outpatient EGD / Colon Subjective ROS Limited/Unobtainable: Yes Allergies: Coded Allergies: METOCLOPRAMIDE (Verified Allergy, Unknown, 05/08/11) Subjective had bm Objective Last 24 Hour Vital Signs Date Time Temp Pulse Resp B/P (MAP) Pulse Ox O2 Delivery O2 Flow Rate FiO2 02/27/18 08:15 Room Air 02/27/18 08:00 98.1 57 18 142/60 (87) 98 98.1 02/27/18 04:00 98.4 56 19 154/71 (98) 100 98.4 02/27/18 00:00 98.1 62 19 144/72 (96) 98 98.1 02/26/18 21:00 Room Air 02/26/18 20:00 98.6 61 19 144/69 (94) 96 98.6 02/26/18 16:00 98.1 66 21 117/74 (88) 97 98.1 02/26/18 12:00 98.4 67 20 149/70 (96) 96 98.4 Intake and Output 02/26/18 02/27/18 19:00 07:00 Intake Total 1715 ml 950 ml Balance 1715 ml 950 ml Intake Oral 1040 ml 200 ml IV Total 675 ml 750 ml # Voids 3 Laboratory Tests 02/26/18 16:25: White Blood Count 6.2, Red Blood Count 4.26, Hemoglobin 9.8L, Hematocrit 31.0L, Mean Corpuscular Volume 73L, Mean Corpuscular Hemoglobin 23.1L, Mean Corpuscular Hemoglobin Concent 31.7L, Red Cell Distribution Width 14.6, Platelet Count 254, Mean Platelet Volume 6.6, Neutrophils (%) (Auto) 56.6, Lymphocytes (%) (Auto) 30.7, Monocytes (%) (Auto) 9.4, Eosinophils (%) (Auto) 2.3, Basophils (%) (Auto) 1.0 02/26/18 19:50: Ferritin 20 02/27/18 00:10: White Blood Count 5.8, Red Blood Count 3.99L, Hemoglobin 9.1L, Hematocrit 29.2L , Mean Corpuscular Volume 73L, Mean Corpuscular Hemoglobin 22.7L, Mean Corpuscular Hemoglobin Concent 31.1L, Red Cell Distribution Width 14.2, Platelet Count 235, Mean Platelet Volume 5.5L, Neutrophils (%) (Auto) 56.7, Lymphocytes (%) (Auto) 27.6, Monocytes (%) (Auto) 12.1H, Eosinophils (%) (Auto) 3.0, Basophils (%) (Auto) 0.6 02/27/18 07:15: White Blood Count 5.6, Red Blood Count 4.17L, Hemoglobin 9.6L, Hematocrit 31.0L , Mean Corpuscular Volume 74L, Mean Corpuscular Hemoglobin 23.0L, Mean Corpuscular Hemoglobin Concent 31.0L, Red Cell Distribution Width 14.5, Platelet Count 242, Mean Platelet Volume 6.9, Neutrophils (%) (Auto) 62.5, Lymphocytes (%) (Auto) 23.5, Monocytes (%) (Auto) 10.3H, Eosinophils (%) (Auto) 2.7, Basophils (%) (Auto) 1.0, Sodium Level 141, Potassium Level 3.5, Chloride Level 107, Carbon Dioxide Level 26, Anion Gap 8, Blood Urea Nitrogen 10, Creatinine 0.7, Estimat Glomerular Filtration Rate > 60, Glucose Level 166H, Calcium Level 8.4L, Total Bilirubin 0.3, Aspartate Amino Transf (AST/SGOT) 12L, Alanine Aminotransferase (ALT/SGPT) 14, Alkaline Phosphatase 65, Total Protein 6.3L, Albumin 2.8L, Globulin 3.5, Albumin/Globulin Ratio 0.8L Height (Feet): 5 Height (Inches): 1.00 Weight (Pounds): 139 General Appearance: alert EENT: normal ENT inspection Neck: supple Cardiovascular: normal rate Respiratory/Chest: decreased breath sounds Abdomen: normal bowel sounds, non tender, soft Extremities: non-tender Edmond Garcia MD Feb 27, 2018 10:24
[2018-02-27 12:00] VITALS: BP 108/80
--- NOTE | 2018-02-27 14:23 | Cardiology Report ---
APPROVED REPORT EKG Measurement Heart [id number] Normal sinus rhythm Prolonged QT Abnormal ECG
--- NOTE | 2018-02-27 20:51 | General Progress Note ---
Assessment/Plan Assessment/Plan ASSESSMENT AND PLAN: #. Cervical cancer, status post extensive course of surgery, chemotherapy, and radiation. The patient is currently with no evidence of disease on the CT scan. The patient is being followed by her physicians at [facility]. I have had extensive discussion with the patient. I have reassured her that the CT scan does not demonstrate based on the radiologist's report any evidence of disease. The patient does have significant abd abdominal pain, has been recurrent, seen by gi and surgery. In the future, the patient needs to be evaluated by the surgical team at [facility] --> Rec clinical examination by ELECTRONIC PLOTTING SYSTEM OPERATOR Oncology at a [facility]. --> hold off on sending any tumor markers, of limited clinical benefit #. Anemia of iron deficiency, mild. The patient has been followed in this regard. In past had low ferritin. --> The patient's iron and ferritin needs to be evaluated. ferritin is 20 --> outpatient po iron or iv at Dr. Alex office --> appreciate gastrointestinal evaluation. The patient continues to have #. Leukopenia is likely related to reactive process, hepatitis and hiv negative before --> smear reviewed, no major abnormaltiies noted --> consider neupogen x 1 dose if leukopenia worsens #. Abdominal pain, currently significantly improved. No evidence of obstruction based on the CT scan. The patient has been followed up by multiple teams here in the hospital. --> appreciate gi recs Subjective Date patient seen: Feb 26, 2018 Allergies: Coded Allergies: METOCLOPRAMIDE (Verified Allergy, Unknown, 05/08/11) All Systems: reviewed and negative except above Subjective doing better, opassing gas, having bm Objective Last 24 Hour Vital Signs Date Time Temp Pulse Resp B/P (MAP) Pulse Ox O2 Delivery O2 Flow Rate FiO2 02/27/18 12:00 98.6 58 18 108/80 (89) 98 98.6 02/27/18 08:15 Room Air 02/27/18 08:00 98.1 57 18 142/60 (87) 98 98.1 02/27/18 04:00 98.4 56 19 154/71 (98) 100 98.4 02/27/18 00:00 98.1 62 19 144/72 (96) 98 98.1 02/26/18 21:00 Room Air Intake and Output 02/26/18 02/27/18 19:00 07:00 Intake Total 1715 ml 1025 ml Balance 1715 ml 1025 ml Intake Oral 1040 ml 200 ml IV Total 675 ml 825 ml # Voids 3 Laboratory Tests 02/27/18 00:10: White Blood Count 5.8, Red Blood Count 3.99L, Hemoglobin 9.1L, Hematocrit 29.2L , Mean Corpuscular Volume 73L, Mean Corpuscular Hemoglobin 22.7L, Mean Corpuscular Hemoglobin Concent 31.1L, Red Cell Distribution Width 14.2, Platelet Count 235, Mean Platelet Volume 5.5L, Neutrophils (%) (Auto) 56.7, Lymphocytes (%) (Auto) 27.6, Monocytes (%) (Auto) 12.1H, Eosinophils (%) (Auto) 3.0, Basophils (%) (Auto) 0.6 02/27/18 07:15: White Blood Count 5.6, Red Blood Count 4.17L, Hemoglobin 9.6L, Hematocrit 31.0L , Mean Corpuscular Volume 74L, Mean Corpuscular Hemoglobin 23.0L, Mean Corpuscular Hemoglobin Concent 31.0L, Red Cell Distribution Width 14.5, Platelet Count 242, Mean Platelet Volume 6.9, Neutrophils (%) (Auto) 62.5, Lymphocytes (%) (Auto) 23.5, Monocytes (%) (Auto) 10.3H, Eosinophils (%) (Auto) 2.7, Basophils (%) (Auto) 1.0, Sodium Level 141, Potassium Level 3.5, Chloride Level 107, Carbon Dioxide Level 26, Anion Gap 8, Blood Urea Nitrogen 10, Creatinine 0.7, Estimat Glomerular Filtration Rate > 60, Glucose Level 166H, Calcium Level 8.4L, Total Bilirubin 0.3, Aspartate Amino Transf (AST/SGOT) 12L, Alanine Aminotransferase (ALT/SGPT) 14, Alkaline Phosphatase 65, Total Protein 6.3L, Albumin 2.8L, Globulin 3.5, Albumin/Globulin Ratio 0.8L Height (Feet): 5 Height (Inches): 1.00 Weight (Pounds): 139 General Appearance: WD/WN EENT: TMs normal Neck: supple Cardiovascular: regular rhythm Respiratory/Chest: chest wall non-tender Abdomen: non tender Extremities: non-tender Edema: 1+ Leg (L), 1+ Leg (R) Edema: mild edema Neurologic: alert Torrey Caballero MD Feb 27, 2018 20:51
--- NOTE | 2018-02-28 10:04 | General Progress Note ---
Assessment/Plan Status: stable Assessment/Plan ASSESSMENT AND PLAN: #. Cervical cancer, status post extensive course of surgery, chemotherapy, and radiation. The patient is currently with no evidence of disease on the CT scan. The patient is being followed by her physicians at [facility]. I have had extensive discussion with the patient. I have reassured her that the CT scan does not demonstrate based on the radiologist's report any evidence of disease. The patient does have significant abd abdominal pain, has been recurrent, seen by gi and surgery. In the future, the patient needs to be evaluated by the surgical team at [facility] --> Rec clinical examination by PRINT DEVELOPER AUTOMATIC Oncology at a [facility]. --> hold off on sending any tumor markers, of limited clinical benefit #. Anemia of iron deficiency, mild. The patient has been followed in this regard. In past had low ferritin. --> The patient's iron and ferritin needs to be evaluated. ferritin is 20 --> outpatient po iron or iv at Dr. Alex office --> appreciate gastrointestinal evaluation. The patient continues to have #. Leukopenia is likely related to reactive process, hepatitis and hiv negative before --> smear reviewed, no major abnormaltiies noted --> consider neupogen x 1 dose if leukopenia worsens #. Abdominal pain, currently significantly improved. No evidence of obstruction based on the CT scan. The patient has been followed up by multiple teams here in the hospital. --> appreciate gi recs The time the note was entered does not necessarily correspond to the time the patient was seen. Subjective Date patient seen: Feb 27, 2018 Time patient seen: 07:00 ROS Limited/Unobtainable: Yes Hematologic/Lymphatic: Reports: anemia Allergies: Coded Allergies: METOCLOPRAMIDE (Verified Allergy, Unknown, 05/08/11) All Systems: reviewed and negative except above Subjective Pt is stable and medically cleared for DC home with son. No acute distress. Objective Last 24 Hour Vital Signs Date Time Temp Pulse Resp B/P (MAP) Pulse Ox O2 Delivery O2 Flow Rate FiO2 02/27/18 12:00 98.6 58 18 108/80 (89) 98 98.6 Intake and Output 02/27/18 02/28/18 19:00 07:00 Intake Total 615 ml Output Total 800 ml Balance -185 ml Intake Oral 240 ml IV Total 375 ml Output Urine Total 700 ml Stool Total 100 ml Height (Feet): 5 Height (Inches): 1.00 Weight (Pounds): 139 General Appearance: no apparent distress EENT: PERRL/EOMI Neck: normal alignment Cardiovascular: normal peripheral pulses Respiratory/Chest: no respiratory distress Abdomen: normal bowel sounds Torrey Caballero MD Feb 28, 2018 10:04
--- NOTE | 2018-03-01 08:15 | Consultation ---
DATE OF CONSULTATION: 02/25/2018 GASTROENTEROLOGY CONSULTATION CONSULTING PHYSICIAN: Guy Michelle M.D. CHIEF COMPLAINT: I was asked to see this patient by Dr. Raffy Simons for evaluation of abdominal issues. HISTORY OF PRESENT ILLNESS: The patient is a 62-year-old pleasant woman who comes in with a partial small bowel obstruction. The patient states that she had a cervical cancer diagnosis back in 2003, and this was treated with surgery followed by radiation and chemotherapy. Presumably due to radiation, she had some bowel injury. This subsequently had to be treated with partial colectomy and colostomy placement and then also a urinary diversion procedure. She now has had a colonic left lower quadrant colostomy bag and a right lower quadrant urinary diversion bag. She has been admitted with bowel obstruction once or twice a year for many years, and she usually responds to conservative management. Her last surgery was in 2006 when she had a urinary diversion procedure. She stated that she usually spends about 3 days before the bowels returned. Her last colonoscopy was 11 years ago in [facility]. She has been found to have a significant degree of macrocytic iron deficient anemia. However, review of her labs showed that it goes back at least to 4 years, the labs at [facility], although this has gradually worsened. PAST MEDICAL HISTORY: History of cervical cancer as described above. FAMILY HISTORY: Noncontributory. SOCIAL HISTORY: The patient does not smoke or drink. REVIEW OF SYSTEMS: Otherwise negative. PHYSICAL EXAMINATION: GENERAL: A pleasant woman. HEENT: Normocephalic and atraumatic. NECK: Supple. CHEST: Clear to auscultation. CARDIOVASCULAR: Revealed a regular rate. ABDOMEN: Soft and minimally tender centrally without guarding or rebound. The colostomy bag and a urinary diversion bag was seen near the midline scar. EXTREMITIES: No edema. LABORATORY AND DIAGNOSTIC DATA: Laboratory data and CT scan were noted. ASSESSMENT: This patient presents with recurrent small bowel obstruction, and she is likely to respond to conservative management. There is no nausea, vomiting, or bowel distention, and therefore, I said that a period of observation would suffice. The patient was advised that she has a significant degree of microcytic anemia, which is concerning for malignancy or other source of chronic blood loss, and therefore, the patient should undergo an endoscopy and colonoscopy as an outpatient once she has fully recovered from the current bowel obstruction. RECOMMENDATIONS: Per above discussion and per orders written in the chart. Thank you for asking me to participate in the care of this patient. Guy Michelle M.D. DR: BHUPENDRA JOB#: [id number] CC: JULIO
--- NOTE | 2018-03-01 11:49 | Discharge Summary ---
Discharge Summary Discharge Summary _ DATE OF ADMISSION: 02/24/2018 DATE OF DISCHARGE: 02/27/2018 REASON FOR ADMISSION: 62 years old female with past medical history of cervical cancer, colostomy, diverting urostomy, prior episodes of small bowel obstruction, hypertension, diabetes mellitus type 2, presented with 24 hours of abdominal pain and decreased colostomy output. She denied nausea vomiting. She denied fevers, chills. Laboratory workup revealed revealed no leukocytosis, hemoglobin 11.7 , hematocrit 37.2. Stable electrolytes ,renal parameters, LFT, lipase . Glucose 173 Urinalysis without evidence of UTI CT scan of the abdomen and pelvis revealed partial small bowel obstruction Patient was admitted for partial small bowel obstruction, status post colostomy , status post urostomy, diabetes mellitus type 2, hypertension, history of cervical cancer CONSULTANTS: GI specialist Dr. Michelle home health nurse/oncologist Dr. Caballero surgery [facility] COURSE: [] Patient admitted to medical surgical floor. Patient kept nothing by mouth. NG tube was inserted t for decompression. Surgeon closely followed. Surgeon personally reviewed CAT scan . Gastrografin small bowel follow-through was done, followed by CT of the abdomen and pelvis which confirmed partial small bowel obstruction. No evidence of obstruction was found at the level of parastomal hernia. Instead site of obstruction/slow transit was noted at dilated loop of distal ileum in the right quadrant, which contained anastomotic suture line. GI specialist and surgeon closely follow. The surgeon decided to continue with conservative medical management. Stomach decompression and NPO status were continued. Patient was followed up with KUB. KUB on 02/25 revealed interim transit of nearly all of the ingested contrast into the colon. Next day patient started on on diet which was advanced as tolerated. Antiemetics were on board as needed Patient was able to tolerate diet. GI closely followed. Patient with anemia, stool for occult blood was positive, GI recommended outpatient EGD and colonoscopy Hematology/oncology consult was requested due to leukopenia on February 25 . WBC 2.9. Airport Engineer seen and evaluated patient. Patient with history of cervical cancer ,status post extensive course of surgery ,chemotherapy and radiation. Patient currently had no evidence of disease on the CT scan. Patient followed up by her physician at the [facility]. Oncologist discussed the findings with the patient, that CT scan did not demonstrate any evidence of disease. However due to significant abdominal pain and history of cervical cancer, oncologist r recommended further clinical examination by to SUPERVISOR IN CIRCUIT TESTING /oncology at [facility]. Tumor markers were held off due to limited clinical benefit. Hemoglobin and hematocrit were closely monitored with goal to keep hemoglobin above on 7. Hemoglobin 9.6, hematocrit WBC count was closely monitored, the next day was up to normal. Blood sugar was managed with sliding scale insulin while patient was NPO. Metformin was on hold. [id number]-2.7, not at goal yet. need tighter control of blood sugar, to be optimized as outpatient. Blood pressure was closely monitored and managed with antihypertensive on as needed basis. Pain management was addressed . Supportive care provided. GI prophylaxis provided . DVT prophylaxis with heparin and SCD provided Patient clinically improved, and able to tolerate diet, pain resolved. Stable labs. Patient was stable for discharge home FINAL DIAGNOSES: Partial small bowel obstruction- resolved Acute anemia due to GI bleeding Status post colostomy Status post urostomy History of cervical cancer Diabetes mellitus type 2 Hypertension Iron deficiency anemia Leukopenia DISCHARGE MEDICATIONS: See Medication Reconciliation list. DISCHARGE INSTRUCTIONS: Patient was discharged home. Outpatient follow-up with the [facility] physician and home health nurse I have been assigned to dictate discharge summary for this account. I was not involved in the patient's management. Jackie Alegre NP Mar 01, 2018 11:49
== END 2018-02-27 13:30 | disposition home or self-care (01) | DRG 247 ==
LOC: EMR 23:25 → 4E 02-24 02:50 → MERGE 02-24 02:50 → EDBEDREQ 02-24 02:59 → 4E 02-26 19:00
DX: K56.609 Unspecified intestinal obstruction, unspecified as to partial versus complete obstruction (principal); D62 Acute posthemorrhagic anemia; Z43.3 Encounter for attention to colostomy; E11.9 Type 2 diabetes mellitus without complications; I10 Essential (primary) hypertension; Z43.6 Encounter for attention to other artificial openings of urinary tract; Z85.41 Personal history of malignant neoplasm of cervix uteri; Z88.8 Allergy status to other drugs, medicaments and biological substances; Z79.4 Long term (current) use of insulin; Z92.3 Personal history of irradiation
CPT/HCPCS: 36415; 71045; 74018; 74176; 74177; 74250; 80053; 81003; 82270; 82728; 82962; 83036; 83690; 85007; 85025; 93005; C9399; J1815; J2405

== ENCOUNTER 2018-05-16 19:23 | Emergency (ER) | payer MEDICAID ==
[~2018-05-16] VITALS: Ht 152.4 cm; Wt 57.2 kg
[~2018-05-16 19:23] MED LIST changes: +UNOBMED
[2018-05-16 20:00] VITALS: BP 159/76
--- NOTE | 2018-05-16 20:10 | Emergency Room Report ---
History of Present Illness General Chief Complaint: Pain Source: Patient, Medical Record Present Illness HPI 63-year-old male presents to the emergency department complaining of 8 out of 10 in severity right-sided flank pain 2 days. Patient reports initially having some lower abdominal pain that now her pain is radiating towards the right flank. Patient reports she has a history of UTIs in the past which she states feels very similar. Patient parts history of cancer, diabetes and has colostomy bag. She denies fevers or chills. Denies nausea or vomiting. states pain is a dull constant ache. Allergies: Coded Allergies: METOCLOPRAMIDE (Verified Allergy, Unknown, 05/16/18) Patient History Past Medical History: see triage record Past Surgical History: none Pertinent Family History: none Now: No Reviewed Nursing Documentation: PMH: Agreed; PSxH: Agreed Nursing Documentation-PMH Past Medical History: No History, Except For Hx Cardiac Problems: No Hx Hypertension: Yes Hx Pacemaker: No Hx Asthma: No Hx COPD: No Hx Diabetes: Yes Hx Cancer: Yes - CERVICAL 2004 Hx Gastrointestinal Problems: Yes - Colostomy Hx Dialysis: No Hx Neurological Problems: No Hx Cerebrovascular Accident: No Hx Seizures: No Review of Systems All Other Systems: negative except mentioned in HPI Physical Exam Vital Signs Date Time Temp Pulse Resp B/P (MAP) Pulse Ox O2 Delivery O2 Flow Rate FiO2 05/16/18 19:30 98.7 64 15 159/76 97 Room Air 98.8 Sp02 EP Interpretation: reviewed, normal General Appearance: well appearing, no apparent distress, alert, GCS 15, non- toxic Head: normocephalic, atraumatic Eyes: bilateral eye normal inspection, bilateral eye PERRL ENT: hearing grossly normal, normal voice Neck: full range of motion Respiratory: lungs clear, normal breath sounds, speaking full sentences Cardiovascular #1: regular rate, rhythm Gastrointestinal: non tender, soft, other - Colostomy bag Genitourinary: normal inspection, no CVA tenderness Musculoskeletal: back normal, gait/station normal, normal range of motion, non- tender Neurologic: alert, oriented x3, responsive, motor strength/tone normal, sensory intact, speech normal, grossly normal Psychiatric: judgement/insight normal Skin: normal color, no rash, warm/dry, well hydrated Medical Decision Making PA Attestation Dr. del cid is my supervising Physician whom patient management has been discussed with. Diagnostic Impression: Primary Impression: UTI (lower urinary tract infection) ER Course 63-year-old male presents to the emergency department complaining of 8 out of 10 in severity right-sided flank pain 2 days. Patient reports initially having some lower abdominal pain that now her pain is radiating towards the right flank. Patient reports she has a history of UTIs in the past which she states feels very similar. Patient parts history of cancer, diabetes and has colostomy bag. She denies fevers or chills. Denies nausea or vomiting. states pain is a dull constant ache. Ddx considered but are not limited to Diverticulitis, acute appy, diarrhea,UC, PUD, GE, pancreatitis, gallstone, kidney stone, pyelonephritis, UTI, obstruction. Vital signs: are WNL, pt. is afebrile H&PE are most consistent with UTI ORDERS: - UA- Nitrite Positive - POSITIVE UTI ED INTERVENTIONS: -PYridium -TYlenol # 3 - Macrobid DISCHARGE: At this time pt. is stable for d/c to home. Will provide printed patient care instructions, and any necessary prescriptions. Care plan and follow up instructions have been discussed with the patient prior to discharge. Labs Test 05/16/18 20:02 Urine Color Pale yellow Urine Appearance Clear Urine pH 7 (4.5-8.0) Urine Specific [employer] 1.010 (1.005-1.035) Urine Protein Negative (NEGATIVE) Urine Glucose (UA) Negative (NEGATIVE) Urine Ketones Negative (NEGATIVE) Urine Blood 1+ (NEGATIVE) Urine Nitrite Positive (NEGATIVE) Urine Bilirubin Negative (NEGATIVE) Urine Urobilinogen Normal MG/DL (0.0-1.0) Urine Leukocyte Esterase 3+ (NEGATIVE) Urine RBC 2-4 /HPF (0 - 2) Urine WBC 5-10 /HPF (0 - 2) Urine Squamous Epithelial Cells Few /LPF (NONE/OCC) Urine Bacteria Few /HPF (NONE) Last Vital Signs Date Time Temp Pulse Resp B/P (MAP) Pulse Ox O2 Delivery O2 Flow Rate FiO2 05/16/18 19:30 98.7 64 15 159/76 97 Room Air 98.8 Disposition: HOME, SELF-CARE Condition: Stable Scripts Nitrofurantoin Monohyd/M-Cryst* (MACROBID 100 MG*) 100 Mg Capsule 100 MG ORAL EVERY 12 HOURS for 7 Days, #14 CAP Prov: Rina Pierre 05/16/18 Patient Instructions: Urinary Tract Infection, [id number] Additional Instructions: Take medications as directed. Follow up with a Primary Care Provider in 3-5 days, even if your symptoms have resolved. --Please review list of primary care clinics, if you do not already have a primary care provider Return sooner to ED if new symptoms occur, or current symptoms become worse. - Please note that this Emergency Department Report was dictated using Nuvyyoact[employer] therapist technology software, occasionally this can lead to erroneous entry secondary to interpretation by the dictation equipment. Rina Pierre May 16, 2018 20:10
[2018-05-16] MEDS ORDERED: Tylenol #3 tab (300mg/30mg) ORAL ONE (20:15)
[2018-05-16 20:20] VITALS: BP 159/76
[2018-05-16 20:21] LABS: APPEARANCE,URINE CLEAR; BILIRUBIN, URINE NEGATIVE (NEGATIVE); COLOR,URINE PALE YELLOW; GLUCOSE, URINE (UA) NEGATIVE (NEGATIVE); KETONES,URINE NEGATIVE (NEGATIVE); LEUKOCYTE ESTERASE ,URINE 3+ (NEGATIVE); NITRITE,URINE POSITIVE (NEGATIVE); PH,URINE 7 (4.5-8.0); PROTEIN,URINE NEGATIVE (NEGATIVE); UROBILINOGEN,URINE NORMAL MG/DL (0.0-1.0)
[2018-05-16] MEDS ORDERED: NITROFURANTOIN100 M2 ORAL (20:40)
== END 2018-05-16 20:45 | disposition home or self-care (01) ==
LOC: EMR 20:00
DX: N39.0 Urinary tract infection, site not specified (principal); I10 Essential (primary) hypertension; E11.9 Type 2 diabetes mellitus without complications; Z85.41 Personal history of malignant neoplasm of cervix uteri; Z93.3 Colostomy status
CPT/HCPCS: 81003; 99283

== ENCOUNTER 2018-09-05 20:20 | Emergency (ER) | payer MEDICAID, OTHER ==
[~2018-09-05] VITALS: Ht 160 cm; Wt 49.9 kg
[~2018-09-05 20:20] MED LIST changes: +NITROFURANTOIN100 M2 ORAL
--- NOTE | 2018-09-05 20:50 | NUR ---
ED Nurse Note: Patient presents with complaints of pelvic pain x 2 weeks, has colostomy and uromstomy bags.
[2018-09-05 20:51] VITALS: BP 103/58
[2018-09-05] MEDS ORDERED: Levofloxacin 500mg tab ORAL ONE (21:00)
[2018-09-05 21:07] LABS: APPEARANCE,URINE CLEAR; BILIRUBIN, URINE NEGATIVE (NEGATIVE); COLOR,URINE PALE YELLOW; GLUCOSE, URINE (UA) NEGATIVE (NEGATIVE); KETONES,URINE NEGATIVE (NEGATIVE); LEUKOCYTE ESTERASE ,URINE 2+ (NEGATIVE); NITRITE,URINE POSITIVE (NEGATIVE); PH,URINE 6.5 (4.5-8.0); PROTEIN,URINE 1+ (NEGATIVE); UROBILINOGEN,URINE NORMAL MG/DL (0.0-1.0)
[2018-09-05] MEDS ORDERED: LEVAQUIN500 MG ORAL (21:09)
--- NOTE | 2018-09-05 21:09 | Emergency Room Report ---
History of Present Illness General Chief Complaint: Abdominal Pain Source: Patient Present Illness HPI This is a 63-year-old female with a history of cancer. She has colostomy and lateral surgery. She did recurrent UTI. She presents with chief complaint of UTI symptom. She has foul-smelling urine and painful urination. Similar symptom in the past. This been ongoing for about 3 weeks but worse the last few days. No hematuria. No nausea no vomiting. No fever or chills. Allergies: Coded Allergies: METOCLOPRAMIDE (Verified Allergy, Unknown, 05/16/18) Patient History Past Medical History: see triage record, old chart reviewed Past Surgical History: none Pertinent Family History: none Social History: Denies: smoking Now: No Immunizations: other Reviewed Nursing Documentation: PMH: Agreed; PSxH: Agreed Nursing Documentation-PMH Past Medical History: No History, Except For Hx Cardiac Problems: No Hx Hypertension: Yes Hx Pacemaker: No Hx Asthma: No Hx COPD: No Hx Diabetes: Yes Hx Cancer: Yes - CERVICAL 2004 Hx Gastrointestinal Problems: Yes - Colostomy Hx Dialysis: No Hx Neurological Problems: No Hx Cerebrovascular Accident: No Hx Seizures: No Review of Systems Eye: Denies: eye pain, blurred vision ENT: Denies: ear pain, nose congestion, throat swelling Respiratory: Denies: cough, shortness of breath Cardiovascular: Denies: chest pain, palpitations Gastrointestinal: Denies: abdominal pain, diarrhea, nausea, vomiting Genitourinary: Reports: dysuria Musculoskeletal: Denies: back pain, joint pain Skin: Denies: rash Neurological: Denies: headache, numbness Endocrine: Denies: increased thirst, increased urine Hematologic/Lymphatic: Denies: easy bruising All Other Systems: negative except mentioned in HPI Physical Exam Vital Signs Date Time Temp Pulse Resp B/P (MAP) Pulse Ox O2 Delivery O2 Flow Rate FiO2 09/05/18 20:28 97.9 68 14 103/58 95 Room Air vitals normal Sp02 EP Interpretation: reviewed, normal General Appearance: well appearing, no apparent distress, alert Head: normocephalic, atraumatic Eyes: bilateral eye PERRL, bilateral eye EOMI ENT: hearing grossly normal, normal pharynx Neck: full range of motion, supple, no meningismus Respiratory: chest non-tender, lungs clear, normal breath sounds Cardiovascular #1: regular rate, rhythm, no murmur Gastrointestinal: normal bowel sounds, non tender, no mass, no organomegaly, no bruit, non-distended, other - Colostomy bag intact Musculoskeletal: back normal, gait/station normal, normal range of motion Psychiatric: mood/affect normal Skin: warm/dry Medical Decision Making Diagnostic Impression: Primary Impression: UTI (lower urinary tract infection) ER Course Patient with symptoms consistent with UTI. She grew out Providencia and Escherichia coli in the past. Sensitive to Levaquin. I gave her a dose here. No evidence any sepsis. No evidence of any obstruction. Last Vital Signs Date Time Temp Pulse Resp B/P (MAP) Pulse Ox O2 Delivery O2 Flow Rate FiO2 09/05/18 20:51 68 14 Room Air 09/05/18 20:51 97.9 103/58 95 Status: improved Disposition: HOME, SELF-CARE Condition: Stable Scripts Levofloxacin* (LEVAQUIN*) 500 Mg Tablet 500 MG ORAL DAILY, #7 TAB Prov: Harman Randhawa MD 09/05/18 Additional Instructions: Follow-up with your DrSoo in 7 days. Return if symptom worsen. Harman Randhawa MD Sep 05, 2018 21:09
[2018-09-05 21:19] VITALS: BP 103/58
--- NOTE | 2018-09-05 21:19 | NUR ---
ED Nurse Note: Patient given oral anti-infective and cleared for discharge, patient vital signs stable no s/s of acute distress. patient verbalized understanding of discharge instructions. ID band removed. patient departed with all personal belongings.
== END 2018-09-05 21:22 | disposition home or self-care (01) ==
LOC: EMR 21:21
DX: N39.0 Urinary tract infection, site not specified (principal); E11.9 Type 2 diabetes mellitus without complications; I10 Essential (primary) hypertension; Z93.3 Colostomy status; Z85.41 Personal history of malignant neoplasm of cervix uteri
CPT/HCPCS: 81003; 99283

== ENCOUNTER 2019-02-11 19:58 | Inpatient (IN) | payer OTHER ==
[~2019-02-11] VITALS: Ht 157.5 cm; Wt 45.8 kg
[~2019-02-11 19:58] MED LIST changes: +LEVAQUIN500 MG ORAL
--- NOTE | 2019-02-11 20:15 | NUR ---
ED Nurse Note: pt walked in c/o rodger ankle swelling and minor pain, pt states she's been having it for past two wks. noted edema nonpitting rodger ankle area. pt denies any recent injuries. will cont monitor.
--- NOTE | 2019-02-11 20:18 | NUR ---
ED Nurse Note: pt given extra blanket for comfort, pt vss, resp even and unlabored on RA, will cont monitor.
[2019-02-11 20:30] VITALS: BP 95/43
--- NOTE | 2019-02-11 20:30 | NUR ---
ED Nurse Note: noted pt's BP 95/43, lasix was withheld this time due to pt's bp. ERMD notified.
--- NOTE | 2019-02-11 20:34 | Emergency Room Report ---
History of Present Illness General Chief Complaint: Edema Source: Patient Present Illness HPI Patient presents with edema. This been going on for more than several weeks. She thought that her heater was too close to her legs and this caused it. She is undergoing chemotherapy for colon cancer. She has had a colostomy and ileostomy. Her last chemotherapy was on Wednesday. She does not know if her kidney function dion been okay. She denies any chest pain or orthopnea. She denies any fevers or chills. She denies calf pain, hemoptysis or dyspnea. Not been treated with water pills. She denies diabetes or hypertension at this time. Initially she was having problems with anything that she ate coming out with watery from the colostomy. It seems to be better at this time. Denies any pain. No sore throat, palpitations, nausea, vomiting, dysuria, abdominal pain, shortness of breath, joint pain, rashes, depression, anxiety, visual changes, headache. Allergies: Coded Allergies: METOCLOPRAMIDE (Verified Allergy, Unknown, 05/16/18) Patient History Past Medical History: see triage record, other - Colon cancer Past Surgical History: other - Colostomy and ileostomy Social History: Denies: smoking, alcohol use, drug use Social History Narrative home Now: No : 5 Para: 5 Reviewed Nursing Documentation: PMH: Agreed; PSxH: Agreed Nursing Documentation-PMH Hx Cardiac Problems: No Hx Hypertension: Yes Hx Pacemaker: No Hx Asthma: No Hx COPD: No Hx Diabetes: Yes Hx Cancer: Yes - cervical; colon Hx Gastrointestinal Problems: Yes - colostomy, ostomy Hx Dialysis: No Hx Neurological Problems: No Hx Cerebrovascular Accident: No Hx Seizures: No Review of Systems All Other Systems: negative except mentioned in HPI Physical Exam Vital Signs Date Time Temp Pulse Resp B/P (MAP) Pulse Ox O2 Delivery O2 Flow Rate FiO2 02/11/19 20:04 98.1 75 16 111/55 (73) 100 Room Air Sp02 EP Interpretation: reviewed, normal General Appearance: no apparent distress, alert, GCS 15, non-toxic Head: normocephalic, atraumatic Eyes: bilateral eye conjunctivae pale Respiratory: lungs clear, normal breath sounds Cardiovascular #1: regular rate, rhythm, edema - 2+ ankle 1+ pretibial edema bilaterally Cardiovascular #2: 2+ radial (R), 2+ dorsalis pedis (R), 2+ dorsalis pedis (L) Gastrointestinal: non tender, soft, other - Colostomy and ileostomy Genitourinary: no CVA tenderness Musculoskeletal: digits/nails normal, gait/station normal, normal range of motion, no calf tenderness, Vashti's Sign negative Neurologic: oriented x3, grossly normal Psychiatric: mood/affect normal Skin: other - No significant erythema Medical Decision Making Diagnostic Impression: Primary Impression: DVT (deep venous thrombosis) Qualified Codes: I82.411 - Acute embolism and thrombosis of right femoral vein Additional Impressions: UTI (lower urinary tract infection) Colon cancer Qualified Codes: C18.9 - Malignant neoplasm of colon, unspecified Protein calorie malnutrition Qualified Codes: E44.0 - Moderate protein-calorie malnutrition Low bicarbonate possibly due to ileostomy Anemia Qualified Codes: D64.9 - Anemia, unspecified ER Course Patient presents with bilateral edema with a history of colon cancer. Differential includes malnutrition, DVT, electrolyte imbalance, renal failure, cellulitis amongst others. Patient is evaluated with EKG, chest x-ray, abdominal films, labs and noninvasive vascular study lower extremities. No evidence of PE. EKG without injury. CXR, clear. Adb - surgical clips. U/S - DVT R superficial femoral artery. CBC with normal white count and anemia. CMP with normal renal function but low bicarbonate. Coags normal. Urinalysis with pyuria. Lovenox given. Rocephin given. Due to the complexity of colon CA and DVT, choice of anticoagulation needs further review by wash plant operator - admit med. Contact Dr. Sanchez. Laboratory Tests Test 02/11/19 20:45 White Blood Count 5.4 K/UL (4.8-10.8) Red Blood Count 3.21 M/UL (4.20-5.40) L Hemoglobin 8.9 G/DL (12.0-16.0) L Hematocrit 28.0 % (37.0-47.0) L Mean Corpuscular Volume 87 FL (80-99) Mean Corpuscular Hemoglobin 27.8 PG (27.0-31.0) Mean Corpuscular Hemoglobin Concent 31.9 G/DL (32.0-36.0) L Red Cell Distribution Width 18.0 % (11.6-14.8) H Platelet Count 220 K/UL (150-450) Mean Platelet Volume 5.3 FL (6.5-10.1) L Neutrophils (%) (Auto) 56.3 % (45.0-75.0) Lymphocytes (%) (Auto) 23.9 % (20.0-45.0) Monocytes (%) (Auto) 16.4 % (1.0-10.0) H Eosinophils (%) (Auto) 2.3 % (0.0-3.0) Basophils (%) (Auto) 1.0 % (0.0-2.0) Prothrombin Time 9.5 SEC (9.30-11.50) Prothrombin Time INR 0.9 (0.9-1.1) PTT 22 SEC (23-33) L Urine Color Pale yellow Urine Appearance Slightly cloudy Urine pH 7 (4.5-8.0) Urine Specific [place] 1.010 (1.005-1.035) Urine Protein 1+ (NEGATIVE) H Urine Glucose (UA) Negative (NEGATIVE) Urine Ketones Negative (NEGATIVE) Urine Blood 1+ (NEGATIVE) H Urine Nitrite Positive (NEGATIVE) H Urine Bilirubin Negative (NEGATIVE) Urine Urobilinogen Normal MG/DL (0.0-1.0) Urine Leukocyte Esterase 2+ (NEGATIVE) H Urine RBC 0-2 /HPF (0 - 2) Urine WBC 5-10 /HPF (0 - 2) H Urine Squamous Epithelial Cells Occasional /LPF Urine Bacteria Many /HPF (NONE) H Sodium Level 140 MMOL/L (136-145) Potassium Level 3.5 MMOL/L (3.5-5.1) Chloride Level 111 MMOL/L (98-107) H Carbon Dioxide Level 19 MMOL/L (21-32) L Anion Gap 10 mmol/L (5-15) Blood Urea Nitrogen 9 mg/dL (7-18) Creatinine 0.8 MG/DL (0.55-1.30) Estimate Glomerular Filtration Rate > 60 mL/min (>60) Glucose Level 117 MG/DL (74-106) H Calcium Level 8.2 MG/DL (8.5-10.1) L Total Bilirubin 0.2 MG/DL (0.2-1.0) Aspartate Amino Transferase (AST) 14 U/L (15-37) L Alanine Aminotransferase (ALT) 13 U/L (12-78) Alkaline Phosphatase 87 U/L (46-116) Total Creatine Kinase 35 U/L (26-308) Troponin I 0.014 ng/mL (0.000-0.056) Pro-B-Type Natriuretic Peptide 306 pg/mL (0-125) H Total Protein 5.7 G/DL (6.4-8.2) L Albumin 2.9 G/DL (3.4-5.0) L Globulin 2.8 g/dL Albumin/Globulin Ratio 1.0 (1.0-2.7) EKG Diagnostic Results Rate: normal Rhythm: NSR ST Segments: no acute changes Rhythm Strip Diag. Results EP Interpretation: yes Rhythm: NSR, no PVC's, no ectopy Chest X-Ray Diagnostic Results Chest X-Ray Diagnostic Results : Chest X-Ray Ordered: Yes # of Views/Limited/Complete: 1 View Indication: Other EP Interpretation: Yes Interpretation: no consolidation, no effusion, no pneumothorax, other - PICC Left Impression: Other Electronically Signed by: Electronically signed by Amado Welch MD Other X-Ray Diagnostic Results Other X-Ray Diagnostic Results : X-Ray ordered: abd # of Views/Limited Vs Complete: 2 View Indication: Other EP Interpretation: Yes Interpretation: nonspecific bowel gas, no sbo, other - clips Impression: Other Electronically Signed by: Electronically signed by Amado Welch MD CT/MRI/US Diagnostic Results CT/MRI/US Diagnostic Results : Imaging Test Ordered: u/s Impression Superficial femoral DVT right Last Vital Signs Date Time Temp Pulse Resp B/P (MAP) Pulse Ox O2 Delivery O2 Flow Rate FiO2 02/12/19 01:20 58 02/12/19 01:00 98.3 18 102/56 (71) 100 02/12/19 00:56 Room Air Status: improved Disposition: ADMITTED INPATIENT Condition: Serious Amado Welch MD Feb 11, 2019 20:34
[2019-02-11 21:00] VITALS: BP 109/56
[2019-02-11 21:00] LABS: APPEARANCE,URINE SLIGHTLY CLOUDY; BILIRUBIN, URINE NEGATIVE (NEGATIVE); COLOR,URINE PALE YELLOW; GLUCOSE, URINE (UA) NEGATIVE (NEGATIVE); KETONES,URINE NEGATIVE (NEGATIVE); LEUKOCYTE ESTERASE ,URINE 2+ (NEGATIVE); NITRITE,URINE POSITIVE (NEGATIVE); PH,URINE 7 (4.5-8.0); PROTEIN,URINE 1+ (NEGATIVE); UROBILINOGEN,URINE NORMAL MG/DL (0.0-1.0)
--- NOTE | 2019-02-11 21:00 | NUR ---
ED Nurse Note: noted pts bp 109/56, ERMD notified, given lasix 20mg via iv. will cont monitor.
[2019-02-11 21:02] LABS: EOSINOPHILS % (AUTO) 2.3 % (0.0-3.0); HEMOGLOBIN 8.9 G/DL (12.0-16.0); LYMPHOCYTES % (AUTO) 23.9 % (20.0-45.0); MEAN CORPUSCULAR VOLUME 87 FL (80-99); MONOCYTES % (AUTO) 16.4 % (1.0-10.0); NEUTROPHILS % (AUTO) 56.3 % (45.0-75.0); PLATELET COUNT 220 K/UL (150-450); RED BLOOD COUNT 3.21 M/UL (4.20-5.40); WHITE BLOOD COUNT 5.4 K/UL (4.8-10.8)
[2019-02-11 21:15] LABS: INR 0.9 (0.9-1.1)
[2019-02-11 21:24] LABS: ANION GAP 10 mmol/L (5-15); BLOOD UREA NITROGEN 9 mg/dL (7-18); CALCIUM 8.2 MG/DL (8.5-10.1); CARBON DIOXIDE 19 MMOL/L (21-32); CHLORIDE 111 MMOL/L (98-107); CREATININE 0.8 MG/DL (0.55-1.30); POTASSIUM 3.5 MMOL/L (3.5-5.1); SODIUM 140 MMOL/L (136-145)
[2019-02-11 21:35] LABS: ALANINE AMINOTRANSFERASE 13 U/L (12-78); ALBUMIN 2.9 G/DL (3.4-5.0); ALKALINE PHOSPHATASE 87 U/L (46-116); ASPARTATE AMINO TRANSFERASE 14 U/L (15-37); BILIRUBIN,TOTAL 0.2 MG/DL (0.2-1.0); CREATINE KINASE 35 U/L (26-308)
[2019-02-11] MEDS ORDERED: Enoxaparin 60mg Inj SUBQ STA (21:36)
[2019-02-11] MEDS ORDERED: cefTRIAXone 1 GM in NS 55 ML IVPB ONE (21:45)
[2019-02-11 22:00] VITALS: BP 96/43
--- NOTE | 2019-02-11 22:01 | Diagnostic Imaging Report ---
Indication:Leg pain and swelling Technique: Grayscale and duplex Doppler imaging of the veins in both lower extremities performed in real time utilizing compression and augmentation. Comparison: None Findings: Duplex Doppler interrogation of the veins in both lower extremity is performed from the common femoral vein to the popliteal vein. There is thrombus within the part of the right superficial femoral vein which is noncompressible in this segment. Otherwise, there is normal venous compressibility demonstrated throughout. No thrombus identified otherwise. Waveform analysis shows good respiratory phasicity and augmentation. IMPRESSION: Small segment acute thrombus in the right superficial femoral vein. [facility] has communicated the preliminary results to the Emergency Department. Their findings are largely concordant with this report.
[2019-02-11 23:00] VITALS: BP 95/43
--- NOTE | 2019-02-12 00:35 | NUR ---
ED Nurse Note: REPORT GIVEN TO RN SANDRA FROM TELE.
--- NOTE | 2019-02-12 00:45 | NUR ---
ED Nurse Note: pt transferred to tele, all belongings sent w/ pt w/ completed list, NSR on environmental monitoring specialist, vss, iv intact and patent. care endorsed to RADHA Kay
--- NOTE | 2019-02-12 00:50 | NUR ---
NURSE NOTES: Received report from Mirza Allen RN. regarding patient's transfer to TELE floor from ED. Arrived via gurney and assisted with transfer to bed. Patient is AAO X4 Bulgarian speaking with some Chinese observed. Head to toe assessment initiated with RUQ Urostomy and LUQ Colostomy present upon admission, both stoma are beefy red with no discoloration or purulent drainage noted with drainage bags clean and intact. Offered bedpan PRN at bedside. Bilateral feet swelling noted with confirmed Right superficial femoral DVT from ED Venous Duplex. Belongings checked at bedside with patient and is documented and accounted for. Patient is instructed to be on full bedrest for active DVT. Cardiac monitoring in place per protocol, IV and PICC line intact and patent. Safety precaution in place; siderails X3 up, call light within reach, bed in lowest position, brakes and alarm on a all times. Needs and wants anticipated and attended, will continue plan of care and monitor for any changes noted.
[2019-02-12 01:00] VITALS: BP 102/56
[2019-02-12] MEDS: metFORMIN 500mg tab ORAL SCH ×3 (02:00→17:28)
[2019-02-12] MEDS ORDERED: HYDROmorphone 4mg tab ORAL PRN (02:00)
--- NOTE | 2019-02-12 02:20 | NUR ---
NURSE NOTES: New orders received and carried out per Sukhdev Aldana MD. Will continue plan of care.
--- NOTE | 2019-02-12 02:30 | NUR ---
NURSE NOTES: Metformin PO held d/t BS 82 and too close to next dose at 0900. Novolog per SS [facility]S, will recheck BS for at 0600. Will continue to monitor.
[2019-02-12] MEDS ORDERED: ASPIR 8181 MG ORAL (02:48)
[2019-02-12 04:00] VITALS: BP 104/57
[2019-02-12] MEDS: NovoLOG Insulin Flexpen SUBQ SCH ×4 (05:51→21:00)
[2019-02-12 07:28] LABS: BASOPHILS % (AUTO) 1.2 % (0.0-2.0); HEMATOCRIT 26.4 % (37.0-47.0); HEMOGLOBIN 8.6 G/DL (12.0-16.0); LYMPHOCYTES % (AUTO) 34.3 % (20.0-45.0); MEAN CORPUSCULAR VOLUME 87 FL (80-99); MONOCYTES % (AUTO) 15.7 % (1.0-10.0); NEUTROPHILS % (AUTO) 45.9 % (45.0-75.0); PLATELET COUNT 214 K/UL (150-450); RED BLOOD COUNT 3.05 M/UL (4.20-5.40); RED CELL DISTRIBUTION WIDTH 18.5 % (11.6-14.8); WHITE BLOOD COUNT 4.6 K/UL (4.8-10.8)
[2019-02-12 07:30] LABS: ANION GAP 10 mmol/L (5-15); BLOOD UREA NITROGEN 7 mg/dL (7-18); CALCIUM 8.3 MG/DL (8.5-10.1); CARBON DIOXIDE 20 MMOL/L (21-32); CHLORIDE 110 MMOL/L (98-107); CREATININE 0.6 MG/DL (0.55-1.30); POTASSIUM 3.2 MMOL/L (3.5-5.1); SODIUM 140 MMOL/L (136-145)
--- NOTE | 2019-02-12 07:49 | NUR ---
HAND-OFF: Report given to Tamica Villagran RN. Patient in bed in stable condition. Endorsed plan of care
[2019-02-12 08:00] VITALS: BP 96/49
--- NOTE | 2019-02-12 08:08 | NUR ---
NURSE NOTES: Patient is alert and oriented. Patient is on room air. No reports of discomfort at the moment. Side rails are upx2, bed is locked, in lowest position, and call light is within reach. Will continue to monitor.
[2019-02-12] MEDS: Enoxaparin Sodium 300mg/3ml vial SUBQ SCH ×2 (08:50→21:01)
--- NOTE | 2019-02-12 10:53 | History & Physical ---
History and Physical History & Physicial History and Physical HPI Patient with history of Colon Cancer, presents with lower extremity edema for several weeks. She has been undergoing chemotherapy for colon cancer. She has had a colostomy and ureterostomy. Her last chemotherapy was on Wednesday. Noted to have DVT in the ED. She denies any chest pain or orthopnea. She denies any fevers or chills. She denies calf pain, hemoptysis or dyspnea. Not been treated with water pills. She denies diabetes or hypertension at this time. Initially she was having problems with watery stool from the colostomy. Now improved Denies any pain. Allergies: METOCLOPRAMIDE Past Medical History: Colon cancer, Colostomy and ileostomy, Hypertension, Cervical Cancer Physical Exam Vital Signs Noted Date Time Temp Pulse Resp B/P (MAP) Pulse Ox O2 Delivery O2 Flow Rate FiO2 02/11/19 20:04 98.1 75 16 111/55 (73) 100 Room Air General Appearance: no apparent distress, alert, GCS 15, non-toxic Cardiovascular: Normal HS, RRR, edema - 2+ ankle 1+ pretibial edema bilaterally Gastrointestinal: non tender, soft, other - Colostomy and ileostomy Musculoskeletal: digits/nails normal, gait/station normal, normal range of motion, no calf tenderness Neurologic: oriented x3, grossly normal Psychiatric: mood/affect normal Skin: other - No significant erythema Impression: DVT (deep venous thrombosis) UTI (lower urinary tract infection) Colon cancer History of Hypertension Previous Cervical Cancer Colostomy and uterostomy Paln: Lovenox Levaquin Trend Labs PPX [employer] Meds Laboratory Tests Test 02/11/19 20:45 White Blood Count 5.4 K/UL (4.8-10.8) Red Blood Count 3.21 M/UL (4.20-5.40) L Hemoglobin 8.9 G/DL (12.0-16.0) L Hematocrit 28.0 % (37.0-47.0) L Mean Corpuscular Volume 87 FL (80-99) Mean Corpuscular Hemoglobin 27.8 PG (27.0-31.0) Mean Corpuscular Hemoglobin Concent 31.9 G/DL (32.0-36.0) L Red Cell Distribution Width 18.0 % (11.6-14.8) H Platelet Count 220 K/UL (150-450) Mean Platelet Volume 5.3 FL (6.5-10.1) L Neutrophils (%) (Auto) 56.3 % (45.0-75.0) Lymphocytes (%) (Auto) 23.9 % (20.0-45.0) Monocytes (%) (Auto) 16.4 % (1.0-10.0) H Eosinophils (%) (Auto) 2.3 % (0.0-3.0) Basophils (%) (Auto) 1.0 % (0.0-2.0) Prothrombin Time 9.5 SEC (9.30-11.50) Prothrombin Time INR 0.9 (0.9-1.1) PTT 22 SEC (23-33) L Urine Color Pale yellow Urine Appearance Slightly cloudy Urine pH 7 (4.5-8.0) Urine Specific [place] 1.010 (1.005-1.035) Urine Protein 1+ (NEGATIVE) H Urine Glucose (UA) Negative (NEGATIVE) Urine Ketones Negative (NEGATIVE) Urine Blood 1+ (NEGATIVE) H Urine Nitrite Positive (NEGATIVE) H Urine Bilirubin Negative (NEGATIVE) Urine Urobilinogen Normal MG/DL (0.0-1.0) Urine Leukocyte Esterase 2+ (NEGATIVE) H Urine RBC 0-2 /HPF (0 - 2) Urine WBC 5-10 /HPF (0 - 2) H Urine Squamous Epithelial Cells Occasional /LPF Urine Bacteria Many /HPF (NONE) H Sodium Level 140 MMOL/L (136-145) Potassium Level 3.5 MMOL/L (3.5-5.1) Chloride Level 111 MMOL/L (98-107) H Carbon Dioxide Level 19 MMOL/L (21-32) L Anion Gap 10 mmol/L (5-15) Blood Urea Nitrogen 9 mg/dL (7-18) Creatinine 0.8 MG/DL (0.55-1.30) Estimate Glomerular Filtration Rate > 60 mL/min (>60) Glucose Level 117 MG/DL (74-106) H Calcium Level 8.2 MG/DL (8.5-10.1) L Total Bilirubin 0.2 MG/DL (0.2-1.0) Aspartate Amino Transferase (AST) 14 U/L (15-37) L Alanine Aminotransferase (ALT) 13 U/L (12-78) Alkaline Phosphatase 87 U/L (46-116) Total Creatine Kinase 35 U/L (26-308) Troponin I 0.014 ng/mL (0.000-0.056) Pro-B-Type Natriuretic Peptide 306 pg/mL (0-125) H Total Protein 5.7 G/DL (6.4-8.2) L Albumin 2.9 G/DL (3.4-5.0) L Globulin 2.8 g/dL Albumin/Globulin Ratio 1.0 (1.0-2.7) EKG: Rate: normal Rhythm: NSR ST Segments: no acute changes Chest X-Ray: no consolidation, no effusion, no pneumothorax, other - PICC Left AXR: nonspecific bowel gas, no sbo, other - clips LE Dupplex:Superficial femoral DVT right Amado Aldana MD Feb 12, 2019 10:53
--- NOTE | 2019-02-12 11:38 | Diagnostic Imaging Report ---
Indication: Abdominal pain Comparison: 02/25/2018 Single view of the abdomen obtained Findings: Bowel gas pattern is nonspecific although there is a relative paucity of bowel gas. There is a ostomy in the left lower quadrant and multiple surgical clips. No mass, ectopic calcifications, or abnormal gas collections are identified. The bones are unremarkable. Impression: No acute findings
--- NOTE | 2019-02-12 11:38 | Diagnostic Imaging Report ---
Indication: Dyspnea Comparison: 02/24/2018 A single view chest radiograph was obtained. Findings: PICC line is present in good position with the tip projected over the upper right atrium. Heart size is normal. Lungs are clear. Bones are osteopenic. IMPRESSION: No acute findings.
[2019-02-12 12:00] VITALS: BP 91/53
[2019-02-12 16:00] VITALS: BP 135/66
--- NOTE | 2019-02-12 18:15 | Consultation ---
DATE OF CONSULTATION: 02/12/2019 CARDIOLOGY CONSULTATION CONSULTING PHYSICIAN: Amado Phillips M.D. REQUESTING PHYSICIAN: Jian Sanchez M.D. REASON FOR CONSULTATION: Edema. HISTORY OF PRESENT ILLNESS: This 63-year-old female has colon cancer and has been undergoing chemotherapy. She has a colostomy and ureterostomy. Her last chemotherapy was just 2 days ago. She came into the emergency room complaining of edema, but deny chest pain or shortness of breath. She was noted to have a DVT in her right lower extremity. I have been asked to assist with cardiovascular care. Her initial troponin level was borderline at 0.014. Her repeat troponin level was 0. The patient has not been on any diuretic therapy in the past and denies any history of cardiac disease. PAST MEDICAL HISTORY: Hypertension, cervical cancer, colon cancer, colostomy, ureterostomy, and ileostomy. CURRENT MEDICATIONS: Reviewed. ALLERGIES: Metoclopramide. SOCIAL HISTORY: Nonsmoker. No alcohol or substance abuse. REVIEW OF SYSTEMS: Otherwise unremarkable. PHYSICAL EXAMINATION: VITAL SIGNS: Blood pressure 102/56, pulse 61, respiratory rate 18, and afebrile. Monitored rhythm, sinus. NECK: Supple. Jugular venous pressure normal. LUNGS: Clear. CARDIAC: Regular rhythm and rate. Normal S1, S2 with no murmur, rub, or gallop. ABDOMEN: Soft and nontender. Colostomy is clean. EXTREMITIES: Reveal 1+ ankle edema, which has improved from admission . LABORATORY DATA: White count 4.6 and hemoglobin 8.6. Albumin 2.9. BUN 7, creatinine 0.6, potassium 3.2, bicarb 20, and sodium 140. Pro-natriuretic peptide 306. IMPRESSION: 1. Acute DVT. 2. Colon cancer, on chemotherapy. 3. Hypokalemia. 4. Metabolic acidosis. 5. No signs of acute myocardial infarction or ischemia. 6. Third spacing with mild acute diastolic congestive heart failure. 7. Moderate protein-calorie malnutrition. PLAN: 1. Potassium replacement. 2. Check magnesium. 3. Full anticoagulation. 4. Protein supplement. 5. No role for chronic diuretic therapy. 6. Echocardiogram to assess left ventricular function. Amado Phillips M.D. DR: MELISSA JOB#: [id number] CC:
--- NOTE | 2019-02-12 18:32 | NUR ---
NURSE NOTES: Irregular rhythm noted at 1730. Dr. Phillips called. Voicemail left. Awaiting call back.
--- NOTE | 2019-02-12 19:36 | NUR ---
HAND-OFF: Report given to RADHA Hollingsworth.
--- NOTE | 2019-02-12 19:37 | NUR ---
NURSE NOTES: Patient is alert and oriented x4. turkish speaking. Patient is on room air. No reports of discomfort at this time. Side rails are upx2, bed is locked, in lowest position, and call light is within reach. Will continue to monitor.
[2019-02-12 20:00] VITALS: BP 98/58
[2019-02-12] MEDS ORDERED: Dyna-Hex 2% Top Sol 2oz TOPIC SCH (20:00)
[2019-02-12] MEDS ORDERED: cefTRIAXone 1 GM in D5W 55 ML IVPB SCH (22:00)
[2019-02-13] VITALS: BP 103/60
[2019-02-13 04:05] VITALS: BP 123/56
[2019-02-13 06:03] LABS: BASOPHILS % (AUTO) 0.9 % (0.0-2.0); EOSINOPHILS % (AUTO) 1.6 % (0.0-3.0); HEMATOCRIT 31.8 % (37.0-47.0); HEMOGLOBIN 10.1 G/DL (12.0-16.0); LYMPHOCYTES % (AUTO) 31.7 % (20.0-45.0); MEAN CORPUSCULAR VOLUME 88 FL (80-99); MONOCYTES % (AUTO) 17.1 % (1.0-10.0); NEUTROPHILS % (AUTO) 48.7 % (45.0-75.0); PLATELET COUNT 257 K/UL (150-450); RED BLOOD COUNT 3.63 M/UL (4.20-5.40); RED CELL DISTRIBUTION WIDTH 18.6 % (11.6-14.8); WHITE BLOOD COUNT 4.4 K/UL (4.8-10.8)
[2019-02-13 06:24] LABS: ALANINE AMINOTRANSFERASE 14 U/L (12-78); ALBUMIN 3.1 G/DL (3.4-5.0); ALBUMIN/GLOBULIN RATIO 0.9 (1.0-2.7); ALKALINE PHOSPHATASE 96 U/L (46-116); ANION GAP 10 mmol/L (5-15); ASPARTATE AMINO TRANSFERASE 18 U/L (15-37); BILIRUBIN,TOTAL 0.3 MG/DL (0.2-1.0); BLOOD UREA NITROGEN 9 mg/dL (7-18); CALCIUM 8.9 MG/DL (8.5-10.1); CARBON DIOXIDE 22 MMOL/L (21-32); CHLORIDE 105 MMOL/L (98-107); CREATININE 0.8 MG/DL (0.55-1.30); POTASSIUM 4.2 MMOL/L (3.5-5.1); SODIUM 137 MMOL/L (136-145)
[2019-02-13] MEDS: NovoLOG Insulin Flexpen SUBQ SCH ×2 (06:30→12:00)
--- NOTE | 2019-02-13 07:25 | NUR ---
HAND-OFF: Report given to RADHA Burnette.
[2019-02-13 08:00] VITALS: BP 99/59
--- NOTE | 2019-02-13 08:07 | NUR ---
NURSE NOTES: received pt in the bed, awake, alert, oriented, vital signs stable, no co pain, no SOB, respiration regular, pt has PICC line on left upper arm, colostomy, urostomy, tolerate diet well, skin warm anddry to touch, intact, bed in low position, call light within reach.
--- NOTE | 2019-02-13 08:09 | General Progress Note ---
Assessment/Plan Assessment/Plan: Impression: DVT (deep venous thrombosis) UTI negative Colon cancer History of Hypertension Previous Cervical Cancer Colostomy and uterostomy Paln: Lovenox--->Eliquis Levaquin -dc Trend Labs dc to home with outpatient follow up Subjective Allergies: Coded Allergies: METOCLOPRAMIDE (Verified Allergy, Unknown, 05/16/18) Subjective care noted Objective Last 24 Hour Vital Signs Date Time Temp Pulse Resp B/P (MAP) Pulse Ox O2 Delivery O2 Flow Rate FiO2 02/13/19 08:00 98.5 86 16 99/59 (72) 100 02/13/19 04:05 98.7 81 16 123/56 (78) 98 02/13/19 04:00 77 02/13/19 00:00 70 02/13/19 00:00 98.3 66 17 103/60 (74) 96 02/12/19 21:00 Room Air 02/12/19 20:00 66 02/12/19 20:00 98.5 70 18 98/58 (71) 96 02/12/19 16:00 67 02/12/19 16:00 98.3 71 22 135/66 (89) 97 02/12/19 12:00 65 02/12/19 12:00 98.2 66 20 91/53 (66) 100 Intake and Output 02/12/19 02/13/19 19:00 07:00 Intake Total 295 ml Balance 295 ml Intake Oral 240 ml IV Total 55 ml # Voids 2 Laboratory Tests 02/13/19 04:55: White Blood Count 4.4L, Red Blood Count 3.63L, Hemoglobin 10.1L, Hematocrit 31.8L, Mean Corpuscular Volume 88, Mean Corpuscular Hemoglobin 27.9, Mean Corpuscular Hemoglobin Concent 31.8L, Red Cell Distribution Width 18.6H, Platelet Count 257, Mean Platelet Volume 5.4L, Neutrophils (%) (Auto) 48.7, Lymphocytes (%) (Auto) 31.7, Monocytes (%) (Auto) 17.1H, Eosinophils (%) (Auto) 1.6, Basophils (%) (Auto) 0.9, Sodium Level 137, Potassium Level 4.2, Chloride Level 105, Carbon Dioxide Level 22, Anion Gap 10, Blood Urea Nitrogen 9, Creatinine 0.8, Estimat Glomerular Filtration Rate > 60, Glucose Level 108H, Calcium Level 8.9, Magnesium Level 1.5L, Total Bilirubin 0.3, Aspartate Amino Transf (AST/SGOT) 18, Alanine Aminotransferase (ALT/SGPT) 14, Alkaline Phosphatase 96, Pro-B-Type Natriuretic Peptide 114, Total Protein 6.5, Albumin 3.1L, Globulin 3.4, Albumin/Globulin Ratio 0.9L Height (Feet): 5 Height (Inches): 2.00 Weight (Pounds): 101 Objective WDWN NAD clear breath sounds bilaterally without rhonchi or wheeze [id number] without MRG NABS nontender no HSM no CC edema nonfocal Jian Sanchez MD Feb 13, 2019 08:09
[2019-02-13] MEDS: metFORMIN 500mg tab ORAL SCH (08:29)
[2019-02-13] MEDS: Enoxaparin Sodium 300mg/3ml vial SUBQ SCH (08:31)
--- NOTE | 2019-02-13 09:31 | NUR ---
CASE MANAGEMENT:REVIEW 63 YR OLD FEMALE FROM HOME TO ER CC: EDEMA X2 WEEKS. PAIN WITH URINATION PMH: COLON CANCER. COLOSTOMY SI: BLE EDEMA. DVT. UTI. ANEMIA 98.1 75 16 95/43 100% ON RA H/H-8.9/28.0 BNP+306 IS: IV LASIX IV ROCEPHIN LOVENOX SQ ABDOMINAL XRAY CHEST XRAY : TO TELEMETRY 02/13/19 SI: ACUTE DVT 98.5 86 16 99/59 100% ON RA MAG-1.5 IS: IV MAG SULFATE Q1HRS X2 BAGS IV ROCEPHIN Q24 IV LASIX Q12 K-DUR PO QD LOVENOX SQ Q12 : TELEMETRY STATUS DCP: FROM HOME INTERQUAL CRITERIA MET
[2019-02-13 12:01] VITALS: BP 111/61
--- NOTE | 2019-02-13 15:50 | NUR ---
NURSE NOTES: pt discharge home as ordered, condition stable, discharge instruction given, RX given.
--- NOTE | 2019-02-13 16:15 | Progress Note ---
DATE: 02/13/2019 CARDIOLOGY PROGRESS NOTE SUBJECTIVE: No signs of bleeding. No chest pain. No shortness of breath. Leg swelling has nearly resolved. OBJECTIVE: VITAL SIGNS: Blood pressure 99/59, earlier 123/56, heart rate 81, respiratory rate 16. LUNGS: Clear. CARDIAC: Regular. Normal S1, S2. ABDOMEN: Soft. Colostomy in place. EXTREMITIES: Trace dependent edema, right greater than left. LABORATORY DATA: White count 4.4, hemoglobin 10.1. Potassium , BUN 9, creatinine 0.8, magnesium 1.5. Albumin 3.1. IMPRESSION: 1. Acute DVT. 2. Colon cancer. 3. Lower extremity edema due to DVT and venous insufficiency. 4. Hypokalemia. PLAN: Continue Eliquis. IV magnesium. Outpatient chemotherapy. No role for diuretic therapy. Amado Phillips M.D. DR: TOMASA JOB#: [id number] CC:
[2019-02-13] MEDS ORDERED: Tubing IV Secondary IV ONE (16:51)
--- NOTE | 2019-02-13 20:13 | Cardiology Report ---
APPROVED REPORT EXAM: Two-dimensional and M-mode echocardiogram with Doppler and color Doppler. INDICATION Congestive Heart Failure M-Mode DIMENSIONS IVSd1.4 (0.7-1.1cm)Left Atrium (MM)3.6 (1.6-4.0cm) LVDd2.2 (3.5-5.6cm)Aortic Root3.1 (2.0-3.7cm) PWd1.4 (0.7-1.1cm)Aortic Cusp Exc.1.6 (1.5-2.0cm) LVDs1.5 (2.5-4.0cm) PWs1.5 cm Technically difficult study due to poor acoustic windows. Study quality precludes accurate assessment of regional wall motion. Normal left ventricular chamber size, systolic function and wall motion. Left ventricular ejection fraction estimated to be 60 %. Mild left ventricular hypertrophy. No evidence of pericardial effusion. All other cardiac chamber sizes are within normal limits. Focal aortic valve sclerosis with adequate cusp excursion. Thickened mitral valve leaflets with normal excursion. Mitral annulus and aortic root calcification. Pulmonic valve not well visualized. Normal tricuspid valve structure. IVC is normal in size with physiological collapse. A color flow and spectral Doppler study was performed and revealed: No aortic regurgitation. Mild to moderate mitral regurgitation. Mitral diastolic velocities suggest mild left ventricular diastolic dysfunction (Grade I). Mild tricuspid regurgitation. Tricuspid systolic velocities suggests peak right ventricular systolic pressure of 21 mmHg. No pulmonic regurgitation present.
--- NOTE | 2019-02-13 20:31 | Cardiology Report ---
APPROVED REPORT EKG Measurement Heart [id number] Normal sinus rhythm Nonspecific ST abnormality Abnormal ECG
--- NOTE | 2019-02-14 17:56 | Discharge Summary ---
Discharge Summary Discharge Summary _ DATE OF ADMISSION: 02/11/2019 DATE OF DISCHARGE: 02/13/2019 DISCHARGED BY: Dr. Sanchez REASON FOR ADMISSION: 63 years old female with past medical history of colon cancer, diabetes mellitus , cervical cancer, presented to emergency department with complaint of lower extremity edema for several weeks. Patient had been undergoing chemotherapy for colon cancer. Last chemotherapy was on 02/10. She denied chest pain or shortness of breath She denied fever and chills. She denied calf pain, hemoptysis or dyspnea. Patient was not on any diuretic. Upon evaluation vital signs were stable. Laboratory work-up revealed no leukocytosis, hemoglobin 8.9, hematocrit 28, platelet count 220. Urinalysis revealed pyuria, positive for leukocyte esterase and few bacteria, + 1 protein. Stable electrolytes and renal parameters. Glucose 117. Troponin 0.014 , pro BNP 306. EKG revealed normal sinus rhythm, no acute ischemic changes. Albumin 2.9. Chest x-ray revealed no acute cardiopulmonary pathology. Venous duplex of bilateral lower extremity revealed acute thrombus in the right superficial femoral vein. Abdominal x-ray was negative. In emergency department patient started on Lovenox. Rocephin was given empirically for probable UTI. Patient admitted for further management. CONSULTANTS: ring striker [facility] COURSE: Patient admitted to medical surgical floor. Patient started on anticoagulation with Lovenox. Patient started on empiric antibiotic for UTI. Supportive care provided. Pain management was addressed as needed. GI prophylaxis provided. Colostomy and ureterostomy care provided. Blood pressure was closely monitored. Workers' Compensation Claims Examiner recommended full anticoagulation, given history of cancer. Potassium and magnesium were replaced. Protein supplements implemented in patient's diet. Workers' Compensation Claims Examiner followed. Telemetry demonstrated sinus rhythm. Per ring striker , no signs of acute myocardial infarction or ischemia. Echocardiogram was done to assess left ventricular function , which revealed preserved ejection fraction of 60% with mild left ventricular hypertrophy. No evidence of wall motion abnormality. No evidence of pericardial effusion. Mild to moderate mitral regurgitation. Right ventricular systolic pressure of 21. No role for chronic diuretic therapy at this time , as per ring striker. Hemoglobin and hematocrit were closely monitored with goal to keep hemoglobin above 7. Prior to discharge hemoglobin 10.1, hematocrit 21.8. Urine culture revealed gram-negative bacilli 2 different strains, both with colony count >100 K. Blood sugar was managed with metformin and sliding scale of insulin as needed. Upon discharge anticoagulation was changed to Eliquis , prescription provided. Complete antibiotic course for UTI. FINAL DIAGNOSES: Acute DVT right lower extremity superficial femoral vein UTI Colon cancer History of cervical cancer History of hypertension Colostomy and ureterostomy Hypokalemia Hypomagnesemia Anemia DISCHARGE MEDICATIONS: Prescription provided DISCHARGE INSTRUCTIONS: Patient was discharged home. Follow up with primary care provider in one week. I have been assigned to dictate discharge summary for this account. I was not involved in the patient's management. Jackie Alegre NP Feb 14, 2019 17:56
== END 2019-02-13 16:52 | disposition home or self-care (01) | DRG 197 ==
LOC: EMR 20:42 → EDBEDREQ 23:40 → 4E 23:48 → EDBEDREQ 02-12 00:14 → 2E 02-12 00:24
DX: I82.411 Acute embolism and thrombosis of right femoral vein (principal); I50.31 Acute diastolic (congestive) heart failure; E87.2 Acidosis; E44.0 Moderate protein-calorie malnutrition; C18.9 Malignant neoplasm of colon, unspecified; E83.42 Hypomagnesemia; D64.9 Anemia, unspecified; Z68.1 Body mass index [BMI] 19.9 or less, adult; I11.0 Hypertensive heart disease with heart failure; Z88.8 Allergy status to other drugs, medicaments and biological substances; N39.0 Urinary tract infection, site not specified; Z85.41 Personal history of malignant neoplasm of cervix uteri; Z43.3 Encounter for attention to colostomy; Z43.6 Encounter for attention to other artificial openings of urinary tract; E11.9 Type 2 diabetes mellitus without complications; I34.0 Nonrheumatic mitral (valve) insufficiency; E87.6 Hypokalemia
CPT/HCPCS: 36415; 71045; 74018; 80048; 80053; 81003; 82550; 82962; 83735; 83880; 84484; 85025; 85610; 85730; 86900; 86901; 87086; 87181; 93005; 93306; 93970; 96365; 96375; 99285; J1815; J8499

== ENCOUNTER 2019-06-07 18:58 | Emergency (ER) | payer OTHER ==
[~2019-06-07] VITALS: Ht 152.4 cm; Wt 45.4 kg
[2019-06-07 19:14] VITALS: BP 140/60
--- NOTE | 2019-06-07 19:14 | NUR ---
ED Nurse Note: pt walked in to ED for C/O pain & swelling to bilateral foot for weeks. pt denies injury. pt states she is currently on chemo therapy for colon cancer. pt is alert x4.
--- NOTE | 2019-06-07 20:41 | NUR ---
ED Nurse Note: blood sample sent down to lab
[2019-06-07 21:03] LABS: HEMATOCRIT 28.8 % (37.0-47.0); HEMOGLOBIN 10.2 G/DL (12.0-16.0); MEAN CORPUSCULAR VOLUME 86 FL (80-99); PLATELET COUNT 229 K/UL (150-450); RED BLOOD COUNT 3.36 M/UL (4.20-5.40); RED CELL DISTRIBUTION WIDTH 13.1 % (11.6-14.8); WHITE BLOOD COUNT 3.4 K/UL (4.8-10.8)
[2019-06-07 21:06] LABS: ANION GAP 7 mmol/L (5-15); BLOOD UREA NITROGEN 12 mg/dL (7-18); CALCIUM 7.9 MG/DL (8.5-10.1); CARBON DIOXIDE 23 MMOL/L (21-32); CHLORIDE 103 MMOL/L (98-107); CREATININE 0.9 MG/DL (0.55-1.30); SODIUM 133 MMOL/L (136-145)
[2019-06-07 21:09] LABS: INR 0.9 (0.9-1.1)
[2019-06-07 21:19] LABS: ALANINE AMINOTRANSFERASE 21 U/L (12-78); ALBUMIN 2.9 G/DL (3.4-5.0); ALBUMIN/GLOBULIN RATIO 0.7 (1.0-2.7); ALKALINE PHOSPHATASE 143 U/L (46-116); ASPARTATE AMINO TRANSFERASE 25 U/L (15-37); BILIRUBIN,TOTAL 0.2 MG/DL (0.2-1.0)
[2019-06-07 22:02] VITALS: BP 136/63
--- NOTE | 2019-06-07 22:04 | NUR ---
ED Nurse Note: PT IS IN BED RESTING IN BED. NO ACUTE DISTRESS IS NOTED AT THIS TIME. VSS
--- NOTE | 2019-06-07 22:15 | Emergency Room Report ---
History of Present Illness General Chief Complaint: Pain Source: Patient Present Illness HPI The patient states that she has had bilateral foot and ankle swelling. She states she has a history of colon cancer and is undergoing chemotherapy. She states that the swelling of the left leg has been much worse. She denies fever chills. She denies nausea or vomiting. She states that she does have pain in the left leg. She has seen another physician for this and she was told that it is related to her chemotherapy. She states that she has had this swelling for the past couple months. She denies trauma. She has no other complaints. Allergies: Coded Allergies: METOCLOPRAMIDE (Verified Allergy, Unknown, 05/16/18) Patient History Past Medical History: see triage record, DM, HTN, other - colon ca Past Surgical History: other - colostomy Social History: Denies: smoking, alcohol use, drug use Reviewed Nursing Documentation: PMH: Agreed; PSxH: Agreed Nursing Documentation-PMH Past Medical History: No History, Except For Hx Cardiac Problems: No Hx Hypertension: Yes Hx Pacemaker: No Hx Asthma: No Hx COPD: No Hx Diabetes: Yes Hx Cancer: Yes - cervical; colon Hx Gastrointestinal Problems: Yes - colostomy, ostomy Hx Dialysis: No Hx Neurological Problems: No Hx Cerebrovascular Accident: No Hx Seizures: No Review of Systems All Other Systems: negative except mentioned in HPI Physical Exam Vital Signs Date Time Temp Pulse Resp B/P (MAP) Pulse Ox O2 Delivery O2 Flow Rate FiO2 06/07/19 19:07 98.1 78 16 143/65 (91) 99 Room Air Sp02 EP Interpretation: reviewed, normal General Appearance: no apparent distress, alert, GCS 15, non-toxic Head: normocephalic, atraumatic Eyes: bilateral eye normal inspection, bilateral eye PERRL ENT: hearing grossly normal, normal pharynx, no angioedema, normal voice Neck: full range of motion, supple/symm/no masses Respiratory: chest non-tender, lungs clear, normal breath sounds, no respiratory distress, no retraction, no accessory muscle use, speaking full sentences Cardiovascular #1: regular rate, rhythm, no edema Gastrointestinal: normal bowel sounds, non tender, soft, non-distended, no guarding, no rebound, other - colostomy bag in place Rectal: deferred Musculoskeletal: back normal, normal range of motion, swelling - BLE L>R. No warmth or erythema. Neurologic: alert, oriented x3, responsive, motor strength/tone normal, sensory intact, speech normal Psychiatric: judgement/insight normal, memory normal, mood/affect normal, no suicidal/homicidal ideation Skin: no rash, normal color Medical Decision Making Diagnostic Impression: Primary Impression: Lymphedema of both lower extremities ER Course This patient has lymphedema of her bilateral lower extremities. She has left- sided lymphedema that is greater than the right side. She underwent venous Doppler ultrasounds of bilateral lower extremities and there is no evidence of DVT. There is no evidence of cellulitis. Overall the patient's evaluation is benign. The patient was instructed to follow-up closely with her primary care physician. No emergency medical conditions identified. Laboratory Tests Test 06/07/19 20:28 White Blood Count 3.4 K/UL (4.8-10.8) L Red Blood Count 3.36 M/UL (4.20-5.40) L Hemoglobin 10.2 G/DL (12.0-16.0) L Hematocrit 28.8 % (37.0-47.0) L Mean Corpuscular Volume 86 FL (80-99) Mean Corpuscular Hemoglobin 30.2 PG (27.0-31.0) Mean Corpuscular Hemoglobin Concent 35.2 G/DL (32.0-36.0) Red Cell Distribution Width 13.1 % (11.6-14.8) Platelet Count 229 K/UL (150-450) Mean Platelet Volume 4.8 FL (6.5-10.1) L Neutrophils (%) (Auto) % (45.0-75.0) Lymphocytes (%) (Auto) % (20.0-45.0) Monocytes (%) (Auto) % (1.0-10.0) Eosinophils (%) (Auto) % (0.0-3.0) Basophils (%) (Auto) % (0.0-2.0) Differential Total Cells Counted 100 Neutrophils % (Manual) 62 % (45-75) Lymphocytes % (Manual) 30 % (20-45) Monocytes % (Manual) 8 % (1-10) Eosinophils % (Manual) 0 % (0-3) Basophils % (Manual) 0 % (0-2) Band Neutrophils 0 % (0-8) Platelet Estimate Adequate Platelet Morphology Normal Red Blood Cell Morphology Normal Prothrombin Time 9.2 SEC (9.30-11.50) L Prothrombin Time INR 0.9 (0.9-1.1) PTT 26 SEC (23-33) Sodium Level 133 MMOL/L (136-145) L Potassium Level 4.0 MMOL/L (3.5-5.1) Chloride Level 103 MMOL/L (98-107) Carbon Dioxide Level 23 MMOL/L (21-32) Anion Gap 7 mmol/L (5-15) Blood Urea Nitrogen 12 mg/dL (7-18) Creatinine 0.9 MG/DL (0.55-1.30) Estimate Glomerular Filtration Rate > 60 mL/min (>60) Glucose Level 114 MG/DL (74-106) H Calcium Level 7.9 MG/DL (8.5-10.1) L Total Bilirubin 0.2 MG/DL (0.2-1.0) Aspartate Amino Transferase (AST) 25 U/L (15-37) Alanine Aminotransferase (ALT) 21 U/L (12-78) Alkaline Phosphatase 143 U/L (46-116) H Total Protein 6.9 G/DL (6.4-8.2) Albumin 2.9 G/DL (3.4-5.0) L Globulin 4.0 g/dL Albumin/Globulin Ratio 0.7 (1.0-2.7) L CT/MRI/US Diagnostic Results CT/MRI/US Diagnostic Results : Imaging Test Ordered: US BLE Impression No DVT. Last Vital Signs Date Time Temp Pulse Resp B/P (MAP) Pulse Ox O2 Delivery O2 Flow Rate FiO2 06/07/19 22:02 98.0 82 16 136/63 98 Room Air Status: improved Disposition: HOME, SELF-CARE Condition: Improved Pamela Quigley DO Jun 07, 2019 22:15
[2019-06-07] MEDS ORDERED: NORCO 5-325 TA1 EACH ORAL (22:16)
[2019-06-07 22:23] VITALS: BP 130/60
--- NOTE | 2019-06-07 22:23 | NUR ---
ER DISCHARGE NOTE: Patient is cleared to be discharged per ERMD, pt is aox4, on room air, with stable vital signs. pt was given dc and prescription instructions, pt was able to verbalize understanding, pt id band removed without complications. pt is able to ambulate with steady gait. pt took all belongings.
== END 2019-06-07 22:25 | disposition home or self-care (01) ==
LOC: EMR 21:07
DX: I89.0 Lymphedema, not elsewhere classified (principal); Z85.038 Personal history of other malignant neoplasm of large intestine; Z88.8 Allergy status to other drugs, medicaments and biological substances; E11.9 Type 2 diabetes mellitus without complications; I10 Essential (primary) hypertension
CPT/HCPCS: 36415; 80053; 85007; 85025; 85610; 85730; 93970; Z7502; 99284

== ENCOUNTER 2020-04-06 11:47 | Emergency (ER) | payer OTHER ==
[~2020-04-06] VITALS: Ht 152.4 cm; Wt 42.6 kg
--- NOTE | 2020-04-06 12:05 | Emergency Room Report ---
History of Present Illness General Chief Complaint: Multiple Trauma/Fall Source: Patient Present Illness HPI Patient is a 65-year-old female past medical history of diabetes, hypertension and rheumatoid arthritis who presents to the ER complaining of left-sided rib pain. Patient states that she tripped and fell 6 days ago and that her left elbow went and pushed into her left ribs. Since then she complains of left- sided rib pain. She denies any head trauma or loss of consciousness. Patient states that she is not on any blood thinners only on daily baby aspirin. She denies any headache or blurry vision. She denies any focal weakness. She denies any shortness of breath or cough. Patient denies any pain at her left elbow. 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 COVID-19 Screening: Negative COVID-19 COVID-19 Testing Source: 2months ago Patient History Reviewed Nursing Documentation: PMH: Agreed; PSxH: Agreed Nursing Documentation-PMH Hx Cardiac Problems: No Hx Hypertension: Yes Hx Pacemaker: No Hx Asthma: No Hx COPD: No Hx Diabetes: Yes Hx Cancer: Yes - cervical; colon Hx Gastrointestinal Problems: Yes - colostomy, ostomy Hx Dialysis: No Hx Neurological Problems: No Hx Cerebrovascular Accident: No Hx Seizures: No Review of Systems All Other Systems: negative except mentioned in HPI Physical Exam Vital Signs Date Time Temp Pulse Resp B/P (MAP) Pulse Ox O2 Delivery O2 Flow Rate FiO2 04/06/20 11:53 98.8 57 20 101/53 (69) 99 Room Air Sp02 EP Interpretation: reviewed, normal General Appearance: no apparent distress, alert, GCS 15, non-toxic Head: normocephalic, atraumatic Eyes: bilateral eye normal inspection, bilateral eye PERRL ENT: hearing grossly normal, normal pharynx, no angioedema, normal voice Neck: full range of motion, supple/symm/no masses Respiratory: lungs clear, normal breath sounds, speaking full sentences, other - Left-sided anterior rib tenderness to palpation Cardiovascular #1: bradycardia Gastrointestinal: non tender, soft, other - Colostomy bag in the left lower quadrant Rectal: deferred Genitourinary: no CVA tenderness Musculoskeletal: normal range of motion, no calf tenderness, no lower extremity edema, non-tender Neurologic: bond manager III-XII nml as tested, oriented x3 Psychiatric: no suicidal/homicidal ideation Skin: no rash Lymphatic: no adenopathy Medical Decision Making Diagnostic Impression: Primary Impression: Rib contusion Additional Impression: Fall ER Course Patient presents with rib pain after fall. CT demonstrates no acute fractures or pneumothorax. Patient given tramadol for pain relief. After discussing risks and benefits of further diagnostics, treatment plans, as well as indications for and risks of admission, the patient is agreeable to being discharged home. I have explained that their evaluation and treatment in the emergency department today is an important step towards them achieving better health but that their evaluation today is not intended to replace further evaluation and treatment by a physician in their local clinic. I have explained that while the current findings suggest no immediate life threatening emergency they will require further evaluation and treatment by a physician of their choice in their area. They understand that it will be necessary for them to review the final reports of their ED visit with their clinic physician. We have reviewed indications for return to the Emergency Department. I have explained that additional time may need to pass and/or additional testing as an outpatient may be necessary before a definitive diagnosis can be made. They tell me they are willing to follow up as instructed within the timeframe I recommend. They appear to understand what we discussed. Additionally they understand that if they are unable to be seen by an outpatient physician they are welcome, and in fact should, return to the Emergency Department for a repeat evaluation. The patient is stable at time of discharge. Last Vital Signs Date Time Temp Pulse Resp B/P (MAP) Pulse Ox O2 Delivery O2 Flow Rate FiO2 04/06/20 11:53 98.8 57 20 101/53 (69) 99 Room Air Disposition: HOME, SELF-CARE Condition: Stable Scripts Tramadol Hcl* (ULTRAM*) 50 Mg Tablet 50 MG ORAL Q6H PRN for For Pain, #12 TAB 0 Refills Prov: Marsha Cohen M.D. 04/06/20 Additional Instructions: The patient was provided with discharge instructions, notified to follow-up with a primary care doctor and or specialist in the next 24-48 hours, and to return to the ED if they have worsening of their symptoms. Please note that this report is being documented using DRAGON technology. This can lead to erroneous entry secondary to incorrect interpretation by the dictating instrument. Marsha Cohen M.D. Apr 06, 2020 12:05
[2020-04-06 12:12] VITALS: BP 101/53
[2020-04-06] MEDS ORDERED: traMADol 50mg tab ORAL ONE (12:15)
--- NOTE | 2020-04-06 13:09 | Diagnostic Imaging Report ---
EXAM: CT Chest Without Intravenous Contrast CLINICAL HISTORY: FALL TECHNIQUE: Axial computed tomography images of the chest without intravenous contrast. CTDI is 3.10 mGy and DLP is 120.30 mGy-cm. One or more of the following dose reduction techniques were used: automated exposure control, adjustment of the mA and/or kV according to patient size, use of iterative reconstruction technique. COMPARISON: No relevant prior studies available. FINDINGS: Lungs: Peripheral linear opacities. Suspect chronic interstitial lung disease/fibrosis. 5 mm right upper lobe nodule along the oblique fissure on series 5, image 28. If there are risk factors for malignancy, consider 12 month follow-up. Pleural space: No pneumothorax. No significant effusion. Heart: Coronary atherosclerosis. Bones/joints: No acute fracture. No dislocation. Spinal hyperostosis Soft tissues: Unremarkable. Vasculature: Mild aortic atherosclerosis. No thoracic aortic aneurysm. IMPRESSION: No acute thoracic injury.
[2020-04-06] MEDS ORDERED: TRAMADOL HCL50 MG ORAL (13:10)
[2020-04-06 13:19] VITALS: BP 105/55
== END 2020-04-06 13:19 | disposition home or self-care (01) ==
LOC: EMR 12:06
DX: S20.212A Contusion of left front wall of thorax, initial encounter (principal); W01.0XXA Fall on same level from slipping, tripping and stumbling without subsequent striking against object, initial encounter; Y92.9 Unspecified place or not applicable; Z88.8 Allergy status to other drugs, medicaments and biological substances; I10 Essential (primary) hypertension; E11.9 Type 2 diabetes mellitus without complications; Z85.41 Personal history of malignant neoplasm of cervix uteri; Z85.038 Personal history of other malignant neoplasm of large intestine; Z79.82 Long term (current) use of aspirin; Z93.3 Colostomy status
CPT/HCPCS: 71250; Z7502; 99284